=== PATIENT | male | born 1950 | race Caucasian/White ===

== ENCOUNTER 2020-03-25 06:07 | Emergency (ER) | payer MEDICARE, SELFPAY ==
[2020-03-25 06:12] VITALS: BP 144/79; PULSE 85; RESP 18; TEMP 36.7; O2SAT 98
--- NOTE | 2020-03-25 06:16 | ECG_ITS ---
Measurements Intervals [place] Rate: 85 P: 22 [place]: 154 QRS: -7 QRSD: 97 T: 0 QT: 407 QTc: 484 Interpretive Statements SINUS RHYTHM NONSPECIFIC ST & T-WAVE ABNORMALITY- DIFFUSE LEADS BASELINE ARTIFACT- II, III, AVR, AVL, AVF, V1-V4 BORDERLINE ECG Electronically Signed On 03-25-2020 7:00:24 CDT by Elian Beth D.O.
--- NOTE | 2020-03-25 06:22 | PC.NURSE ---
pt ambulated to restroom w/ no difficulty.
[2020-03-25 06:28] LABS: Basophils Percent Auto 0.4 % (0.2-1.2); Eosinophils Absolute Auto 0.1 K/mm3 (0-0.3); Eosinophils Percent Auto 1.2 % (0-4.4); Hematocrit 42.1 % (42.0-52.0); Hemoglobin 14.9 g/dL (14.0-18.0); Immature Granulocyte Absolute 0.02 K/mm3 (0.00-0.031); Immature Granulocyte Percent A 0.2 % (0-0.5); Lymphocytes Absolute Auto 2.41 K/mm3 (0.9-3.2); Lymphocytes Percent Auto 27.1 % (18.3-44.2); Mean Corpuscular HGB Conc 35.4 g/dl (32-36); Mean Corpuscular Hemoglobin 31.2 pg (26-34); Mean Corpuscular Volume 88.3 fl (80-100); Mean Platelet Volume 8.8 fl (7.4-10.4); Monocytes Absolute Auto 0.9 K/mm3 (0.1-0.6); Neutrophils Absolute Auto 5.4 K/mm3 (1.3-6.7); Neutrophils Percent Auto 61.1 % (45.5-73.1); Platelet Count Result 354 k/mm3 (150-375); Red Blood Count 4.77 M/mm3 (4.6-6.20); Red Cell Distribution Width 13.2 % (11.5-14.5); White Blood Count 8.9 K/mm3 (4.5-10.0)
[2020-03-25 06:40] LABS: Alanine Aminotransferase 81 U/L (4-50); Albumin Level 4.2 g/dL (3.5-5.1); Alkaline Phosphatase 86 U/L (38-126); Anion Gap 12.1 mmol/L (7-16); Aspartate Amino Transferase 58 U/L (17-59); Bilirubin,Total 0.5 mg/dL (0.2-1.3); Blood Urea Nitrogen 11 mg/dL (9-20); Calcium 8.5 mg/dL (8.4-10.2); Carbon Dioxide 24 mmol/L (22-30); Chloride 106 mmol/L (98-107); Estimated CRCL calculation 115 ml/min; Estimated Glomerular Filt Rate > 60; Glucose 105 mg/dL (75-110); Potassium 3.1 mmol/L (3.4-5.0); Sodium 139 mmol/L (137-145)
[2020-03-25 06:40] LABS: Add Urine Microscopic? YES; Appearance Urine Clear (Clear); Bilirubin Urine Negative (Negative); Blood Urine Negative (Negative); Color Urine Yellow (Yellow); Glucose Urine UA Negative (Negative); Ketones Urine Trace mg/dL (Negative); Leukocyte Esterase Ur Negative LEU/UL (Negative); Mucus Urine Rare /lpf; Nitrate Urine Negative (Negative); Protein Urine Negative (Negative); RBC Urine 0-2 /hpf (0-2); Specific Grav Ur 1.025 (1.001-1.035); Squamous Epithelial Cell Urine Rare /hpf (Few); WBC Urine 0-3 /hpf
--- NOTE | 2020-03-25 07:39 | ED.GENADULT ---
HPI - General Adult General Chief complaint: Weakness Stated complaint: weakness Time Seen by Provider: 03/25/20 07:07 History of Present Illness HPI narrative: Patient is a 69-year-old male who presents the ER with fatigue. Reports she is unable to sleep last night and came to the hospital hoping he could obtain a prescription for a sleeping pill. She has tried no sleeping aids tonight. Unsure why cannot fall asleep. He has no other complaints other than the fact that he is developed some aching in his lower extremities in the last 30 to 60 minutes since being in the ER. Patient is not feeling much sleepier. He has no complaints of chest pain, dyspnea, fever, chills, nausea, vomiting. Related Data Home Medications Medication Instructions Recorded Confirmed Bupenorphine 08/21/19 Zalepon 08/21/19 amlodipine 5 mg PO DAILY 08/21/19 08/21/19 finasteride 5 mg PO DAILY 08/21/19 08/21/19 gabapentin 400 mg PO BID 08/21/19 08/21/19 hydrochlorothiazide 25 mg PO DAILY 08/21/19 08/21/19 meloxicam 15 mg PO DAILY 08/21/19 08/21/19 nortriptyline 75 mg PO HS 08/21/19 08/21/19 pramipexole 0.25 mg PO BID 08/21/19 08/21/19 tamsulosin 0.8 mg PO HS 08/21/19 08/21/19 Allergies Allergy/AdvReac Type Severity Reaction Status Date / Time No Known Allergies Allergy Mild Verified 08/21/19 13:31 Review of Systems Review of Systems: All systems reviewed & are unremarkable except as noted in HPI and below Constitutional: Constitutional: Denies chills and Denies fever(s) Cardiovascular: Cardiovascular: Denies chest pain Respiratory: Respiratory: Denies cough and Denies dyspnea Gastrointestinal: Gastrointestinal: Denies abdominal pain, Denies nausea and Denies vomiting Musculoskeletal: Comments: Aches in lower extremities bilaterally. [facility] Past Medical History Medical History (Updated 03/25/20 @ 07:51 by Ra Winn MD) Anxiety BPH (benign prostatic hyperplasia) Depression HTN (hypertension), benign Sleep apnea Surgical History Surgical History (Updated 03/25/20 @ 07:48 by Ra Winn MD) No pertinent past surgical history Social History Social History (Updated 03/25/20 @ 07:48 by Ra Winn MD) Social History: Denies smoking Exam Narrative: Exam Narrative: GENERAL: Well-appearing, well-nourished, and in no acute distress. HEAD: Normocephalic, atraumatic. ENT: Mucous membranes moist. CHEST: Clear to auscultation. No respiratory distress. HEART: Regular rate and rhythm. Normal peripheral pulses. ABDOMEN: Soft, nontender, nondistended. EXTREMITIES: Normal range of motion. No edema. Negative Homans sign. SKIN: Warm, dry, no rash. NEURO: Alert and oriented x3. Course Course Emergency Course: Unremarkable evaluation. Discussed with patient that sleeping pills or not prescribed to the ER. Recommend follow-up with PCP. Unremarkable lab work and EKG. Vital Signs Vital signs: Vital Signs Temperature 98.0 F 03/25/20 06:12 Pulse Rate 85 03/25/20 06:12 Respiratory Rate 18 03/25/20 06:12 Blood Pressure 144/79 H 03/25/20 06:12 Pulse Oximetry 98 03/25/20 06:12 Temperature 98.0 F 03/25/20 06:12 Pulse Rate 85 03/25/20 06:12 Respiratory Rate 18 03/25/20 06:12 Blood Pressure 144/79 H 03/25/20 06:12 Pulse Oximetry 98 03/25/20 06:12 Medical Decision Making Vital Signs Vital Signs: Vital Signs Temperature 98.0 F 03/25/20 06:12 Pulse Rate 85 03/25/20 06:12 Respiratory Rate 18 03/25/20 06:12 Blood Pressure 144/79 H 03/25/20 06:12 Pulse Oximetry 98 03/25/20 06:12 Temperature 98.0 F 03/25/20 06:12 Pulse Rate 85 03/25/20 06:12 Respiratory Rate 18 03/25/20 06:12 Blood Pressure 144/79 H 03/25/20 06:12 Pulse Oximetry 98 03/25/20 06:12 Lab Data Result diagrams: 03/25/20 06:20 03/25/20 06:20 Labs: Lab Results 03/25/20 03/25/20 03/25/20 Range/Units 06:20 06:20 06:29 WBC 8.9 (4.5-
[2020-03-25 08:01] VITALS: BP 151/76; PULSE 83; RESP 20; O2SAT 98
== END 2020-03-25 08:02 | disposition home or self-care (01) ==
PROVIDERS: Emergency Medicine; Emergency Provider Emergency Medicine
DX: R53.83 Other fatigue (principal); G47.9 Sleep disorder, unspecified; F41.9 Anxiety disorder, unspecified; N40.0 Benign prostatic hyperplasia without lower urinary tract symptoms; F32.9 Major depressive disorder, single episode, unspecified; I10 Essential (primary) hypertension; G47.30 Sleep apnea, unspecified; R94.31 Abnormal electrocardiogram [ECG] [EKG]
CPT/HCPCS: 36415; 80053; 81001; 85025; 93005; 99283

== ENCOUNTER 2020-03-28 14:36 | Emergency (ER) | payer MEDICARE, SELFPAY ==
[2020-03-28 14:54] VITALS: BP 154/81; PULSE 92; RESP 20; TEMP 36.4; O2SAT 98
--- NOTE | 2020-03-28 15:25 | ED.MALEGU ---
HPI - Male Genitourinary General Chief complaint: Urogenital-Male Stated complaint: pos bladder infection Source: patient and RN notes reviewed Mode of arrival: ambulatory Limitations: no limitations History of Present Illness HPI Narrative: The patient, who has a prior history of BPH and quinolone resistant E. coli UTI, presents with urinary frequency. Patient states he has had recent normal lab testing including creatinine; and now has about 1/2-week or 3-day history of urinary frequency & urgency. No fever, low back pain, hematuria, abdominal pain, discharge, rash, noncompliance with meds [Proscar, Flomax etc]. Symptoms are like prior UTI couple years ago, are mild, keep him awake at night/insomnia, and are worse with micturition. Related Data Home Medications Medication Instructions Recorded Confirmed Bupenorphine 08/21/19 Zalepon 08/21/19 amlodipine 5 mg PO DAILY 08/21/19 03/28/20 finasteride 5 mg PO DAILY 08/21/19 03/28/20 gabapentin 400 mg PO BID 08/21/19 03/28/20 hydrochlorothiazide 25 mg PO DAILY 08/21/19 03/28/20 meloxicam 15 mg PO DAILY 08/21/19 03/28/20 nortriptyline 75 mg PO HS 08/21/19 03/28/20 pramipexole 0.25 mg PO BID 08/21/19 03/28/20 tamsulosin 0.8 mg PO HS 08/21/19 03/28/20 Allergies Allergy/AdvReac Type Severity Reaction Status Date / Time No Known Allergies Allergy Mild Verified 03/28/20 15:06 Review of Systems Review of Systems: Narrative: General/Constitutional: No weight loss,fever Eyes: N0: Redness,discharge Ears/Nose/Throat: No: Epistaxis,ear discharge Respiratory: Denies: Hemoptysis Gastrointestinal: No Vomiting, Bleeding-rectal Skin: No Lumps, eruption Neurologic: No Focal Weakness,Sz Hematologic: Denies: Petechiae/Purpura Psychiatric: No: Suicida ideationl All Other Systems: Reviewed and Negative [facility] Past Medical History Medical History (Updated 03/28/20 @ 15:53 by Alton Miller MD) Anxiety BPH (benign prostatic hyperplasia) Depression HTN (hypertension), benign Sleep apnea Surgical History Surgical History (Updated 03/25/20 @ 07:48 by aR Winn MD) No pertinent past surgical history Social History Social History (Updated 03/25/20 @ 07:48 by Ra Winn MD) Social History: Denies smoking Comments At time of signature, agree with nursing past medical, surgical, social and family history. There is no relevant family history pertinent to the presenting complaint Exam Narrative: Exam Narrative: General Appearance: Well appearing, Conjunctiva clear Ears: External ear normal Nose: Normal nose Mouth/Throat: Normal appearing, Normal lips Supple Respiratory: Airway patent, No respiratory distress Cardiovascular: no JVD Abdomen: Soft, Non-tender, No massess, overweight, No organomegaly (no rebound/ surgical signs), no CVAT Musculoskeletal: Full strength Skin: Warm, Dry Neurological: A&O x3, Normal affect Course Vital Signs Vital signs: Vital Signs Temperature 97.6 F 03/28/20 14:54 Pulse Rate 92 03/28/20 14:54 Respiratory Rate 20 03/28/20 14:54 Blood Pressure 154/81 H 03/28/20 14:54 Pulse Oximetry 98 03/28/20 14:54 Temperature 97.6 F 03/28/20 14:54 Pulse Rate 92 03/28/20 14:54 Respiratory Rate 20 03/28/20 14:54 Blood Pressure 154/81 H 03/28/20 14:54 Pulse Oximetry 98 03/28/20 14:54 MDM - Male Genitourinary Lab Data Labs: Urine Glucose Negative Reference Range: Negative Urine Bilirubin Negative Reference Range: Negative Urine Ketone Negative Reference Range: Negative Urine Specific [place] 1.025 Reference Range:1.001-1.035 Urine Blood Trace Reference Range: Negative * * Urine pH 6.5 Reference Range: 5.0-9.0 Urine Protein Negative Reference Range: Negativ
== END 2020-03-28 15:46 | disposition home or self-care (01) ==
PROVIDERS: Emergency Provider Emergency Medicine
DX: R35.0 Frequency of micturition (principal); G47.00 Insomnia, unspecified; I10 Essential (primary) hypertension; N40.0 Benign prostatic hyperplasia without lower urinary tract symptoms
CPT/HCPCS: 81003; 87086; 99213; G0463

== ENCOUNTER 2023-08-09 14:30 | Emergency (ER) | payer MEDICARE, SELFPAY ==
--- NOTE | ~2023-08-09 | XR_ITS ---
XR hip LT min 2V 08/09/2023 15:05 INDICATION: Left hip pain for 4 days. Prior surgery. PROCEDURE: 2 views left hip COMPARISON: No prior studies for comparison. FINDINGS: Fracture, dislocation or subluxation is not identified. There is mild osteoarthritis of the hip. The soft tissues appear within normal limits. No foreign bodies are identified. There is an in tramedullary annabelle and interlocking screw involving the proximal aspect of the femur. IMPRESSION: 1: NO ACUTE BONE OR JOINT ABNORMALITY IDENTIFIED. Reviewed, dictated and finalized at location A. [employer]
[2023-08-09 14:40] VITALS: BP 146/73; PULSE 70; RESP 18; TEMP 36.3; O2SAT 100
[2023-08-09] MEDS: KETOROLAC 30 MG/ML VIAL (*BKC) IM (16:44)
[2023-08-09] MEDS: diazePAM (*CRX) 2 MG TABLET PO (16:44)
--- NOTE | 2023-08-09 17:19 | ED.GENADULT ---
HPI - General Adult General Chief complaint: Extremity Problem,Nontraumatic Stated complaint: left hip pain Time Seen by Provider: 08/09/23 16:02 History of Present Illness HPI narrative: Patient is a 72-year-old male who presents ER with pain behind his left leg moving towards the hip. Ongoing for several days. Yesterday was having trouble getting up out of a rolling chair and required multiple people to help pull him up. Today he has been unable to stand up out of a chair and has been having bowel movements on himself. He when he is assisted to standing he shot some pain has pain behind the thigh. It is not located in his back. No known fall or trauma. Outpatient x-ray at [facility] was negative for injury several days ago. Patient has no swelling to the leg. No chest pain or shortness of breath. Has tried alternating Tylenol and ibuprofen which helped initially but is no longer controlling the discomfort. Patient does have some dementia and history is obtained from his . Related Data Home Medications Medication Instructions Recorded Confirmed Bupenorphine 08/21/19 Zalepon 08/21/19 amlodipine 5 mg tablet 5 mg PO DAILY 08/21/19 03/28/20 finasteride 5 mg tablet 5 mg PO DAILY 08/21/19 03/28/20 gabapentin 400 mg capsule 400 mg PO BID 08/21/19 03/28/20 hydrochlorothiazide 25 mg tablet 25 mg PO DAILY 08/21/19 03/28/20 meloxicam 15 mg tablet 15 mg PO DAILY 08/21/19 03/28/20 nortriptyline 25 mg capsule 75 mg PO HS 08/21/19 03/28/20 pramipexole 0.25 mg tablet 0.25 mg PO BID 08/21/19 03/28/20 tamsulosin 0.4 mg capsule 0.8 mg PO HS 08/21/19 03/28/20 Allergies Allergy/AdvReac Type Severity Reaction Status Date / Time No Known Allergies Allergy Mild Verified 08/09/23 16:01 Review of Systems Musculoskeletal: Musculoskeletal: Denies back pain, Reports arthralgias and Denies joint swelling Integumentary/Breasts: Skin/Breast: Denies erythema and Denies rash Neurologic: Denies focal weakness and Denies numbness [facility] Past Medical History Medical History (Updated 08/09/23 @ 17:59 by Ra Winn MD) Anxiety BPH (benign prostatic hyperplasia) Depression HTN (hypertension), benign Sleep apnea Surgical History Surgical History (Updated 03/25/20 @ 07:48 by Ra Winn MD) No pertinent past surgical history Social History Social History (Updated 03/25/20 @ 07:48 by Ra Winn MD) Social History: Denies smoking Exam Narrative: GENERAL: Well-appearing, well-nourished, and in no acute distress. HEAD: Normocephalic, atraumatic. CHEST: Clear to auscultation. No respiratory distress. HEART: Regular rate and rhythm. Normal peripheral pulses. EXTREMITIES: Normal range of motion. No edema. Pain with straight leg raise on the left side and pain is located at the posterior aspect of the mid and proximal thigh. There is no palpable spasm. No visual evidence of trauma to the extremity. SKIN: Warm, dry, no rash. NEURO: Awake alert and neurologic baseline. PSYCH: Normal mood and affect. Course Course Emergency Course: Patient with persistent pain despite Toradol and 9:00 a.m.. He has pain when trying to ambulate. would like to have him go back to his facility and feels like he receives excellent care despite mobility limitation. Will continue take Tylenol and ibuprofen for the pain in medial and on muscle relaxers for home. It is felt this is a muscular injury. Imaging negative. Vital Signs Vital signs: Vital Signs Temperature 97.3 F L 08/09/23 14:40 Pulse Rate 70 08/09/23 14:40 Respiratory Rate 18 08/09/23 14:40 Blood Pressure 146/73 H 08/09/23 14:40 Pulse Oximetry 100 08/09/23 14:40 Oxygen Delivery Room Air 08/09/23 14:40 Temperature 97.3 F L 08/09/23 14:40 Pulse Rate 82 08/09/23 18:29 Respiratory Rate 21 H 08/09/23 18:29 Blood Pressure 152/84 H 08/09/23 18:29 Pulse Oximetry 96 08/09/23 18:29 Oxygen Delivery Room Air 08/09
[2023-08-09 18:29] VITALS: BP 152/84; PULSE 82; RESP 21; O2SAT 96
== END 2023-08-09 18:31 | disposition home or self-care (01) ==
PROVIDERS: Emergency Provider Emergency Medicine
DX: S76.812A Strain of other specified muscles, fascia and tendons at thigh level, left thigh, initial encounter (principal); T14.90XA Injury, unspecified, initial encounter; F03.90 Unspecified dementia, unspecified severity, without behavioral disturbance, psychotic disturbance, mood disturbance, and anxiety; I10 Essential (primary) hypertension
CPT/HCPCS: 73502; 96372; 99283; A9270; J1885

== ENCOUNTER → 2023-09-15 08:07 | Outpatient (CLI) | payer MEDICARE, SELFPAY ==
--- NOTE | ~2023-09-15 | CT_ITS ---
EXAMINATION: CT pelvis w con, CT hip RT w con DATE: 09/15/2023 09:06 INDICATION: Bilateral hip pain TECHNIQUE: 1. High resolution computed tomography (CT) of the pelvis was performed with 100 mL Omnipaque-350 int ravenous contrast. Additional sagittal and coronal reconstructions were performed. Automated exposure control and iterative reconstruction technique were employed. 2. CT of the right hip was obtained with 100 mL Omnipaque 350 intravenous contrast including small fi eld-of-view axial images and coronal reconstructed images right hip. Automated exposure control and i terative reconstruction technique were employed. The dose-length product of the combined studies was 718.14 mGy-cm. COMPARISON: Left hip radiographs dated 08/10/2023 FINDINGS: Bone alignment is normal. Partially visualized retrograde intramedullary annabelle fixation at the left fem oral diaphysis with subtrochanteric interlocking screw. No acute fracture or suspected avascular necr osis. Mild bilateral hip and sacroiliac osteoarthritis. No hip joint effusions, pelvis other abnormal free fluid in the pelvis or other abnormal fluid collections. Mild lower lumbar spondylosis with sev ere bilateral facet osteoarthritis at L5-S1 and moderate left and mild right facet osteoarthritis at L4-5. Visualized portions of bowels including the appendix are normal. Bladder is normal. No patholog ically enlarged pelvic or inguinal lymphadenopathy. IMPRESSION: 1. Mild bilateral hip and sacroiliac osteoarthritis. No acute osseous abnormality. 2. Mild lumbar spondylosis with moderate to severe lower lumbar facet osteoarthritis. Reviewed, dictated and finalized at location A. [employer] IMPRESSION: 1. Mild bilateral hip and sacroiliac osteoarthritis. No acute osseous abnormali ty. 2. Mild lumbar spondylosis with moderate to severe lower lumbar facet osteoarth ritis.
[2023-09-15 08:33] LABS: Estimated Glomerular Filt Rate > 60
== END ==
PROVIDERS: PCP Nurse Practitioner Family; Visit Provider Nurse Practitioner Family
DX: M25.551 Pain in right hip (principal); M16.0 Bilateral primary osteoarthritis of hip; M43.06 Spondylolysis, lumbar region; M85.88 Other specified disorders of bone density and structure, other site
CPT/HCPCS: 72193; 73701; Q9967

== ENCOUNTER 2024-05-02 10:36 | Emergency (ER) | payer MEDICARE, SELFPAY ==
[2024-05-02] VITALS (8 sets, daily range): BP systolic 87–159; BP diastolic 41–103; PULSE 77–91; RESP 14–24; TEMP 36.4; O2SAT 85–100
--- NOTE | ~2024-05-02 | XR_ITS ---
XR chest 1V portable Ordering provider: Abdelrahman Stanford MD History: 73 years Male with . hypoxia . Comparison: December 02, 2009 FINDINGS: MEDIASTINUM: The cardiac silhouette is not enlarged. LUNGS: No infiltrates, effusions or pneumothorax. OTHER: No free air under the diaphragm. Degenerative spine. IMPRESSION: No acute cardiopulmonary pathology Reviewed, dictated and finalized at location A.
[2024-05-02 13:11] LABS: Add Urine Microscopic? YES; Appearance Urine Clear (Clear); Bacteria Urine None Seen /hpf; Bilirubin Urine 1+ (Negative); Blood Urine Negative (Negative); Color Urine Dark Yellow (Yellow); Glucose Urine UA Negative (Negative); Ketones Urine 1+ mg/dL (Negative); Leukocyte Esterase Ur Negative LEU/UL (Negative); Nitrate Urine Negative (Negative); Non Pathogenic Casts 0-2; Protein Urine Trace mg/dL (Negative); Specific Grav Ur 1.025 (1.001-1.035); Squamous Epithelial Cell Urine None Seen /hpf (Few); WBC Urine 0-5 /hpf (0-3)
--- NOTE | 2024-05-02 13:11 | PC.NURSE ---
nurse at [facility] to fax copy of urine culture at this time
--- NOTE | 2024-05-02 13:37 | ECG_ITS ---
Test Date: 2024-05-02 13:52:53 Measurements Intervals [place] Rate: 85 P: 16 [place]: 163 QRS: 5 QRSD: 88 T: 233 QT: 401 QTc: 477 Interpretive Statements SINUS RHYTHM ATRIAL COUPLET AND ATRIAL PREMATURE COMPLEXES LOW QRS VOLTAGE IN PRECORDIAL LEADS LEFT VENTRICULAR HYPERTROPHY WITH ST-T CHANGE ST-T WAVE ABNORMALITY IN ANTEROLAT/INF LEADS- CONSIDER ISCHEMIA BASELINE ARTIFACT- I, II, III, AVR, AVL, AVF, V1-V6 ABNORMAL ECG No previous ECG available for comparison Electronically Signed On 05-02-2024 14:13:08 CDT by Elian Beth D.O.
--- NOTE | 2024-05-02 14:01 | ECG_ITS ---
Test Date: 2024-05-02 14:33:23 Measurements Intervals [place] Rate: 98 P: 0 AL: 0 QRS: 9 QRSD: 83 T: 242 QT: 359 QTc: 458 Interpretive Statements SINUS RHYTHM ATRIAL TRIPLET, ATRIAL COUPLET AND ATRIAL PREMATURE COMPLEX LOW QRS VOLTAGE IN PRECORDIAL LEADS LEFT VENTRICULAR HYPERTROPHY WITH ST-T CHANGE BORDERLINE ST-T WAVE ABNORMALITY- ANTERAOLAT/INF LEADS BASELINE ARTIFACT- I, II, III, AVR, AVL, AVF, V1-V3 ABNORMAL ECG Compared to ECG 05/02/2024 13:52:53 NO SIGNIFICANT CHANGE Electronically Signed On 05-02-2024 14:51:55 CDT by Elian Beth D.O.
[2024-05-02 14:04] LABS: Basophils Percent Auto 0.5 % (0.2-1.2); Eosinophils Percent Auto 0.4 % (0-4.4); Hematocrit 49.8 % (42.0-52.0); Hemoglobin 17.8 g/dL (14.0-18.0); Immature Granulocyte Absolute 0.02 K/mm3 (0.00-0.031); Immature Granulocyte Percent A 0.2 % (0-0.5); Lymphocytes Absolute Auto 2.66 K/mm3 (0.9-3.2); Lymphocytes Percent Auto 32.3 % (18.3-44.2); Mean Corpuscular HGB Conc 35.7 g/dl (32-36); Mean Corpuscular Hemoglobin 33.5 pg (26-34); Mean Corpuscular Volume 93.8 fl (80-100); Mean Platelet Volume 9.2 fl (7.4-10.4); Monocytes Absolute Auto 0.9 K/mm3 (0.1-0.6); Monocytes Percent Auto 11.3 % (2.6-8.5); Neutrophils Absolute Auto 4.6 K/mm3 (1.3-6.7); Neutrophils Percent Auto 55.3 % (45.5-73.1); Platelet Count Result 255 k/mm3 (150-375); Red Blood Count 5.31 M/mm3 (4.6-6.20); Red Cell Distribution Width 13.5 % (11.5-14.5); White Blood Count 8.2 K/mm3 (4.5-10.0)
[2024-05-02 14:12] LABS: Lactic Acid Reflex 1.6 mmol/L (0.7-2.0)
[2024-05-02 14:14] LABS: Alanine Aminotransferase 32 U/L (6-50); Albumin Level 4.3 g/dL (3.5-5.1); Alkaline Phosphatase 68 U/L (38-126); Anion Gap 13 mmol/L (4-12); Aspartate Amino Transferase 46 U/L (17-59); Bilirubin,Total 1.2 mg/dL (0.2-1.3); Blood Urea Nitrogen 13 mg/dL (9-20); Calcium 9.1 mg/dL (8.4-10.2); Carbon Dioxide 26 mmol/L (22-30); Chloride 97 mmol/L (98-107); Estimated Glomerular Filt Rate > 60; Glucose 95 mg/dL (65-110); Potassium 2.9 mmol/L (3.4-5.0); Sodium 136 mmol/L (137-145)
[2024-05-02 14:25] LABS: NT Pro B Type Natriuretic Pept 126 pg/mL (19.9-100); Troponin I < 0.012 ng/mL (0.000-0.034)
--- NOTE | 2024-05-02 15:36 | PC.NURSE ---
Alesha at [facility] called requesting update on pt
--- NOTE | 2024-05-02 17:16 | ED.GENADULT ---
HPI - General Adult General Chief complaint: Urogenital-Male Stated complaint: uti Time Seen by Provider: 05/02/24 12:50 History of Present Illness HPI narrative: Patient 73-year-old gentleman presents emergency department with chief complaint of UTI. Patient was reported to have a positive urine culture from the facility but is currently having no complaints EMS also reports that the facility was having a difficult time measuring his oxygen level and could not get a class on their pulse ox upon arrival to the emergency department the patient has had no issues with hypoxia. Related Data Home Medications Medication Instructions Recorded Confirmed Bupenorphine 08/21/19 Zalepon 08/21/19 amlodipine 5 mg tablet 5 mg PO DAILY 08/21/19 03/28/20 finasteride 5 mg tablet 5 mg PO DAILY 08/21/19 03/28/20 gabapentin 400 mg capsule 400 mg PO BID 08/21/19 03/28/20 hydrochlorothiazide 25 mg tablet 25 mg PO DAILY 08/21/19 03/28/20 meloxicam 15 mg tablet 15 mg PO DAILY 08/21/19 03/28/20 nortriptyline 25 mg capsule 75 mg PO HS 08/21/19 03/28/20 pramipexole 0.25 mg tablet 0.25 mg PO BID 08/21/19 03/28/20 tamsulosin 0.4 mg capsule 0.8 mg PO HS 08/21/19 03/28/20 Allergies Allergy/AdvReac Type Severity Reaction Status Date / Time No Known Allergies Allergy Mild Verified 08/09/23 16:01 Review of Systems Review of Systems: A 10 system review of systems was completed on the patient and is negative except for what is stated in the HPI. Nursing and ancillary documentation was reviewed. PMFSH Past Medical History Medical History Anxiety BPH (benign prostatic hyperplasia) Depression HTN (hypertension), benign Sleep apnea Surgical History Surgical History No pertinent past surgical history Social History Social History Social History: Denies smoking Exam Narrative: GENERAL: Well-appearing, well-nourished, and in no acute distress. HEAD: Normocephalic, atraumatic. EYES: PERRLA and EOMI. ENT: Nares clear, no rhinorrhea or epistaxis. Mucous membranes moist. NECK: Supple. CHEST: Clear to auscultation. No respiratory distress. HEART: Regular rate and rhythm. No murmur heard. Normal peripheral pulses. ABDOMEN: Soft, nontender, nondistended, normal active bowel sounds. EXTREMITIES: Normal range of motion. No edema. SKIN: Warm, dry, no rash. NEURO: No focal deficits. Alert and oriented to baseline. PSYCH: Normal mood and affect. Course Vital Signs Vital signs: Vital Signs Temperature 36.4 C L 05/02/24 10:39 Pulse Rate 87 05/02/24 10:39 Respiratory Rate 20 05/02/24 10:39 Blood Pressure 87/41 L 05/02/24 10:39 Pulse Oximetry 100 05/02/24 10:39 Oxygen Delivery Room Air 05/02/24 10:39 Temperature 36.4 C L 05/02/24 10:39 Pulse Rate 78 05/02/24 17:15 Respiratory Rate 19 05/02/24 17:15 Blood Pressure 147/88 H 05/02/24 17:15 Pulse Oximetry 99 05/02/24 17:15 Oxygen Delivery Room Air 05/02/24 15:04 Oxygen Flow Rate 3 05/02/24 10:49 Medical Decision Making MDM Narrative Medical decision making narrative: Laboratory studies were obtained on the patient showed a normal CBC CMP showed no acute abnormalities urinalysis showed no leukocyte esterase no white blood cells negative bacteria and no cast. Given the patient has a negative urinalysis that this time the case was discussed with the patient's nurse practitioner from the facility who recommended sending the patient back to the nursing facility and she will follow up with a repeat culture Vital Signs Vital Signs: Vital Signs Temperature 36.4 C L 05/02/24 10:39 Pulse Rate 87 05/02/24 10:39 Respiratory Rate 20 05/02/24 10:39 Blood Pressure 87/41 L 05/02/24 10:39 Pulse Oximetry 100 05/02/24 10:39 Oxygen Delivery Room Air
== END 2024-05-02 19:16 ==
PROVIDERS: Student in an Organized Health Care Education/Training Program; Emergency Provider Emergency Medicine; PCP Nurse Practitioner Family
DX: Z03.89 Encounter for observation for other suspected diseases and conditions ruled out (principal); I10 Essential (primary) hypertension; N40.0 Benign prostatic hyperplasia without lower urinary tract symptoms; G47.30 Sleep apnea, unspecified; F41.9 Anxiety disorder, unspecified; F32.A Depression, unspecified; Z79.899 Other long term (current) drug therapy; R00.8 Other abnormalities of heart beat; I49.1 Atrial premature depolarization; I51.7 Cardiomegaly; R94.31 Abnormal electrocardiogram [ECG] [EKG]
CPT/HCPCS: 36415; 71045; 80053; 81001; 83605; 83880; 84145; 84484; 85025; 93005; 99284

== ENCOUNTER 2024-06-09 18:40 | Emergency (ER) | payer MEDICARE, SELFPAY ==
[2024-06-09] VITALS (8 sets, daily range): BP systolic 100–139; BP diastolic 62–99; PULSE 72–83; RESP 14–18; TEMP 36.5–36.6; O2SAT 95–100
--- NOTE | ~2024-06-09 | CT_ITS ---
CT brain wo con Ordering provider: Samir Azevedo MD History: 73 years Male with . trauma . Comparison: None. Technique: CT of the head without contrast. Radiation reduction technique utilized. The dose-length product was 681 mGy-cm. FINDINGS: BRAIN PARENCHYMA AND CSF SPACES: Mild leukoaraiosis and diffuse cortical atrophy. Mild atheromatous d isease. No midline shift, mass effect or hemorrhage. The brain parenchyma and CSF spaces are otherwi se normal. VISUALIZED PARANASAL SINUSES: Left maxillary sinus disease. MASTOIDS: Well aerated. BONES: The bones appear intact. SOFT TISSUES: Visualized nasopharynx is normal. Superficial soft tissues are normal. IMPRESSION: No acute intracranial findings. Reviewed, dictated and finalized at location A.
--- NOTE | ~2024-06-09 | XR_ITS ---
XR chest 1V portable Ordering provider: Zoila Brock History: 73 years Male with . fall; rib pain . Comparison: May 02 2024 FINDINGS: MEDIASTINUM: The cardiac silhouette is not enlarged. LUNGS: No infiltrates, effusions or pneumothorax. Fibrotic changes of the lungs. OTHER: No free air under the diaphragm. IMPRESSION: No acute cardiopulmonary pathology. Reviewed, dictated and finalized at location A.
--- NOTE | ~2024-06-09 | XR_ITS ---
SINGLE AP VIEW PELVIS Ordering provider: Samir Azevedo MD History: . fall . Comparison: August 09, 2023 FINDINGS: BONES: No acute fracture or dislocation. Postoperative changes in the proximal left femur. HIP JOINT SPACES: Normal. SACROILIAC JOINT SPACES/LUMBAR SPINE: The sacroiliac joint spaces are normal. Mild degenerative knapp es of the visualized lower lumbar spine. PUBIC SYMPHYSIS: Normal. SOFT TISSUES: Normal. IMPRESSION: No acute osseous abnormality pelvis. Reviewed, dictated and finalized at location A.
--- NOTE | 2024-06-09 19:29 | ED.FALL ---
HPI - Fall General Chief Complaint: Fall Stated Complaint: fall Time Seen by Provider: 06/09/24 19:02 Source: patient Mode of arrival: EMS Limitations: no limitations History of Present Illness HPI Narrative: 73-year-old from senior care presenting for trip and fall bed. He said initially had some pain in his buttock but that is gone away. Denies any headache, lightheadedness, musculoskeletal pain at this point. Does have a history of dementia,Parkinson's As well. Related Data Home Medications Medication Instructions Recorded Confirmed Bupenorphine 08/21/19 Zalepon 08/21/19 amlodipine 5 mg tablet 5 mg PO DAILY 08/21/19 03/28/20 finasteride 5 mg tablet 5 mg PO DAILY 08/21/19 03/28/20 gabapentin 400 mg capsule 400 mg PO BID 08/21/19 03/28/20 hydrochlorothiazide 25 mg tablet 25 mg PO DAILY 08/21/19 03/28/20 meloxicam 15 mg tablet 15 mg PO DAILY 08/21/19 03/28/20 nortriptyline 25 mg capsule 75 mg PO HS 08/21/19 03/28/20 pramipexole 0.25 mg tablet 0.25 mg PO BID 08/21/19 03/28/20 tamsulosin 0.4 mg capsule 0.8 mg PO HS 08/21/19 03/28/20 Allergies Allergy/AdvReac Type Severity Reaction Status Date / Time No Known Allergies Allergy Mild Verified 08/09/23 16:01 Review of Systems Review of Systems: All systems reviewed & are unremarkable except as noted in HPI and below PMFSH Past Medical History Medical History Anxiety BPH (benign prostatic hyperplasia) Depression HTN (hypertension), benign Sleep apnea Surgical History Surgical History No pertinent past surgical history Social History Social History Social History: Denies smoking Exam Narrative: Constitutional: Generally well appearing, no acute distress Head: Atraumatic, no deformities. Eyes: Pupils equal, round, and reactive to light. Neck: Supple, no tracheal deviation, no JVD. ENMT: Mucous membranes moist Cardiovascular: S1, S2 auscultated. No murmurs, rubs, or gallops. No S3/S4. Normal Distal pulses. No peripheral edema. Respiratory: Lung sounds equal. No wheezes, rales, or rhonchi. Gastrointestinal: Abdomen was soft and non-tender. Non-distended. No rebound or guarding. Genitourinary: Deferred Musculoskeletal: Normal muscle tone and bulk. No obvious deformities or tenderness over extremities. Skin: No rashes. Neurological: Strength 5/5 in extremities. Cranial nerves I-XII grossly intact. Distal sensation intact. Mental Status: Awake, alert and oriented to baseline. Follows commands Course Vital Signs Vital signs: Vital Signs Temperature 36.6 C 06/09/24 18:42 Pulse Rate 81 06/09/24 18:42 Respiratory Rate 15 06/09/24 18:42 Blood Pressure 139/99 H 06/09/24 18:42 Pulse Oximetry 100 06/09/24 18:42 Oxygen Delivery Room Air 06/09/24 18:42 Temperature 36.6 C 06/09/24 18:42 Pulse Rate 81 06/09/24 18:42 Respiratory Rate 15 06/09/24 18:42 Blood Pressure 139/99 H 06/09/24 18:42 Pulse Oximetry 100 06/09/24 18:42 Oxygen Delivery Room Air 06/09/24 18:42 MDM - Fall MDM Narrative Medical decision making narrative: 73-year-old here after a fall but it is senior care. Has dementia, seems to be his baseline mentation. Not complaining of any pain. Exam generally unremarkable. No bony tenderness is no obvious trauma. Obtaining CT head, chest x-ray, pelvis x-ray due to age And patient is generally a poor historian due to dementia. Imaging is all negative. Pt feeling improved and would like to go home at this point. Return precautions were given to the patient include any new or worsening symptoms or development of and not limited to any chest pain, shortness of breath, lightheadedness, abdominal pain, fevers, chills. Patient understands and agrees. They are to follow-up with her PCP. All questions were answered. I reviewed t
== END 2024-06-09 23:14 | disposition home or self-care (01) ==
PROVIDERS: Emergency Provider Emergency Medicine; PCP Nurse Practitioner Family
DX: S00.11XA Contusion of right eyelid and periocular area, initial encounter (principal); F03.90 Unspecified dementia, unspecified severity, without behavioral disturbance, psychotic disturbance, mood disturbance, and anxiety; G20.A1 Parkinson's disease without dyskinesia, without mention of fluctuations; I10 Essential (primary) hypertension; N40.0 Benign prostatic hyperplasia without lower urinary tract symptoms; G47.30 Sleep apnea, unspecified; F41.9 Anxiety disorder, unspecified; F32.A Depression, unspecified; Z79.899 Other long term (current) drug therapy; W06.XXXA Fall from bed, initial encounter
CPT/HCPCS: 70450; 71045; 72170; 99284

== ENCOUNTER 2024-06-19 14:25 | Emergency (ER) | payer MEDICARE, SELFPAY ==
[2024-06-19] VITALS (33 sets, daily range): BP systolic 97–202; BP diastolic 73–163; PULSE 66–89; RESP 13–24; TEMP 36.4–36.6; O2SAT 83–100
--- NOTE | ~2024-06-19 | XR_ITS ---
[id number] Ordering provider: Ra Winn MD History: . pain . Comparison: None. FINDINGS: BONES: Possible fracture of the right fifth rib.. Degenerative changes of the spine. LUNGS: No effusions or infiltrates. No pneumothorax. SOFT TISSUES: Normal. Calcifications in the right paraspinal area and the upper abdomen. IMPRESSION: Possible fracture in the right fifth rib. Clinical correlation and follow-up advised Reviewed, dictated and finalized at location A. IMPRESSION: Possible fracture in the right fifth rib. Clinical correlation and follow-up ad vised
--- NOTE | 2024-06-19 18:33 | ED.GENADULT ---
HPI - General Adult General Chief complaint: Recheck/Abnormal Lab/Rx Stated complaint: rib fx Time Seen by Provider: 06/19/24 16:08 History of Present Illness HPI narrative: Patient is a 73-year-old male who presents ER for evaluation for rib fracture. Patient fell last couple of weeks. He was seen in the ER in 100 chest x-ray and pelvis x-ray as well as a CT scan head. Patient reports pain to the right chest wall with palpation but he has dementia and cannot give any other history. Related Data Home Medications Medication Instructions Recorded Confirmed Bupenorphine 08/21/19 Zalepon 08/21/19 amlodipine 5 mg tablet 5 mg PO DAILY 08/21/19 03/28/20 finasteride 5 mg tablet 5 mg PO DAILY 08/21/19 03/28/20 gabapentin 400 mg capsule 400 mg PO BID 08/21/19 03/28/20 hydrochlorothiazide 25 mg tablet 25 mg PO DAILY 08/21/19 03/28/20 meloxicam 15 mg tablet 15 mg PO DAILY 08/21/19 03/28/20 nortriptyline 25 mg capsule 75 mg PO HS 08/21/19 03/28/20 pramipexole 0.25 mg tablet 0.25 mg PO BID 08/21/19 03/28/20 tamsulosin 0.4 mg capsule 0.8 mg PO HS 08/21/19 03/28/20 Allergies Allergy/AdvReac Type Severity Reaction Status Date / Time No Known Allergies Allergy Mild Verified 06/19/24 14:41 Review of Systems Review of Systems: ROS unobtainable: Yes unobtainable due to medical condition PMFSH Past Medical History Medical History Anxiety BPH (benign prostatic hyperplasia) Depression HTN (hypertension), benign Sleep apnea Surgical History Surgical History No pertinent past surgical history Social History Social History Social History: Denies smoking Exam Narrative: GENERAL: Well-appearing, well-nourished, and in no acute distress. HEAD: Normocephalic, atraumatic. ENT: Mucous membranes moist. CHEST: Clear to auscultation. No respiratory distress. tender palpation over lateral right chest wall. HEART: Regular rate and rhythm. Normal peripheral pulses. EXTREMITIES: Normal range of motion. No edema. SKIN: Warm, dry, no rash. NEURO: Alert and oriented x1. PSYCH: Normal mood and affect. Course Course Emergency Course: Likely right-sided 5th rib fracture. No pneumonia or pneumothorax. Patient is satting 100% on room air. Vital Signs Vital signs: Vital Signs Temperature 97.8 F 06/19/24 14:33 Pulse Rate 77 06/19/24 14:33 Respiratory Rate 18 06/19/24 14:33 Blood Pressure 135/102 H 06/19/24 14:33 Pulse Oximetry 98 06/19/24 14:33 Oxygen Delivery Room Air 06/19/24 14:33 Temperature 97.8 F 06/19/24 14:33 Pulse Rate 70 06/19/24 17:46 Respiratory Rate 15 06/19/24 17:46 Blood Pressure 202/163 H 06/19/24 17:46 Pulse Oximetry 83 L 06/19/24 17:16 Oxygen Delivery Room Air 06/19/24 14:33 Medical Decision Making Vital Signs Vital Signs: Vital Signs Temperature 97.8 F 06/19/24 14:33 Pulse Rate 77 06/19/24 14:33 Respiratory Rate 18 06/19/24 14:33 Blood Pressure 135/102 H 06/19/24 14:33 Pulse Oximetry 98 06/19/24 14:33 Oxygen Delivery Room Air 06/19/24 14:33 Temperature 97.8 F 06/19/24 14:33 Pulse Rate 70 06/19/24 17:46 Respiratory Rate 15 06/19/24 17:46 Blood Pressure 202/163 H 06/19/24 17:46 Pulse Oximetry 83 L 06/19/24 17:16 Oxygen Delivery Room Air 06/19/24 14:33 Imaging Data Radiologist's impression: ITS Impressions Ribs w/Chest X-Ray 06/19/24 16:47 IMPRESSION: Possible fracture in the right fifth rib. Clinical correlation and follow-up advised Discharge Plan Discharge Clinical Impression: Fracture of rib Patient Disposition: Home, Self-Care Condition: Stable Instructions: Rib Fracture (ED) Additional Instructions: Please return to the emergency department if you develop severe and persistent chest pain, difficulty breathing, dizziness, leg swelling or if you are coughing up blood as these can be signs of a medical emergency. Please call your doctor for a follow up appointment to determine the need for further testing. Take tylenol or ibuprofen for the pain. Prescriptions: No Action amlodipine 5 mg Tablet 5 mg PO DAILY pramipexole 0.25 mg Tablet 0.25 mg PO BID hydrochlorothiazide 25 mg Tablet 25 mg PO DAILY meloxicam 15 mg Tablet 15 mg PO DAILY nortriptyline 25 mg Capsule 75 mg PO HS finasteride 5 mg Tablet 5 mg PO DAILY tamsulosin 0.4 mg Capsule 0.8 mg PO HS Rx Instructions: with evening meals gabapentin 400 mg Capsule 400 mg PO BID Bupenorphine Zalepon melatonin 10 mg capsule 10 mg PO HS PRN (Reason: sleep) Qty: 5 0RF nitrofurantoin monohyd/m-cryst [Macrobid] 100 mg capsule 100 mg PO Q12H 5 Days Qty: 10 0RF Rx Instructions: must administer with a meal/food sulfamethoxazole-trimethoprim [Bactrim DS] 800-160 mg tablet 1 tablet PO Q12H Qty: 14 0RF phenazopyridine [Pyridium] 100 mg tablet 100 mg PO DAILY PRN (Reason: pain) Qty: 7 0RF temazepam [Restoril] 7.5 mg capsule 7.5 mg PO HS Qty: 7 0RF tizanidine 2 mg tablet 2 mg PO TID PRN (Reason: muscle spasticity) Qty: 15 0RF Follow-up/Referrals: Osorio,Judy Queen APRN [Primary Care Provider] - 1 Week
--- NOTE | 2024-06-19 18:34 | PC.NURSE ---
updated on phone.
== END 2024-06-19 21:35 ==
PROVIDERS: Emergency Provider Emergency Medicine; PCP Nurse Practitioner Family
DX: S22.31XA Fracture of one rib, right side, initial encounter for closed fracture (principal); F41.9 Anxiety disorder, unspecified; N40.0 Benign prostatic hyperplasia without lower urinary tract symptoms; F32.A Depression, unspecified; I10 Essential (primary) hypertension; G47.30 Sleep apnea, unspecified; W19.XXXA Unspecified fall, initial encounter
CPT/HCPCS: 71101; 99283

== ENCOUNTER 2024-11-07 12:00 | Emergency (ER) | payer MEDICARE, SELFPAY ==
[2024-11-07 12:05] VITALS: BP 109/84; PULSE 72; RESP 16; TEMP 36.6; O2SAT 98
--- NOTE | 2024-11-07 12:55 | PC.NURSE ---
Another RN spoke with pts and she stated pt does go in and out of being altered and that she was unable to come pick patient up at this time. [facility] was contacted for a ride and they state they would call us back. This RN spoke with RN from [facility] for transport for pt to go back to nursing facility. The pt is A&Ox4 and has stated multiple times he does not want to be seen and wants to be taken back home. [facility] stated since pt has hx of dementia and a POA that he had no choice but to be seen. This RN stated that the pt is currently A&Ox4 and that he does not want to be seen and we cannot force him to be seen as that is assault to the patient. [facility] staff state they understand and would send transport for pt and they would arrive before 1400 today.
--- NOTE | 2024-11-07 13:17 | ED_ITS ---
HPI - General Adult General Chief complaint: Unspecified Stated complaint: Slid from wheelchair--no injuries per patient Time Seen by Provider: 11/07/24 13:17 Source: patient and EMS Mode of arrival: EMS Limitations: no limitations History of Present Illness HPI narrative: This is a 73-year-old male with PMH of mild dementia who presents to the ED via EMS from [facility]. He does have history of dementia, however he is alert oriented x 4 on arrival. Patient is explaining to myself and nursing staff that he feels fine and does not wish to be evaluated. Apparently it is [facility] protocol for him to be evaluated after fall. He denies head injury or any extremity injury. Related Data Home Medications ?Medication ?Instructions ?Recorded ?Confirmed ?Last Taken ?Type Bupenorphine 08/21/19 Unknown History Zalepon 08/21/19 Unknown History amlodipine 5 mg tablet 5 mg PO DAILY 08/21/19 03/28/20 Unknown History finasteride 5 mg tablet 5 mg PO DAILY 08/21/19 03/28/20 Unknown History gabapentin 400 mg capsule 400 mg PO BID 08/21/19 03/28/20 Unknown History hydrochlorothiazide 25 mg tablet 25 mg PO DAILY 08/21/19 03/28/20 Unknown History meloxicam 15 mg tablet 15 mg PO DAILY 08/21/19 03/28/20 Unknown History nortriptyline 25 mg capsule 75 mg PO HS 08/21/19 03/28/20 Unknown History pramipexole 0.25 mg tablet 0.25 mg PO BID 08/21/19 03/28/20 Unknown History tamsulosin 0.4 mg capsule 0.8 mg PO HS 08/21/19 03/28/20 Unknown History Allergies Allergy/AdvReac Type Severity Reaction Status Date / Time No Known Allergies Allergy Mild Verified 11/07/24 12:02 Review of Systems Review of Systems: All systems as dictated in HPI [facility] Past Medical History Medical History Anxiety BPH (benign prostatic hyperplasia) Depression HTN (hypertension), benign Sleep apnea Surgical History Surgical History No pertinent past surgical history Social History Social History Social History: Denies smoking Exam Narrative: GENERAL: Well-appearing, well-nourished, and in no acute distress. HEAD: Normocephalic, atraumatic. EYES: PERRLA and EOMI. ENT: Nares clear, no rhinorrhea or epistaxis. Mucous membranes moist. Oropharynx without tonsillar hypertrophy exudate or other lesions. NECK: Supple. No adenopathy or masses. CHEST: No respiratory distress. Clear to auscultation. No wheezes rales or rhonchi HEART: Regular rate and rhythm. No murmur heard. Normal peripheral pulses. ABDOMEN: Soft, nontender, nondistended, normal active bowel sounds. MSK: Normal range of motion. No edema. Able to move all 4 extremities through their full range of motion and without pain. No midline tenderness to the CT LS spine. SKIN: Warm, dry, no rash. NEURO: Alert and oriented x4. No focal deficits. Moves all 4 extremities spontaneously. Answers questions appropriately. PSYCH: Normal mood and affect. Course Vital Signs Vital signs: Vital Signs Temperature 97.8 F 11/07/24 12:05 Pulse Rate 72 11/07/24 12:05 Respiratory Rate 16 11/07/24 12:05 Blood Pressure 109/84 11/07/24 12:05 Pulse Oximetry 98 11/07/24 12:05 Temperature 97.5 F L 11/07/24 13:39 Pulse Rate 73 11/07/24 13:39 Respiratory Rate 15 11/07/24 13:39 Blood Pressure 127/64 11/07/24 13:39 Pulse Oximetry 98 11/07/24 13:39 Medical Decision Making [facility] Narrative Medical decision making narrative: This is a 73-year-old male who presents to the ED via EMS for complaint of a fall from the [facility] today. He does have history of dementia, however he is alert oriented x 4 on arrival. Patient is explaining to myself and nursing staff that he feels fine and does not wish to be evaluated. Apparently it is [facility] protocol for him to be evaluated after fall. He denies head injury or any extremity injury. He is not exhibiting signs of a stroke or trauma today. Moving all extremities without difficulty. Patient is declining any further metabolic or imaging workup at this time and he does appear to have capacity to make his own decisions. He is answering questions appropriately and exhibits understanding of the risks of leaving without any further workup. I do feel that his exam is benign overall and feel comfortable with discharging him back to [facility] today. Patient will be discharged in stable condition. Supportive measures discussed and return precautions given. Vital Signs Vital Signs: Vital Signs Temperature 97.8 F 11/07/24 12:05 Pulse Rate 72 11/07/24 12:05 Respiratory Rate 16 11/07/24 12:05 Blood Pressure 109/84 11/07/24 12:05 Pulse Oximetry 98 11/07/24 12:05 Temperature 97.5 F L 11/07/24 13:39 Pulse Rate 73 11/07/24 13:39 Respiratory Rate 15 11/07/24 13:39 Blood Pressure 127/64 11/07/24 13:39 Pulse Oximetry 98 11/07/24 13:39 Discharge Plan Discharge Clinical Impression: Fall Patient Disposition: [place] Long Term/Asst Living Condition: Stable Instructions: Antibiotic Form Additional Instructions: Examination is reassuring today. No overt signs of trauma. Please follow-up with PCP regarding falls. If you have any new or worsening symptoms please return to the ER for further evaluation. Patient Language: Portuguese Prescriptions: No Action amlodipine 5 mg Tablet 5 mg PO DAILY pramipexole 0.25 mg Tablet 0.25 mg PO BID hydrochlorothiazide 25 mg Tablet 25 mg PO DAILY meloxicam 15 mg Tablet 15 mg PO DAILY nortriptyline 25 mg Capsule 75 mg PO HS finasteride 5 mg Tablet 5 mg PO DAILY tamsulosin 0.4 mg Capsule 0.8 mg PO HS Rx Instructions: with evening meals gabapentin 400 mg Capsule 400 mg PO BID Bupenorphine Zalepon melatonin 10 mg capsule 10 mg PO HS PRN (Reason: sleep) Qty: 5 0RF nitrofurantoin monohyd/m-cryst [Macrobid] 100 mg capsule 100 mg PO Q12H 5 Days Qty: 10 0RF Rx Instructions: must administer with a meal/food sulfamethoxazole-trimethoprim [Bactrim DS] 800-160 mg tablet 1 tablet PO Q12H Qty: 14 0RF phenazopyridine [Pyridium] 100 mg tablet 100 mg PO DAILY PRN (Reason: pain) Qty: 7 0RF temazepam [Restoril] 7.5 mg capsule 7.5 mg PO HS Qty: 7 0RF tizanidine 2 mg tablet 2 mg PO TID PRN (Reason: muscle spasticity) Qty: 15 0RF Follow-up/Referrals: Osorio,Judy Queen APRN [Primary Care Provider] - Stand Alone Forms: Half-Way Discharge Time of Disposition: 13:18
--- OUTSIDE RECORDS SUMMARY | 2024-11-07 13:29 | XMS_ITS | Clinical Summary ---
Author Organization [facility] Address [address] [address] Care Team Providers Care Crepe Sole Scourer Name Role Phone Unavailable Primary Care Provider Unavailabl e Source Comments [facility],non-owned Affiliates and Associated Physician Practices is amultiple site organization consisting of ambulatory clinics and hospital sitesin [place], [place], [place] and [place]. This disclosure is being madepursuant to the Care Everywhere program and may not contain all information available regarding this patient. Last updated 18.[facility] Allergies No known active allergies Medications * Be aware that medications may not be up to date on this document. Alwaysverify current medications with the patient. Medication Sig Dispensed Refills Start Date End Date Status aliskiren-valsartan (VALTURNA) 300-320 MG tablet Take 1 Tab by mouth daily. Active hydrochlorothiazide (HYDRODIURIL) 25 MG tablet Take 25 mg by mouth daily. Active lisinopril (PRINIVIL; ZESTRIL) 20 MG tablet Take 20 mg by mouth daily. Active pramipexole (MIRAPEX) 0.25 MG tablet Take 0.25 mg by mouth 3 times daily. Active DULoxetine (CYMBALTA) 20 MG capsule Take 20 mg by mouth daily. Active diltiazem coated beads 24hr (CARTIA XT) 120 MG capsule Take 120 mg by mouth daily. Active tamsulosin CR 24hr (FLOMAX) 0.4 MG capsule Take 0.4 mg by mouth daily after breakfast. Take 30 minutes after a meal at the same time each day. Active Immunizations Name Administration Dates Next Due INFLUENZA VACCINE, HIGH-DOSE , QUADR. (FLUZONE HIGH-DOSE QUADRIVALENT; 65Y+), 0.7 ML (HD-IIV4) 05/17/2018 Family History Relation Name Status Comments Father Mother Social History Tobacco Use Types Packs/Day Years Used Date Smoking Tobacco: Never Assessed Alcohol Use Standard Drinks/Week Comments No 0 (1 standard drink = 0.6 oz pur e alcohol) Sex and Gender Information Value Date Recorded Sex Assigned at Not on file Gender Identity Not on file Sexual Orientation Not on file Last Filed Vital Signs Vital Sign Reading Time Taken Comments Blood Pressure 112/62 11/21/2010 11:47 AM CDT Pulse 76 11/21/2010 11:47 AM CDT Temperature - - Respiratory Rate 18 11/21/2010 11:47 AM CDT Oxygen Saturation 98% 11/21/2010 11:47 AM CDT Inhaled Oxygen Concentration - - Weight 115.7 kg (255 lb) 11/21/2010 11:47 AM CDT Height 188 cm (6' 2 ) 11/21/2010 11:47 AM CDT Body Mass Index 32.74 11/21/2010 11:47 AM CDT Plan of Treatment Health Maintenance Due Date Last Done Comments COLOGUARD (AGES 45-75) - COL ON CA SCREENING 1948 COLON MONITORING 1948 COLONOSCOPY - COLON CA SCREENING 1948 CT COLONOGRAPHY - COLON CA SCREENING 1948 Colorectal Cancer Screening 1948 FIT - COLON CA SCREENING 1948 FLEX SIG - COLON CA SCREENING 1948 LIPID TESTING 1948 MEDICARE AWV 12 MONTHS 1948 HEPATITIS C SCREENING 11/08/1966 DTAP/TDAP/TD VACCINES (1 - Tdap) 11/13/1967 PNEUMOCOCCAL VACCINE 50+ (1 of 1 - PCV) 1998 ZOSTER VACCINE (1 of 2) 1998 Respiratory Syncytial Virus (RSV) Vaccine Pt: or over 60 yrs (1 - 1-dose 75+ series) 11/13/2023 COVID-19 VACCINE ( - 2023-2 5 season) 2024 INFLUENZA VACCINE (#1) 2024 05/17/2018 DEPRESSION SCREENING 08/23/2024 HEPATITIS B VACCINE Aged Out No longe r eligible based on patient's age to complete this topic HIB VACCINE Aged Out No longer eligi ble based on patient's age to complete this topic HPV VACCINE Aged Out No longer eligi ble based on patient's age to complete this topic MENINGOCOCCAL (Group B) VACC INE SHARED DECISION-MAKING Aged Out No longer eligibl e based on patient's age to complete this topic MENINGOCOCCAL GROUPS A/C/Y/W VACCINE Aged Out No longer eligible b ased on patient's age to complete this topic
--- OUTSIDE RECORDS SUMMARY | 2024-11-07 13:29 | XMS_ITS | Clinical Summary ---
Author Organization [facility] D Address [address] [place] [address] Care Team Providers Care Credit Manager Name Role Phone Panda Rutledge MD Unavailable [phone] Livier Zafar NP Primary Care Provider [phone] Allergies Active Allergy Reactions Criticality Noted Date Comments No Known Allergies Other (See comments) Low 010 Reaction: Medications hydroCHLOROthia zide (HYDRODIURIL) 25 mg tabletIndicatio ns:hypertension Take 1 tablet (25 mg total) by mouth every morning Active gabapentin (NEURONTIN) 300 mg capsuleIndicati ons:Neuropathic Pain Take 400 mg by mouth nightly 12/02/2018 Active pramipexole (MIRAPEX) 0.25 mg tabletIndicatio ns:Restless Legs Syndrome 3 (three) times a day Active tamsulosin (FLOMAX) 0.4 mg extended release capsule Take 1 capsule (0.4 mg total) by mouth nightly Take two after evening meal 5 03/29/2019 Active amLODIPine (NORVASC) 5 mg tabletIndicatio ns:hypertension Take 1 tablet (5 mg total) by mouth every morning 2 02/25/2019 Active divalproex ER (DEPAKOTE ER) 500 mg 24 hr tabletIndicatio ns:Bipolar Disorder Take 1 tablet (500 mg total) by mouth 2 (two) times a day Active FLUoxetine (PROzac) 40 mg capsule Take 1 capsule (40 mg total) by mouth every morning 10/10/2020 Active QUEtiapine (SEROquel) 100 mg tablet Take 1 tablet (100 mg total) by mouth nightly sleeping 07/12/2020 Active cholecalciferol , vitD3,/vit K2 (VITAMIN D3-VITAMIN K2 ORAL) Take 1 tablet by mouth nightly Active ibuprofen (ADVIL ORAL) Take by mouth Act chelsea donepeziL (ARICEPT) 10 mg tabletIndicatio ns:Mild to Moderate Alzheimer's Type Dementia Take 1 tablet (10 mg total) by mouth nightly 90 tablet 3 05/14/2022 Active traZODone (DESYREL) 100 mg tablet 12/01/2022 Active traZODone (DESYREL) 50 mg tablet 12/01/2022 Active medroxyPROGESTE Mundo (PROVERA) 5 mg tablet 01/26/2023 Active ergocalciferol (VITAMIN D) 50,000 unit capsule 01/22/2023 Active diazePAM (VALIUM) 2 mg tablet 12/22/2022 Active Active Problems Problem Noted Date Diagnosed Date Primary osteoarthritis of right knee 12/30/2020 Overview (12/30/2020): Added automatically from request for surgery [id number] Agitation 04/30/2020 Aggression 04/30/2020 Alcohol abuse 04/30/2020 Drug abuse 04/30/2020 Acute bronchospasm 03/11/2020 SAIRA (acute kidney injury) 03/11/2020 Obsessive-compulsive disorder 07/27/2019 Polypharmacy 07/27/2019 Progressive dementia with uncertain etiology 12/2018 Assessment & Plan (02/10/2024 11:41 AM CDT): - AD or bvFTD (impaired executive function, socially inappropriate behavior-masturbating in public and in front of children, urinating in electrical sockets in an a cat litter box), Alzheimer dementia, NPH (urinary incontinence, cognitive problems, gait changes). History of alcohol and drug abuse. -MRI 3D from 2018- hippocampal volume not that diminished, severe global atrophy in all other areas of the brain (frontal/posterior). -FDG-PET- Diffuse hypometabolism of precuneus and posterior cingulate region can be seen in Alzheimer's disease, however there is also diffuse frontal, parietal and anterior temporal lobes hypometabolism in not typical distribution for Alzheimer's. May represent alternate/second underlying disease process. -Reviewed bMRI result with Dr. Kalin Ho, not likely NPH. -Currently in memory care facility Intermittent asthma without complication 019 Community acquired pneumonia 04/07/2018 Dyspnea on exertion 04/07/2018 Chronic nonalcoholic liver disease 05/25/2017 Basal cell carcinoma (BCC) of abdomen 05/04/2017 Myoclonus 03/15/2017 Asthma 03/15/2017 Carotid artery disease 04/22/2016 Overview (11/27/2016): Bilateral carotid artery disease Actinic keratosis 05/01/2015 History of nonmelanoma skin cancer 05/01/2015 Squamous cell carcinoma of skin of neck 01/04/20 14 Disorder of lung 03/06/2013 Seborrheic keratosis 01/25/2013 Infectious warts 01/25/2013 Hypertension 01/11/2013 Obesity 01/11/2013 Obstructive sleep apnea syndrome 01/11/2013 Folliculitis 08/11/2011 Skin neoplasm 08/11/2011 Tinea pedis 08/11/2011 Mild intermittent asthma 07/13/2011 Palpitations 01/05/2011 Osteoporosis 12/20/2010 Cough 10/19/2010 Encounter for preventive health examination 01/21 Other specified disorder of rectum and anus 03/2005 Sleep apnea 03/30/2005 Assessment & Plan (02/10/2024 11:38 AM CDT): Refuses PAP therapy Esophageal reflux 11/05/2004 Other and unspecified hyperlipidemia 11/05/2004 Resolved Problems Problem Noted Date Diagnosed Date Resolved Date Anxiety and depression 07/27/201902/09 Memory impairment 07/27/2019 02/10/2024 Sleep difficulties 07/27/2019 Fatigue 04/07/2018 02/10/2024 Weight gain 05/25/2017 02/10/2024 Anxiety 03/15/2017 02/10/2024 Recurrent major depression 03/15/2017 0 02/10/2024 Insomnia, unspecified 03/30/20052023 Depressive disorder, not elsewhere classified 11/06/19 05 02/10/2024 Immunizations Immunization Administration Dates Next Due Influenza, Trivalent, Adjuvanted, Intramuscular 05/18/2019 Influenza, Trivalent, High D ose, Split, Preservative Free, Intramuscular 05/17/2018 Influenza, Trivalent, Preservative Free, Intramu scular 06/16/2010 Influenza, Unspecified 05/17/2018 Pneumococcal Polysaccharide PPV23 06/16/2010 Surgical History Surgery Date Site/Laterality Comments KNEE ARTHROSCOPY FEMUR SURGERY COLONOSCOPY Medical History Medical History Date Comments Personal history of malignan t neoplasm of other organs and systems History of squamous cell car cinoma - (Added by TW Conv) Personal history of other ma lignant neoplasm of skin History of nonmelanoma skin cancer - (Added by TW Conv) Personal history of diseases of skin or subcutaneous tissue History of actinic keratosis - (Added by TW Conv) Addiction to drug (HCC) Anxiety Arthritis Asthma Depression Hypertension Obesity Osteoporosis Sleep apnea Family History Medical History Relation Name Comments Alcohol abuse Father Hypertension Father Mental illness Father Stroke Father Diabetes Mother Heart disease Mother Hypertension Mother Mental illness Mother Anesthesia problems Neg Hx Relation Name Status Comments Father Mother Social History Tobacco Use Types Packs/Day Years Used Date Smoking Tobacco: Former Cigarettes Q uit: 1988 Smokeless Tobacco: Never Tobacco Cessation:Counseling Given: Not Answered Alcohol Use Standard Drinks/Week Comments Not Currently 0 (1 standard drink = 0.6 oz pur e alcohol) RECOVERING ALCOHOLIC AUDIT-C Answer Date Recorded Q1: How often do you have a drink containing alc ohol? Never 01/21/2021 Average Number of Drinks Not on file 021 Q3: How often do you have si x or more drinks on one occasion? 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 DRIVER Sexual Orientation Straight 12/21/2020 8: 07 AM CDT Obstetrics History Last Filed Vital Signs Vital Sign Reading Time Taken Comments Blood Pressure 152/86 01/20/2023 12:28 PM CDT Pulse 81 01/20/2023 12:28 PM CDT Temperature 37.1 C (98.7 F) 01/20/2023 12:28 PM CDT Respiratory Rate 18 02/05/2021 7:25 AM CDT Oxygen Saturation 98% 01/20/2023 12:28 PM CDT Inhaled Oxygen Concentration - - Weight 134 kg (295 lb 8 oz) 01/20/2023 12:28 PM CDT Height 185.4 cm (6' 0.99 ) 01/20/2023 12:28 PM C DT Body Mass Index 39 01/20/2023 12:28 PM CDT Plan of Treatment Health Maintenance Due Date Last Done Comments Colon Cancer Screening-Colonoscopy 1950 Depression Screening 1950 Hepatitis C Screening 1950 DTaP/Tdap/Td Vaccine (1 - Tdap) 11/13/1959 Hepatitis B Screening 1966 Zoster Vaccine (1 of 2) 1998 Pneumococcal vaccine 65+ (2 of 2 - PCV) 06/16/2011 06/16/2010 Well Visit 65+ 2013 Fall Risk Assessment 02/05/2022 02/05/2021 Influenza Vaccine (#1) 2024 9, 05/17/2018, 05/17/2018, Additional history exists Abdominal Aortic Aneurysm (A AA) Screen Completed 09/10/2019, 04/19/2017 Medical Devices Implanted Type Area Child Development Specialist Device Identifier Shelf Expiration Date Model / Serial / Lot [employer] [id number] Attune 5mm Cruciate Retaining Rotate Platform Knee 7 Insert - [id number] Implanted:Qty: 1 on 02/04/2021 by Guillermo Garrison MD at [facility] Right: Knee [employer] [id number] 09/22/2025 [id number] / / [id number] [employer] [id number] Attune Cementless Rotate Platform Knee 8 Baseplate Tibial - [id number] Implanted:Qty: 1 on 02/04/2021 by Guillermo Garrison MD at [facility] Right: Knee [employer] [id number] 12/20/2030 [id number] / / [id number] [employer] [id number] Attune Cruciate Retain Cementless Knee Right 7 Component Femoral - [id number] Implanted:Qty: 1 on 02/04/2021 by Guillermo Garrison MD at [facility] Right: Knee [employer] [id number] 09/22/2030 [id number] / / [id number] Procedures Procedure Name Priority Date/Time Associated Diagnosis Comments AORTIC SONOGRAPHY Routine 04/19/2017 1:4 9 PM CDT from Last 3 Months or Most Recently Relevant to Health Maintenance Results * AORTIC SONOGRAPHY (04/19/2017 1:49 PM CDT) Anatomical Region Laterality Modality N/A Ultrasound 04/19/2017 1:49 PM CDT Narrative 04/19/2017 1:49 PM CDT AORTA SONOGRAM CLINICAL HISTORY: Coronary artery disease. Carotid artery stenosis. Evaluate for possible abdominal aortic aneurysm. COMPARISON: None available. FINDINGS: There is abdominal aortic atherosclerosis. The proximal abdominal aorta measures 2.9 x 2.9 cm. The mid abdominal aorta measures 2.2 x 2.2 cm. The distal abdominal aorta measures 1.9 x 1.8 cm. There is mild ectasia of the bilateral common iliac arteries. The right common iliac artery measures 1.7 x 1.7 cm. The left common iliac artery measures 1.7 x 1.7 cm. No periaortic mass or fluid collection is identified. IMPRESSION: Abdominal aortic atherosclerosis without evidence of aneurysm. Electronically signed by: Matilde Reeder M.D. Radiologist: MATILDE REEDER M.D. Attending: ANAND BOX Requesting: ANAND BOX Requesting Requesting ID: [id number] Attending Attending ID: [id number] Completed Time: 04/19/2017 08:49 AM Dictated Time: N/A Transcribed Time: 04/19/2017 11:13 AM Signed by: MATILDE REEDER M.D. on 04/19/2017 11:13 AM Report To 1 ID: Report To 1 Name: , Report To 1 FAX: Report To 2 ID: Report To 2 Name: , Report To 2 FAX: Report To 3 ID: Report To 3 Name: , Report To 3 FAX: NextGen Order #: Procedure Note Miscellaneous, Not In File / Provider, MD Jessica - 04/19/2017 AORTA SONOGRAM CLINICAL HISTORY: Coronary artery disease. Carotid artery stenosis. Evaluate for possible abdominal aortic aneurysm. COMPARISON: None available. FINDINGS: There is abdominal aortic atherosclerosis. The proximal abdominal aorta measures 2.9 x 2.9 cm. The mid abdominal aorta measures 2.2 x 2.2 cm. The distal abdominal aorta measures 1.9 x 1.8 cm. There is mild ectasia of the bilateral common iliac arteries. The right common iliac artery measures 1.7 x 1.7 cm. The left common iliac artery measures 1.7 x 1.7 cm. No periaortic mass or fluid collection is identified. IMPRESSION: Abdominal aortic atherosclerosis without evidence of aneurysm. Electronically signed by: Matilde Reeder M.D. Radiologist: MATILDE REEDER M.D. Attending: ANAND BOX Requesting: ANAND BOX Requesting Requesting ID: [id number] Attending Attending ID: [id number] Completed Time: 04/19/2017 08:49 AM Dictated Time: N/A Transcribed Time: 04/19/2017 11:13 AM Signed by: MATILDE REEDER M.D. on 04/19/2017 11:13 AM Report To 1 ID: Report To 1 Name: , Report To 1 FAX: Report To 2 ID: Report To 2 Name: , Report To 2 FAX: Report To 3 ID: Report To 3 Name: , Report To 3 FAX: NextGen Order #: Anand Box MD [facility] PROCEDURES Final Res ult from Last 3 Months or Most Recently Relevant to Health Maintenance Insurance [facility] A[employer] Advance Directives For more information, please contact: [phone] Documents on File Type Date Recorded Patient Civil Laboratory Technician Expl anation ADVANCE DIRECTIVE 02/04/2021 7:06 AM * Full Code (Latest Code Status on File) Date Activated Date Inactivated Comments 02/04/2021 12:20 PM 02/05/2021 3:14 PM Care Teams Credit Manager Relationship Specialty Start Date End Date Livier Zafar NP [address] [place] [address] PCP - General Nurse Practitioner 12/24/22 Panda Rutledge MD [address] [address] Referring Physician Psychiatry 04/30/20
--- OUTSIDE RECORDS SUMMARY | 2024-11-07 13:29 | XMS_ITS | Encounter Summary ---
Author Organization [facility] Address 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
--- OUTSIDE RECORDS SUMMARY | 2024-11-07 13:29 | XMS_ITS | Encounter Summary ---
Author Organization [facility] Address [address] [place] [address] Care Team Providers Care Assistant Professor Of Biochemistry Name Role Phone BobKalin pace Aneesh Primary Care Provider Encounter Details Date Type Department Care Team (Latest Contact Info) Description 11/05/2004 Outpatient Historical [facility], [address] Solomon Hines MD [address] [place] [address] BENIGN HYPERTENSION (Primary Dx) Social History Tobacco Use Types Packs/Day Years Used Date Smoking Tobacco: Never Assessed Sex and Gender Information Value Date Recorded Sex Assigned at Not on file Legal Sex Male 2:59 AM APPLIANCE FIXER Gender Identity Not on file Sexual Orientation Not on file documented as of this encounter Plan of Treatment Not on file documented as of this encounter Procedures Procedure Name Priority Date/Time Associated Diagnosis Comments BASIC METABOLIC PANEL Routine 11/05/2004 10:15 AM APPLIANCE FIXER documented in this encounter Results * BASIC METABOLIC PANEL (11/05/2004 10:15 AM APPLIANCE FIXER) GLUCOSE 100 65 - 109 mg/dL INTERFACE SYSTEM CREATININE 0.9 0.5 - 1.3 mg/dL INTERFACE SYSTEM CALCIUM 8.9 8.6 - 10.2 mg/dL INTERFACE SYSTEM BUN 11 6 - 20 mg/dL INTERFACE SYSTEM SODIUM 139 135 - 145 mmol/L INTERFACE SYSTEM POTASSIUM 4.6 3.5 - 4.9 mmol/L INTERFACE SYSTEM CHLORIDE 102 96 - 108 mmol/L INTERFACE SYSTEM CO2 27 22 - 30 mmol/L INTERFACE SYSTEM 11/05/2004 10:1 5 AM APPLIANCE FIXER us Solomon Hines MD CHEMISTRY ORDERABLES Final Res ult INTERFACE SYSTEM Refer to clinic/hospital department documented in this encounter Visit Diagnoses Diagnosis Essential hypertension, benign- Primary documented in this encounter Care Teams Assistant Professor Of Biochemistry Relationship Specialty Start Date End Date Kalin Rojas DO PCP - General 08/08/15 documented as of this encounter
--- OUTSIDE RECORDS SUMMARY | 2024-11-07 13:29 | XMS_ITS | Encounter Summary ---
Author Organization [facility] Address 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
--- OUTSIDE RECORDS SUMMARY | 2024-11-07 13:29 | XMS_ITS | Encounter Summary ---
Author Organization [facility] Address [address] [place] [address] Care Team Providers Care Field Crop Grower Name Role Phone Bob Kalin Aneesh Primary Care Provider Encounter Details Date Type Department Care Team (Late st Contact Info) Description 09/14/2005 Orders Only [facility] [address] [place] [address] Solomon Hines MD [address] [place] [address] Social History Tobacco Use Types Packs/Day Years Used Date Smoking Tobacco: Never Assessed Sex and Gender Information Value Date Recorded Sex Assigned at Not on file Legal Sex Male 2:59 AM PSYCHIATRIC ORDERLY Gender Identity Not on file Sexual Orientation Not on file documented as of this encounter Progress Notes * Solomon Hines MD - 05/31/2008 12:38 PM CDT TIME:09:06 am PATIENT`S HOME PHONE: PATIENT`S WORK PHONE: PATIENT`S [facility]URANCE[facility] [employer] WHO TOOK THE CALL: Patrick Garrett S GENERAL INFORMATION LAST VISIT: 03/30/05 PCP: pedro luis. WHO CALLED: Pharmacy called. PHARMACY NUMBER: [phone] SECTION 1: REQUESTED ACTION hoang 09/14/05 at 09:07 am: MEDICATION REQUEST: Patient requests a refill. MEDICATIONS: LIPITOR ORAL TABLET 10 MG, 1 Every Day, 30 Dispensed, 2 Fills, status: CONTINUED, 06/29/2005. l.f. 09/07/05 DOCTOR`S RESPONSE: anne marie 09/14/05 at 11:17 am Refill now with 2 additional refills. FINAL ACTION: hoang 09/14/05 at 02:38 pm Called pharmacy at 09/14/05 at 02:38 pm. called in rx refill listed above with 2 additional refills/ tc Electronically Signed by: Patrick Garrett on Wednesday, September 14, 2005 documented in this encounter Plan of Treatment Not on file documented as of this encounter Visit Diagnoses Not on filedocumented in this encounter Care Teams Field Crop Grower Relationship Specialty Start Date End Date Kalin Rojas DO PCP - General 08/08/15 documented as of this encounter
--- OUTSIDE RECORDS SUMMARY | 2024-11-07 13:29 | XMS_ITS | Encounter Summary ---
Author Organization [facility] Address 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
--- OUTSIDE RECORDS SUMMARY | 2024-11-07 13:29 | XMS_ITS | Data Portability ---
Author Organization [facility] Address [address] [place] [id number] Care Team Providers Care Produce Department Manager Name Role Phone SOLE PULLIAM OTHER HENRI EMERSON OTHER MEEK PEÑALOZA Document Review Attorney LESLI ARCE Internal Medicine Unavailable Assessment Encounter Date Assessment Date Assessment LastModified by Organization Details LastModified Time 03/23/2016 03/23/2016 1. Htn- on 2 drugs- benicar and amlodipine 2. Depression- on 3 drugs. Does meditate and sees Dr. Haleigh Rutledge. 3. 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 He therefore needs to keep his vitamin D levels between 60 and 70. He is able to achieve this using 20,000 international units of vitamin D3 daily. His calcium levels have been normal. His bone density now shows osteopenia. Dr. Delphine Pulliam, his osteoporosis Dr., has warned him that strontium is associated with a high cancer risk. I let him know, that the strontium used in the [place] is not the same as strontium ranelate. It is the ranelic acid in strontium that is associated with cancer and acid base problems. I have told him to stay off the strontium for now and will await a bone density next year before we consider resuming it or continuing without it. I will see him back in 1 year. Not available 03/23/2016 22:25:40 03/15/2017 03/15/2017 Biggest concern today is : 1. Weight gain 2. Depression- drug resistant and had 2 rounds of TCM. He does meditate 5 times per week. He is Trintellix, Mirtazipine, 45 and lorazepam 1 mg. he is very sad and distressed with the currrent political vera that be. 3. Osteoporosis on d3 and calcium 4. Hypertension on amlodipine, and benicar 5. sleep apnea- on cpap 6. Myoclonus on pramipexole. 7. Asthma- Not available 03/15/2017 10:49:13 05/25/2017 05/25/2017 1. Weight gain- lost 50 pounds last year and gained 40 pounds back and in the last year Fatty Liver was diagnosed. has a hard time loosing weight. today 2. Depression- drug resistant and had 2 rounds of TCM. He does meditate 5 times per week. He is Trintellix, Mirtazipine, 45 and lorazepam 1 mg. he is very sad and distressed with the currrent political vera that be. 3. Osteoporosis on d3 - 10,000 IU and calcium. he is getting prolia - and has recd one shot by dr. pulliam i will check his vitamin d level that was done last week at [facility] 4. Hypertension on amlodipine, and benicar 5. sleep apnea- on cpap 6. Myoclonus on pramipexole. 7. Asthma-stable 8. ROsacea- face and nose 8. basal cell ca removed from R breast region last week Not available 05/25/2017 11:21:35 08/18/2017 08/18/2017 1. Weight gain- lost 50 pounds last year and gained 40 pounds back and in the last year Fatty Liver was diagnosed. has a hard time loosing weight. today 2. Depression- drug resistant and had 2 rounds of TCM. He does meditate 5 times per week. He is Trintellix, Mirtazipine, 45 and lorazepam 1 mg. he is very sad and distressed with the currrent political vera that be. 3. Osteoporosis on d3 - 10,000 IU and calcium. he is getting prolia - and has recd one shot by dr. pulliam i will check his vitamin d level that was done last week at [facility] 4. Hypertension on amlodipine, and benicar 5. sleep apnea- on cpap 6. Myoclonus on pramipexole. 7. Asthma-stable 8. ROsacea- face and nose 8. basal cell ca removed from R breast region last week Not available 08/18/2017 18:08:05 05/12/2018 05/12/2018 Edi is a 67 yowm who is here for a follow up. 1. Depression is his biggest issue- he is on sertraline 200 mg, trazadone 200 and buprenorphine 8 mg 1.5 tabs . he is also on lorazepam He has 2 daughters 40 and 42 in [facility]. they have a beautiful relationship. His and he did great job raising their children. he does TM today, i taught him RAJA yoga and also changes his supplements 2. Osteoporosis on 50K vitamin D , prolia and 500 mg calcium 3 wt gain 4.myoclonus 5. FACUNDO on cpap Not available 05/12/2018 16:10:14 Plan of Treatment Reminders Order Date Submit Date Provider Last Modified By Organization Details Last Modified Time Details Appointments None recorded. Lab None recorded. Referral None recorded. Procedures None recorded. Surgeries None recorded. Imaging None recorded. Medication Orders pramipexol e 0.25 mg tablet 2016 017 INTERFACE [facility] #[id number], [address], [place], [id number], 7 18:38:52 trazodone 100 mg tablet 2016 017 INTERFACE [facility] #[id number], [address], [place], [id number], 7 18:38:43 Benicar HCT 40 mg-25 mg tablet 2016 017 INTERFACE [facility] #[id number], [address], [place], [id number], 7 18:38:52 amlodipine 5 mg tablet 2016 017 [id number], [address], [place], [id number], 7 18:38:43 Patient TargetsNo targets recorded. Patient Instructions Encounter Date Encounter Id Patient Instructions Last Modified By Organization Details Last Modified Time 03/23/2016 [id number] 1. Continue Maria C min D- 20,000, Jeffery Mag 2 per day. Ok to leave Off strontium. i do not think that strontium citrate causes cancer. 2. For anemia stay on B complex one daily. DO not take IRon . Okay to take B12. Not available 03/23/2016 22:25:40 03/15/2017 [id number] 1. Please have- dR. Box order a MR- Angiogram to be sure that you do have good collateral circulation in your brain. this is because you have memory loss. 2. Do continue with Vitamin D 10,000 per day and also calcium 2 per day. 3. talk to Membership to change to Medical Member if you wish me to be your PCP. Not available 03/15/2017 11:00:30 TOTAL TIME: I spent greater than 100% of 30 minutes of time with the patient, face to face, counselling on diet, lifestyle modification and a plan of action to help eliminate the underlying conditions leading to her illness as outlined under ' patient instructions' and assessment. Not available 03/15/2017 10:49:02 05/25/2017 [id number] 1. Please get me vitamin D and other labs from [facility]. 2. You need to keep your vitamin D level between 65 to 80. THis is because you are a homozygote for the vitamin D receptor, working less efficiently. 3. Please get back to daily meditation - try and do this at 6 am for half hour and then go back to sleep if you want. Repeat meditation at 5-7 pm in the evening 4. We have reviewed the cardiometabolic plan. Not available 05/25/2017 11:16:38 TOTAL TIME: I spent greater than 100% of 30 minutes of time with the patient, face to face, counselling on diet, lifestyle modification and a plan of action to help eliminate the underlying conditions leading to her illness as outlined under ' patient instructions' and assessment. Not available 05/25/2017 11:16:46 08/18/2017 [id number] 1. I will be you r primary. Learn to use the PORTAL to communicate with me while you are in [place], [place] 2. Read and practice the meditation in YOU ARE THE PLACEBO- by SRINIVASAN LAGUNA 3. All rx called in 4. YOur fatty liver is due to insulin resistance. Not available 08/18/2017 18:41:27 TOTAL TIME: I spent greater than 100% of 30 minutes of time with the patient, face to face, counselling on diet, lifestyle modification and a plan of action to help eliminate the underlying conditions leading to her illness as outlined under ' patient instructions' and assessment. Not available 08/18/2017 18:41:34 05/12/2018 [id number] 1. DANICA yoga is also known as the tomasz of meditation. sit in a comfortable chair first thing in the am. start belly breathing- ie breathe in thro your nose and let your belly rise, then open your mouth and gently blow the air out. do this a few times and start relaxing the whole body Then, imagine that there is divine light in the region of your heart. SET YOUR GOAL to connect your heart to the divinity that you emanated from simply observe your thoughts try and sit in this way for 30 minutes 2. TRY the following supplements: B- active- this is a methylated B vitamin 5 mthf 5 mg one daily- methylated folic acid that helps your brain min isak two daily- minerals - taake at night vitamin D/K=50,000 iu per week jeffery mag 2 daily at bedtime fish oil as mono pure one daily continue turkey rhubarb for constipation Not available 05/12/2018 16:03:53 TOTAL TIME: I spent greater than 100% of 30 minutes of time with the patient, face to face during my HPI, ROS, and my exam of her. I also counselled on diet, lifestyle modification and a plan of action to help eliminate the underlying conditions leading to her illness as outlined under ' patient instructions' and assessment. Not available 05/12/2018 15:58:39 Reason for Referral None Reported. Results Created Date Observation Date Name Description Value Unit Range Abnormal Flag Note LastModifiedBy Organization Detail LastModifiedTime Result Notes None recorded. Problems Name Problem SNOMED Code Status Onset Date Resolution Date Notes Provider Name and Address Organization Details Recorded Time Asthma 687929227 Active 2016 Lesli adair [facility] 7 10:21:15 Sleep apnea 94312168 Active 2016 on cpap last 20 years - 11 cms water pressure. Lesli Sumanth [place], [place] - [facility] 7 10:23:18 Essential hypertensi on 61079828 Active 2016 on amlodipine , benicar/hc t Lesli [place] [facility] 7 10:24:16 Myoclonus 65240410 Active 2016 on pramipexol e Lesli Sum[place] [facility] 7 10:28:54 Recurrent major depression 64927683 Active 2016 Lesli [place] [facility] 7 10:49:35 Anxiety 24963203 Active 2016 Lseli [place] [facility] 7 10:49:45 Chronic nonalcohol ic liver disease 06515273 Active 2016 Lesli [place] [facility] 7 11:19:04 Weight gain 1354857 Active 2016 Lesli [place] [facility] 7 11:21:47 Insomnia 592120011 Active 2016 Lesli [place] [facility] 7 18:34:02 Osteoporos is 28117164 Active Lesli [place] [facility] 6 22:25:40 Problem Notes None recorded. Procedures Surgical History Date Name Laterality Status Provider Name and Address Organization Details Recorded Time 08/23/19 12 Cardiac Catheterization completed Mirthaeliezer Saunders [place] [facility] 04/24/2016 15:33:31 Dental Surgery completed Mirtha Saunders [place] [facility] 04/24/2016 15:31:48 Meniscal trnspl knee w/scpe completed Mirthaeliezer Saunders [place] [facility] 04/24/2016 15:32:13 Colonoscopy completed Mirthaeliezer Saunders [place] [facility] 04/24/2016 15:32:58 Echocardiogram completed Mirtha WOOTEN [facility] 04/24/2016 15:33:06 EKG completed Mirthacarlos Hernandez [facility] 04/24/2016 15:33:19 Imaging Results None recorded. Procedure Notes None recorded. Medical Equipment None Reported. Allergies No known drug allergies Medications Name Sig Start Date Stop Date Status Note LastModified by Organization Details LastModified Time amoxicillin 500 mg capsule 05/12 completed Not Available Not Available Not Available donepezil 5 mg tablet active Not Available Not Available No t Available azithromycin 250 mg tablet 05/12 completed Not Available Not Available Not Available IBU 800 mg tablet 05/12 completed Not Available Not Available Not Available doxepin 25 mg capsule active Not Available Not Available N ot Available prednisone 20 mg tablet 05/12 completed Not Available Not Available Not Available gabapentin 400 mg capsule active Not Available Not Available Not Available sertraline 100 mg tablet 2 at night active Not Available Not Available No t Available penicillin V potassium 500 mg tablet 05/25 completed Not Available Not Available Not Available amlodipine 5 mg tablet 1 tablet daily at night active Not Available Not Available No t Available Tamiflu 75 mg capsule 03/23 completed Not Available Not Available Not Available amoxicillin 500 mg tablet 05/25 completed Not Available Not Available Not Available lorazepam 0.5 mg tablet active Not Available Not Available Not Available trazodone 100 mg tablet TAKE 2 TABLETS BY MOUTH EVERY EVENING active Not Available Not Available No t Available cephalexin 500 mg capsule active Not Available Not Available Not Available buspirone 10 mg tablet 05/25 completed Not Available Not Available Not Available pramipexole 0.25 mg tablet TAKE 1 TABLET BY MOUTH DAILY AT BEDTIME active Not Available Not Available No t Available gabapentin 300 mg capsule active Not Available Not Available Not Available mirtazapine 45 mg tablet 1 tablet at bedtime active Not Available Not Available No t Available hydrochlorot hiazide 25 mg tablet active Not Available Not Available No t Available mupirocin 2 % topical ointment active Not Available Not Available Not Available lorazepam 1 mg tablet 1 tablet as needed active Not Available Not Available No t Available cefuroxime axetil 500 mg tablet 05/12 completed Not Available Not Available Not Available buprenorphin e HCl 2 mg sublingual tablet active Not Available Not Available Not Available buprenorphin e HCl 8 mg sublingual tablet 1 1/2 tablet daily under tongue active Not Available Not Available No t Available olmesartan 40 mg-hydrochlo rothiazide 25 mg tablet 1 tablet in the am active Not Available Not Available No t Available ProAir HFA 90 mcg/actuatio n aerosol inhaler as needed 05/12 completed Not Available Not Available Not Available Brintellix 20 mg tablet 03/23 completed Not Available Not Available Not Available Trintellix 10 mg tablet 3 tablets daily 05/12 completed Not Available Not Available Not Available Vitals Date Recorded Body height Body mass index (BMI) Body weight Body temperature Heart rate Oxygen saturation Oxygen saturation in Arterial blood by Pulse oximetry Systolic blood pressure Diastolic blood pressure Provider Name and Address Organization Details Last Updated DateTime 7 185.42 cm 37.3 kg/m2 421128. 2 g 97.7 [degF] 96 /min 94 % 94 % 163 mm[Hg] 78 mm[Hg] Breanne Melendez [facility] 7 10:13:46 Date Recorded Body height Body mass index (BMI) Body weight Body temperature Heart rate Oxygen saturation Oxygen saturation in Arterial blood by Pulse oximetry Systolic blood pressure Diastolic blood pressure Provider Name and Address Organization Details Last Updated DateTime 7 185.42 cm 36 kg/m2 188285. 44 g 98 [degF] 82 /min 95 % 95 % 156 mm[Hg] 79 mm[Hg] Breanne Melendez [facility] 7 17:40:07 Date Recorded Body height Body mass index (BMI) Body weight Body temperature Heart rate Oxygen saturation Oxygen saturation in Arterial blood by Pulse oximetry Systolic blood pressure Diastolic blood pressure Provider Name and Address Organization Details Last Updated DateTime 8 185.42 cm 35.8 kg/m2 356141. 05 g 98.2 [degF] 85 /min 94 % 94 % 99 mm[Hg] 68 mm[Hg] Breanne [facility] 8 09:22:21 Date Recorded Body temperature Body weight Body height Body mass index (BMI) Heart rate Oxygen saturation Oxygen saturation in Arterial blood by Pulse oximetry Systolic blood pressure Diastolic blood pressure Provider Name and Address Organization Details Last Updated DateTime 6 98.3 [degF] 920494. 552577 g 185.42 cm 32.9 kg/m2 98 /min 94 % 94 % 131 mm[Hg] 75 mm[Hg] Breanne Melendez [facility] 6 14:40:58 Date Recorded Body height Body mass index (BMI) Body weight Body temperature Heart rate Oxygen saturation Oxygen saturation in Arterial blood by Pulse oximetry Systolic blood pressure Diastolic blood pressure Provider Name and Address Organization Details Last Updated DateTime 7 185.42 cm 36.6 kg/m2 041488. 8 g 97.9 [degF] 95 /min 96 % 96 % 154 mm[Hg] 78 mm[Hg] Breanne Melendez [facility] 7 09:44:10 Social History Question Answer Notes LastModified by Organization Details LastModified Time Tobacco Smoking Status Former [facility] quit 1988 Not Available [facility] 06/25/2020 03:40:51 What Is Your Level Of Alcohol Consumption? None [id number] Information not available 06/25/2020 Animal Exposure? No [email or web address] Informat ion not available 04/24/2016 Education Post Graduate [email or web address] Information not available 04/24/2016 Have There Been Any Changes To Your Family Or Social Situation? No [id number] Information not available 06/25/2020 Hobbies/Activiti es Crossword Puzzles [email or web address] Information not available 04/24/2016 International Travel [place], [place], [place], [place], [place], [place], [place] [email or web address] Information not available 04/24/2016 Where Do You Live? 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 not available 04/24/2016 Living Adjustments Due To Health Lost Weight, Supps To Improve Health, Cut Grass Bie For Exercise [email or web address] Information not available 04/24/2016 Major Loses No [email or web address] Information not available 04/24/2016 Taoism Not At All Information not available 04/24/2016 Spirituality Extremely [email or web address] Information not available 04/24/2016 Feel Safe Growing Up No [email or web address] Information not available 04/24/2016 Abusive Relationship In Past No [email or web address] Information not available 04/24/2016 Alcoholism Or Substance Abuse In Childhood Home Yes [email or web address] Information not available 04/24/2016 Alcoholism Or Substance Abuse In Current Home Or Relationship No Information not available 04/24/2016 Feel Safe In Current Home Yes Information not available 04/24/2016 Feel Safe, Respected, And Valued In Current Relationship Yes [email or web address] Information not available 04/24/2016 Violent Or Trauma Experiences No [email or web address] Information not available 04/24/2016 Safety Discussion In Private No [email or web address] Information not available 04/24/2016 Alcohol Intake Quantity No Longer Drink Alcohol [email or web address] Information not available 04/24/2016 Do You Think You Have A Problem With Alcohol Yes Rehab 2010 Previously Information not available 04/24/2016 Does Anyone In Your Life Think You Have A Problem With Alcohol Yes Information not available 04/24/2016 Current Employment Status Retired [email or web address] Information not available 04/24/2016 Stress Level (10 Most, 1 Least) 7 Information not available 04/24/2016 Unhealthy Stress Is Present Yes [email or web address] Information not available 04/24/2016 Ways To Release Stress Tries Meditation Information not available 04/24/2016 Sources Of Stress Are Election [email or web address] Information not available 04/24/2016 Exposures Cigarette Smoke, Heights And Depths [email or web address] Information not available 04/24/2016 What Was The Date Of Your Most Recent Tobacco Screening? 05/12/2018 [id number] Information not available 06/25/2020 Do You Have Any Siblings? 1 Sister [id number] Information not available 06/25/2020 Are There Any Smokers In Your House? No [email or web address] Information not available 04/24/2016 Sex: Unknown Functional Status None recorded. Mental Status None recorded. Family History Relationship Description Onset Age of this Age Resolved Age Notes LastModified by Organization Details LastModified Time Mother Anxiety deceas ed [email or web address] Not available 04/24/2016 15:19:42 Mother Depressive disorder Not available 2015 15:20:22 Mother Diabetes mellitus Not available 2015 15:20:39 Mother Cirrhosis of liver Not available 2015 15:21:15 Mother Obesity Not available 04/24/2016 15:21:29 Father Anxiety deceas ed Not available 04/24/2016 15:19:42 Father Depressive disorder Not available 2015 15:20:22 Father Hypertensive disorder Not available 2015 15:20:54 Father Cirrhosis of liver Not available 2015 15:21:15 Father Cerebrovascu lar accident Not available 09/2015 15:21:53 Father Substance abuse Not available 2015 15:22:10 Maternal Grandmother Depressive disorder Not available 2015 15:20:22 Medical History Condition Response Coronary Artery Disease N Other Y Gout N High Blood Pressure Y Kidney Stones N Hyperthyroidism N MRSA N INJURIES N Chronic Sinusitis N Gerd/Reflux Y Braces N Congenital Heart Disease N Depression Y Pneumonia N BLOOD/INFLAMMATORY/IMMUNE N Complex Regional Pain Syndrome N Headache/Migraine N Sinusitis N RESPIRATORY N Gall stones N Bulimia N Obesity Y Arthritis N Polycystic Ovarian Syndrome N Infertility N Congenital Disorder N Stroke N Crohn's Disease N Neck Injury N HIV/AIDS N CARDIOVASCULAR N Skin Cancer Y Mood disorder N Fibromyalgia N Irritable Bowel Syndrome N Kidney Disease N Concussion/Traumatic Brain Injury Y Inflammatory bowel disease N Chronic Fatigue Syndrome N Anxiety Y Hospitalizations N Irregular HR/Arrhythmia N Heart Attack/MD N Herpes Y GASTROINTESTINAL N Acne N PTSD N Celiac Disease N Constipation N Bleeding Disorder N Hepatitis/Liver Disease N Broken bone Y Cerebral Palsy N Tuberculosis N METABOLIC/ENDOCRINE N Asthma Y Dental Visits 2x/year N Silver/Mercury Amalgum fillings Y Chronic Ear Infections N Bipolar disorder N Oral Steroids as Adult N MENTAL HEALTH N URINARY/REPRODUCTIVE N Anorexia N Hypothyroidism N Developmental delay N Pacemaker N Panic attacks Y DERMATOLOGIC N Gastic or peptic ulcers N Food intolerance N Yeast infections N Prostate problem N Mononucleosis N Chronic pain N Hypoglycemia N Severe infections N ORAL HEALTH N Metabolic syndrome N Back Injury N High Cholesterol N Antibiotic Use as Teen N CANCER N Type 1 Diabetes N Autism/Autism Spectrum Disorder (ASD) N Autoimmune Disease N Allergies/Hayfever N Recurrent Fractures N Head Injury Y Osteoarthritis N NEUROLOGIC N Rheumatic fever N Parkinson's Disease N Oral Steroids as Teen N ADD/ADHD N Anemia Y Multiple Sclerosis N Back Pain N Type 2 Diabetes N Bronchitis/Emphysema N Dentures Y Retainer N Cardiomyopathy N Seizures/Epilepsy N Congestive Heart Failure (CHF) N Valvular Heart Disease N Cancer and treatments N Eczema N MUSCULOSKELETAL/PAIN N Dementia N Urinary tract infections N Ulcerative colitis N Lupus N Learning Disorder/Difficulty N Connective Tissue Disorder N Blood Clotting Disorder N Antibiotic Use as Adult N Psoriasis N Sleep Apnea Y Oral Steroids as Infant/Child N Antibiotic Use in Infancy/Childhood Y Osteoporosis Y Past Encounters Encounter ID Performer Location Encounter Start Date Encounter Closed Date Diagnosis/Indication Diagnosis SNOMED-CT Code Diagnosis ICD10 Code Diagnosis Note [id number] [address] 4 03/23/2016 13:47:41 03/23/2016 16:09:08 Osteoporosis 98023978 M81.[id number] [address] 03/15/2017 09:26:18 03/15/2017 12:27:21 Osteoporosis 85162595 M81.0 Essential hypertension 78485195 I10 Recurrent major depression 39721232 F33.9 Anxiety 28548410 F41.[id number] [address] 05/25/2017 10:02:34 05/25/2017 11:28:07 Essential hypertension 44433901 I10 Sleep apnea 29866310 G47 .30 Recurrent major depression 11405301 F33.9 Anxiety 19560645 F41.9 Osteoporosis 24921186 M8 1.0 Chronic no nalcoholic liver disease 98154101 K76.9 Weight gain 1568017 R63. 5 BMI [id number] [address] 08/18/2017 17:02:46 08/19/2017 09:30:34 Chronic nonalcoholic liver disease 32904524 K76.9 on alamax Recurrent major depression 64185490 F33.9 Myoclonus 33583134 G25.3 Essential hypertension 76051148 I10 Insomnia 777577741 G47.0 0 Osteoporosis 56908413 M8 1.0 used forteo and it increased by 11% and he uses vitaminD/k [id number] [facility] [address] [place] [address] 05/12/2018 14:45:15 05/12/2018 16:20:19 Recurrent major depression 30690863 F33.9 Essential hypertension 71602247 I10 Weight gain 3357250 R63. 5 BMI 37 Obstructiv e sleep apnea syndrome 03750123 G47.33 on cpap x 25 years Myoclonus 93758873 G25.3 pramiprexo le helps. Health Concerns Section Related Observation LastModified by Organization Detai ls LastModified Time None Recorded Concern Status LastModified by Organization Details LastModified Time None Recorded Advance Directives Directive None Recorded Payers Encounter Date Sequence Insurance Name Policy Number Policy Yo Covered Member ID Yo Member ID Guarantor Name 03/15/2017 2 [employer] - OPTIONS Edi Grant [id number] Edi Grant 05/25/2017 1 MEDICARE [place]: [facility] Edi Grant [id number] Edi Grant 05/25/2017 2 [employer] Edi Grant [id number] Edi Grant 08/18/2017 1 MEDICARE B-MO: [facility] Edi Grant [id number] Edi Grant 08/18/2017 2 [employer] [facility] Edi Josef Rudy [id number] Edi Bahena Rudy 05/12/2018 1 MEDICARE B-[place]: [facility] Edi Grant [id number] Edi Grant 05/12/2018 2 [employer] dEi Grant [id number] Edi Grant Notes Date Note Type Note Provider Name and Address Organization Details Recorded Time 03/23/2016 text/html 1. Sees Dr. Brody Rutledge- psychiatrist in [place] for years. He has helped him in so many ways. he actually does psychotherapy. He is on 3 drugs for depression. He is very obsessed with this election, and is having a hard time not being fearful. He cannot bear the thought of a trump [place] Trintellix 10 mg - 3 per day Buprenorphine 8 mg Sl- 1.5 tabs once daily makes him feel wonderful. Trazadone 100 mg. and mirtazipine 2. HTN- gets white coat htn. he takes lorazepam prior to BP being measured. Dad of stroke. 3. Osteoporosis- Bone density this year shows osteopenia. Uses jeffery-mag, got off strontium due to Dr Vital linking it to cancer. Vitamin D 20,000 Iu daily. 4. Recent anemia- B complex helps. He does not know the cause of this. [facility] 03/23/2016 22:26:02 03/15/2017 text/html 1. Lost 50 pound s an gained 25 pounds. 2. Depression- he went thro 2 rounds of Transcranial Magnetic stimulation at [place]. The second round did not help as much as first time.Bupenorphine is a SL prep for his depression. It is a opiod as percocet made him feel good. it is a terrific mood elevator for him.He is also on Trintellix 30 mg for depression- costs 450$ copay per month.He is mirtazipine 45 for anxiety an also on lorazepam.His Psychiatrist is Haleigh Rutledge in [place].He also sees Snehal Robb , a psychologist who helps with anxiety. 3. PCP is dr. Irish Box at [facility]. 2 years ago his ECG was good.7-8 years ago he had angina and had cardicac cath had to be done due to a false positive stress test. It was normal.He does have 70% Left carotid blockage and 50 % blockage on R carotid. 4. Dr Emerson in his lung doctor whom he will be seeing this afternoon. he has a hx of asthma.He thinks sublingual silver- colloidal that he takes every day has helped him to prevent 3 colds per year. this used to exacerbate asthma.he takes no meds and has an albuterol inhaler for rescue.He may use it pre cutting grass. 5. [place] rhubarb 3 caps helps him with constipation. this helps wth Buprenorphine 8 mg. 6. Osteoporosis- with homozygous vit D receptor.he needs a high vitamin D and 2 calcium tablets. 7. Memory issuse- used to always have trouble remembering peoples names. now he cannot remember words. Goes to [employer] and could not say latte .Since he has carotid blockages, and no family hx of alzehimers, he should get an MRI angiogram to look at circulation and collateral. Leslicarlos Arce mana Sitrion 03/15/2017 11:59:42 05/25/2017 text/html dr Carlos box- pCP 1. He is worried about his Fatty liver. he thinks it is going to kill him from cirrhosisMom never drank, but she had cirrhosis. she may have had hep c. she had ascites and from it. she had esophageal varices and bleeding and severe deafness. 2. Carotid arteries- with some blockages. and minimal plaque.Father had HTN. He was a smoker and an alcoholic. he had a stroke at 61. He also had sleep apnea . He did on the golf course from a cerebral hemorrhage; 3 . Worrier about his children- 2 girls and his grandchildren. Now he is worried about his health.he is going to [place] on the and then comes back for the holidays and then will go back till november.[facility] is where he will stay. they play golf and drink.He sits there watching them drinking ( he quit 2002)he does not feel supported by his . she enjoys martinis- 2 per day.he attended his 50th class reunion in [facility].He notes that he is aging. Lesli Sumanth mana Sitrion 05/25/2017 11:22:22 08/18/2017 text/html PCP- dr carlos box - he is not satisfied with him and so he wants to switch 1. He has not been sick in 5 years by using silverHe found out about it while buying a mattress- that was lined with silverHe used to get chest colds in the winter that lasted for 2 months. 2. we talked about Srinivasan Laguna and his book YOU ARE THE PLACEBO 3. He is about to leave for [place] for the winter. recent carotid doppler was normal - done due to bruitsECHO of the heart was normal Leslieliezer adair Sitrion 08/18/2017 18:48:59 05/12/2018 text/html Edi is a 67 yowm who is here for a follow up:CARLOS BOX Is his PCP 1. Low BP due to running around planning his wifes birthday dinner at [facility].they leave may 31 to july 07 . they celebrate thanksgiving and xmas here in [facility] and then they leave back for [place] after aug 2. last week, for 2-3 nights in a row, he has been feeling butterflies in his chest.he was taken off his mirtazipine and yesterday he got put on a sleep medicine and it really worked 3. went on an [employer] cruise in the tail end of march. He landed in [place] and he started profusely sweating. he flew back to [place] at the end of the cruise. his daughter sent him to the hospital and told him that he had pneumonia. they kept him one night.no diarrhea. 4. Depression is being treated by Dr haleigh Rutledge in [place]. Siria Flores is his therapist.He loves both of themhe is on Buprenorphine 8 mg- 1.5 tabs, sertraline 200 mg and trazodone 200 mgThis rules his life. he is happy when he is not depressed. [employer] was a ball ! 5. osteoporosis on prolia twice a year. Breanne adair [facility] 05/18/2018 13:06:39
--- OUTSIDE RECORDS SUMMARY | 2024-11-07 13:29 | XMS_ITS ---
Author Organization [facility] D Address [address] [place] [address] Care Team Providers Care Director Of Compliance Name Role Phone Panda Rutledge MD Unavailable [phone] Livier Zafar NP Primary Care Provider [phone] Active Problems Problem Noted Date Diagnosed Date Primary osteoarthritis of right knee 12/30/2020 Overview (12/30/2020): Added automatically from request for surgery [id number] Agitation 04/30/2020 Aggression 04/30/2020 Alcohol abuse 04/30/2020 [...] reflux 11/05/2004 Other and unspecified hyperlipidemia 11/05/2004 Current Treatment and Therapy Plans No current plan information found. Past Treatment and Therapy Plans Resolved Problems Problem Noted Date Diagnosed Date Resolved Date Anxiety and depression 07/27/201902/09 Memory impairment 07/27/2019 02/10/2024 Sleep difficulties 07/27/2019 Fatigue 04/07/2018 02/10/2024 Weight gain 05/25/2017 02/10/2024 Anxiety 03/15/2017 02/10/2024 Recurrent major depression 03/15/2017 0 02/10/2024 Insomnia, unspecified 03/30/20052023 Depressive disorder, not elsewhere classified 11/06/19 05 02/10/2024
--- OUTSIDE RECORDS SUMMARY | 2024-11-07 13:29 | XMS_ITS | Encounter Summary ---
Author Organization [facility] Address 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
--- OUTSIDE RECORDS SUMMARY | 2024-11-07 13:29 | XMS_ITS | Encounter Summary ---
Author Organization [facility] Address [address] [place] [address] Care Team Providers Care Associate Director Of Sales Name Role Phone Kalin Rojas DO Primary Care Provider Encounter Details Date Type Department Care Team (Late st Contact Info) Description 01/01/2004 Outpatient Historical [facility] Internal Medicine Medical Calcium A [facility] [address] [address] Solomon Hines MD [address] [place] [address] Social History Tobacco Use Types Packs/Day Years Used Date Smoking Tobacco: Never Assessed Sex and Gender Information Value Date Recorded Sex Assigned at Not on file Legal Sex Male 2:59 AM 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
--- OUTSIDE RECORDS SUMMARY | 2024-11-07 13:29 | XMS_ITS | Encounter Summary ---
Author Organization [facility] Address 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
--- OUTSIDE RECORDS SUMMARY | 2024-11-07 13:29 | XMS_ITS | Encounter Summary ---
Author Organization [facility] Address [address] [place] [address] Care Team Providers Care Washroom Attendant Name Role Phone Kalin Rojas DO Primary Care Provider Encounter Details Date Type Department Care Team (Late st Contact Info) Description 11/05/2004 Outpatient Historical [facility] Internal Medicine [facility] [address] [place] [address] Solomon Hines MD [address] [place] [address] Social History Tobacco Use Types Packs/Day Years Used Date Smoking Tobacco: Never Assessed Sex and Gender Information Value Date Recorded Sex Assigned at Not on file Legal Sex Male 2:59 AM BIRTH ATTENDANT Gender Identity Not on file Sexual Orientation Not on file documented as of this encounter Last Filed Vital Signs Vital Sign Reading Time Taken Comments Blood Pressure 120/90 11/05/2004 9:30 AM BIRTH ATTENDANT Pulse 78 11/05/2004 9:30 AM BIRTH ATTENDANT Temperature 36.4 C (97.6 F) 11/05/2004 9:30 AM BIRTH ATTENDANT Respiratory Rate 20 11/05/2004 9:30 AM BIRTH ATTENDANT Oxygen Saturation - - Inhaled Oxygen Concentration - - Weight 122.5 kg (270 lb) 11/05/2004 9:30 AM BIRTH ATTENDANT Height 188 cm (6' 2 ) 11/05/2004 9:30 AM BIRTH ATTENDANT Body Mass Index 34.67 11/05/2004 9:30 AM BIRTH ATTENDANT documented in this encounter Plan of Treatment Not on file documented as of this encounter Visit Diagnoses Not on filedocumented in this encounter Care Teams Washroom Attendant Relationship Specialty Start Date End Date Kalin Rojas DO PCP - General 08/08/15 documented as of this encounter
--- OUTSIDE RECORDS SUMMARY | 2024-11-07 13:29 | XMS_ITS | Referral Summary ---
Author Organization [facility] D Address [address] [place] [address] Care Team Providers Care Vice President Biostatistics Name Role Phone Panda Rutledge MD Unavailable [phone] Livier Zafar NP Primary Care Provider [phone] Allergies Active Allergy Reactions Criticality Noted Date [...] (12/30/2020): Added automatically from request for surgery [id number] Agitation 04/30/2020 Aggression 04/30/2020 Alcohol abuse 04/30/2020 [...] Influenza, Unspecified 05/17/2018 Pneumococcal Polysaccharide PPV23 06/16/2010 Social History Tobacco Use Types Packs/Day Years [...] on file Legal Sex Male 3:00 PM PYROTECHNICIAN Gender Identity Male 07/20/2018 11:18 AM PYROTECHNICIAN Sexual Orientation Straight 12/21/2020 8: 07 AM CDT Last Filed Vital Signs Vital Sign Reading [...] 01/20/2023 12:28 PM CDT Plan of Treatment Not on file Medical Devices Implanted Type Area Coyote Hunter Device Identifier Shelf Expiration Date Model / Serial / Lot [employer] [id number] Attune 5mm Cruciate Retaining Rotate Platform Knee 7 Insert - [id number] Implanted:Qty: 1 on 02/04/2021 by Guillermo Garrison MD at [facility] Right: Knee [employer] [id number] 09/22/2025 [id number] / / [id number] [employer] [id number] Attune Cementless Rotate Platform Knee 8 Baseplate Tibial - [id number] Implanted:Qty: 1 on 02/04/2021 by Guillermo Garrison MD at [facility] Right: Knee [employer] [id number] 12/20/2030 [id number] / / [id number] [employer] [id number] Attune Cruciate Retain Cementless Knee Right 7 Component Femoral - [id number] Implanted:Qty: 1 on 02/04/2021 by Guillermo Garrison MD at [facility] Right: Knee [employer] [id number] 09/22/2030 [id number] / / [id number] Procedures Procedure Name Priority Date/Time Associated Diagnosis [...] BOX Requesting: ANAND BOX Requesting Requesting ID: [id number] Attending Attending ID: [id number] Completed Time: 04/19/2017 08:49 AM Dictated Time: N/A Transcribed Time: 04/19/2017 11:13 AM Signed by: MATIDLE REEDER M.D. on 04/19/2017 11:13 AM Report [...] BOX Requesting: ANAND BOX Requesting Requesting ID: [id number] Attending Attending ID: [id number] Completed Time: 04/19/2017 08:49 AM Dictated Time: [...] FAX: NextGen Order #: Anand Box MD [facility] PROCEDURES Final Res ult from Last 3 Months or Most Recently Relevant to Health Maintenance Insurance [facility] MEDICARE [facility] MEDICARE [facility] Advance Directives For more information, please contact: [phone] Documents on File Type Date Recorded Patient Dairy Nutritionist Expl anation ADVANCE DIRECTIVE 02/04/2021 7:06 AM * Full Code (Latest Code Status on File) Date Activated Date Inactivated Comments 02/04/2021 12:20 PM 02/05/2021 3:14 PM Care Teams Vice President Biostatistics Relationship Specialty Start Date End Date Livier Zafar NP [address] [place] [address] PCP - General Nurse Practitioner 12/24/22 Panda Rutledge MD [address] [address] Referring Physician Psychiatry 04/30/20
--- OUTSIDE RECORDS SUMMARY | 2024-11-07 13:29 | XMS_ITS | Encounter Summary ---
Author Organization [facility] Address [address] [place] [address] Care Team Providers Care Transfer And Pumphouse Operator Name Role Phone Kalin Rojas DO Primary Care Provider Encounter Details Date Type Department Care Team (Late st Contact Info) Description 03/30/2005 Outpatient Historical [facility] Internal Medicine [facility] [address] [place] [address] Solomon Hines MD [address] [place] [address] Social History Tobacco Use Types Packs/Day Years Used Date Smoking Tobacco: Never Assessed Sex and Gender Information Value Date Recorded Sex Assigned at Not on file Legal 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 Male 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 Gender Identity Not on file Sexual Orientation Not on file documented as of this encounter Last Filed Vital Signs Vital Sign Reading Time Taken Comments Blood Pressure 140/86 03/30/2005 2:00 PM CDT Pulse 72 03/30/2005 2:00 PM CDT Temperature 37.2 C (98.9 F) 03/30/2005 2:00 PM CDT Respiratory Rate 12 03/30/2005 2:00 PM CDT Oxygen Saturation - - Inhaled Oxygen Concentration - - Weight 120.2 kg (265 lb) 03/30/2005 2:00 PM CDT Height 186.7 cm (6' 1.5 ) 03/30/2005 2:00 PM CDT Body Mass Index 34.49 03/30/2005 2:00 PM CDT documented in this encounter Plan of Treatment Not on file documented as of this encounter Visit Diagnoses Not on filedocumented in this encounter Care Teams Transfer And Pumphouse Operator Relationship Specialty Start Date End Date Kalin Rojas DO PCP - General 08/08/15 documented as of this encounter
--- OUTSIDE RECORDS SUMMARY | 2024-11-07 13:29 | XMS_ITS | Encounter Summary ---
Author Organization [facility] Address [address] [place] [address] Phone Care Team Providers Care Well Reactivator Operator Name Role Phone Anand Box MD Primary Care Provider Mango Iglesias MD Primary Care Provider Jyoti Gordillo MD Primary Care Provider [phone] Panda Rutledge MD Unavailable [phone] Livier Zafar NP Primary Care Provider [phone] Encounter Details Date Type Department Care Team (Latest Contact Info) Description 03/17/2017 Orders Only [facility] CONVERSION Scanning, Provider Social History Tobacco Use Types Packs/Day Years Used Date Smoking Tobacco: Former Sex and Gender Information Value Date Recorded Sex Assigned at Not on file Legal Sex Male 3:00 PM LEAD CUSTODIAN Gender Identity Male 07/20/2018 11:18 AM LEAD CUSTODIAN Sexual Orientation Straight 12/21/2020 8: 07 AM CDT documented as of this encounter Plan of Treatment Not on file documented as of this encounter Procedures Procedure Name Priority Date/Time Associated Diagnosis Comments PULMONARY FUNCTION TEST (PFT) 03/17/2017 9:54 AM CDT documented in this encounter Results * PULMONARY FUNCTION TEST (PFT) (03/17/2017 9:54 AM CDT) Anatomical Region Laterality Modality PFT us Provider Scanning PFT ORDERABLES Final Result documented in this encounter Visit Diagnoses Not on filedocumented in this encounter Additional Health Concerns Infection Onset Date Last Indicated Resolved Time Exposure, COVID-19 Comment:Added automatically based on COVID19 lab answers indicating exposure risk 06/10/2022 06/10/2022 06/10/2022 7:50 PM C DT COVID: Suspected 06/10/2022 06/10/2022 06/10/2022 7:50 PM CDT COVID19 06/10/2022 06/10/2022 06/20/2022 3:05 AM CDT documented as of this encounter Care Teams Well Reactivator Operator Relationship Specialty Start Date End Date Anand Box MD PCP - General 04/22/16 03/06/20 Mango Iglesias MD [address] [facility] [address] [place] [address] PCP - General Geriatric Medicine 03/07/20 04/29/20 Jyoti Gordillo MD [address] [facility] [address] [place] [address] PCP - General Rheumatology 04/30/20 12/23/22 Livier Zafar NP [address] [place] [address] PCP - General Nurse Practitioner 12/24/22 Panda Rutledge MD [address] [facility] [address] [place] [address] Referring Physician Psychiatry 04/30/20 documented as of this encounter
--- OUTSIDE RECORDS SUMMARY | 2024-11-07 13:29 | XMS_ITS | Clinical Summary ---
Author Organization [facility] Address [address] [place] [address] Phone Care Team Providers Care Fisheries Inspector Name Role Phone Kalin Rojas DO Primary Care Provider Allergies No known active allergies Medications LIPITOR 10 MG TAB 1 Every Day 30.00 2 09/14/2005 Active hydrochlorothiaz kristina (MICROZIDE) 12.5 mg Oral capsule Take by mouth. Active OLMESARTAN MEDOXOMIL (BENICAR ORAL) Take by mouth. Active SOD CHLORIDE/POT CHLORIDE/MAG (CARDIA ORAL) Take by mouth. Active ALBUTEROL INHALATION Take by inhalation. Active FLUOXETINE HCL (PROZAC ORAL) Take by mouth. Active ARIPIPRAZOLE (ABILIFY ORAL) Take by mouth. Active LORAZEPAM ORAL Take by mouth. Active TRAZODONE HCL (TRAZODONE ORAL) Take by mouth. Active MOMETASONE FUROATE (ASMANEX TWISTHALER INHALATION) Take by inhalation. Active solifenacin (VESICARE) 10 mg Oral Tab Take 1 Tab by mouth daily. 21 Tab 1 02/18/2012 Active Active Problems Problem Noted Date Diagnosed Date Unspecified sleep apnea 03/30/2005 Insomnia, unspecified 03/30/2005 Other specified disorder of rectum and anus 03/2005 Essential hypertension, benign 11/05/2004 Other and unspecified hyperlipidemia 11/05/2004 Depressive disorder, not elsewhere classified Esophageal reflux 11/05/2004 Social History Tobacco Use Types Packs/Day Years Used Date Smoking Tobacco: Former Cigarettes Q uit: 02/14/1989 Alcohol Use Standard Drinks/Week Comments No 0 (1 standard drink = 0.6 oz pur e alcohol) alcoholic, sober Sex and Gender Information Value Date Recorded Sex Assigned at Not on file Legal Sex Male 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 Gender Identity Not on file Sexual Orientation Not on file Occupation Industry Job Start Date Job End Date Not on file Not on file Not on file Not on file Last Filed Vital Signs Vital Sign Reading Time Taken Comments Blood Pressure 138/74 02/18/2012 11:35 AM CDT Pulse 65 02/18/2012 11:35 AM CDT Temperature 37.2 C (98.9 F) 03/30/2005 2:00 PM CDT Respiratory Rate 18 02/18/2012 11:35 AM CDT Oxygen Saturation 96% 02/18/2012 11:35 AM CDT Inhaled Oxygen Concentration - - Weight 122.5 kg (270 lb) 02/15/2012 1:08 PM CDT Height 185.4 cm (6' 1 ) 02/15/2012 1:08 PM CDT Body Mass Index 35.62 02/15/2012 1:08 PM CDT Plan of Treatment Health Maintenance Due Date Last Done Comments DTAP/TDAP/TD VACCINES (1 - Tdap) 11/13/1967 COLORECTAL SCREENING 1993 Colorectal Cancer Screening 1993 FIT-DNA Q 3 years 1993 FIT/FOBT Q 1 year 1993 Flex Sig/CT Colonography Q 5 years 1993 PNEUMOCOCCAL VACCINE 50+ YEARS (1 of 1 - PCV) 11/12/18 99 ZOSTER VACCINE (1 of 2) 1998 RSV VACCINE (60+ or ) (1 - 1-dose 75+ series) 11/13/2023 INFLUENZA VACCINE (#1) 2024 Insurance [employer] O OPEN ACCESS Advance Directives For more information, please contact: [phone] * Full Code (Latest Code Status on File) Date Activated Date Inactivated Comments 02/18/2012 11:26 AM 02/18/2012 1:37 PM * Full Code Date Activated Date Inactivated Comments 02/18/2012 9:51 AM 02/18/2012 11:26 AM Care Teams Fisheries Inspector Relationship Specialty Start Date End Date Kalin Rojas DO PCP - General 08/08/15
[2024-11-07 13:39] VITALS: BP 127/64; PULSE 73; RESP 15; TEMP 36.4; O2SAT 98
--- OUTSIDE RECORDS SUMMARY | 2024-11-07 14:40 | XMS_ITS | Encounter Summary ---
Author Organization [facility] Address 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
--- OUTSIDE RECORDS SUMMARY | 2024-11-07 14:40 | XMS_ITS | Data Portability ---
Author Organization MD - [facility], [employer] Address [address] [place] [address] Care Team Providers Care Protective Signal Installer Name Role Phone [facility] OTHER [facility] OTHER Assessment Encounter Date Assessment Date Assessment LastModified by Organization Details LastModified Time 12/28/2022 12/28/2022 Medication Rojo es d/c Diazepam decrease Donepezil to stop as in many cases this medication can make FTD s/sx worse. Will see how he does once the medication is stopped. Trazodone 150 mg q HS Depakote 500 mg q 8h Donepezil 10 mg q HS Quetiapine 100 mg q PM OT to start to try. Will see how he responds and related before adding anything else. Wellness Visit for Adults A wellness visit is when you see your healthcare provider to get screened for health problems. Your healthcare provider will also give you advice on how to stay healthy. Write down your questions so you remember to ask them. Ask your healthcare provider how often you should have a wellness visit. What happens at a wellness visit: Your healthcare provider will ask about your health, and your family history of health problems. This includes high blood pressure, heart disease, and cancer. He or she will ask if you have symptoms that concern you, if you smoke, and about your mood. You may also be asked about your intake of medicines, supplements, food, and alcohol. Any of the following may be done: Your weight will be checked. Your height may also be checked so your body mass index (BMI) can be calculated. Your BMI shows if you are at a healthy weight. Your blood pressure and heart rate will be checked. Your temperature may also be checked. Blood and urine tests may be done. Blood tests may be done to check your cholesterol levels. Abnormal cholesterol levels increase your risk for heart disease and stroke. You may also need a blood or urine test to check for diabetes if you are at increased risk. Urine tests may be done to look for signs of an infection or kidney disease. A physical exam includes checking your heartbeat and lungs with a stethoscope. Your healthcare provider may also check your skin to look for sun damage. Screening tests may be recommended. A screening test is done to check for diseases that may not cause symptoms. The screening tests you may need depend on your age, gender, family history, and lifestyle habits. For example, colorectal screening may be recommended if you are 50 years old or older. Screening tests you need if you are a woman: A Pap smear is used to screen for cervical cancer. Pap smears are usually done every 3 to 5 years depending on your age. You may need them more often if you have had abnormal Pap smear test results in the past. Ask your healthcare provider how often you should have a Pap smear. A mammogram is an x-ray of your breasts to screen for breast cancer. Experts recommend mammograms every 2 years starting at age 50 years. You may need a mammogram at age 49 years or younger if you have an increased risk for breast cancer. Talk to your healthcare provider about when you should start having mammograms and how often you need them. Vaccines you may need: Get an influenza vaccine every year. The influenza vaccine protects you from the flu. Several types of viruses cause the flu. The viruses guide changer time, so new vaccines are made each year. Get a tetanus-diphtheria (Td) booster vaccine every 10 years. This vaccine protects you against tetanus and diphtheria. Tetanus is a severe infection that may cause painful muscle spasms and lockjaw. Diphtheria is a severe bacterial infection that causes a thick covering in the back of your mouth and throat. Get a human papillomavirus (HPV) vaccine if you are female and aged 19 to 26 or male 19 to 21 and never received it. This vaccine protects you from HPV infection. HPV is the most common infection spread by sexual contact. HPV may also cause vaginal, penile, and anal cancers. Get a pneumococcal vaccine if you are aged 65 years or older. The pneumococcal vaccine is an injection given to protect you from pneumococcal disease. Pneumococcal disease is an infection caused by pneumococcal bacteria. The infection may cause pneumonia, meningitis, or an ear infection. Get a shingles vaccine if you are aged 60 or older, even if you have had shingles before. The shingles vaccine is an injection to protect you from the varicella-zoster virus. This is the same virus that causes chickenpox. Shingles is a painful rash that develops in people who had chickenpox or have been exposed to the virus. How to eat healthy: My Plate is a model for planning healthy meals. It shows the types and amounts of foods that should go on your plate. Fruits and vegetables make up about half of your plate, and grains and protein make up the other half. A serving of dairy is included on the side of your plate. The amount of calories and serving sizes you need depends on your age, gender, weight, and height. Examples of healthy foods are listed below: Eat a variety of vegetables such as dark green, red, and orange vegetables. You can also include canned vegetables low in sodium (salt) and frozen vegetables without added butter or sauces. Eat a variety of fresh fruits , canned fruit in 100% juice, frozen fruit, and dried fruit. Include whole grains. At least half of the grains you eat should be whole grains. Examples include whole-wheat bread, wheat pasta, brown rice, and whole-grain cereals such as oatmeal. Eat a variety of protein foods such as seafood (fish and shellfish), lean meat, and poultry without skin (turkey and chicken). Examples of lean meats include pork leg, shoulder, or tenderloin, and beef round, sirloin, tenderloin, and extra lean ground beef. Other protein foods include eggs and egg substitutes, beans, peas, soy products, nuts, and seeds. Choose low-fat dairy products such as skim or 1% milk or low-fat yogurt, cheese, and cottage cheese. Limit unhealthy fats such as butter, hard margarine, and shortening. Exercise: Exercise at least 30 minutes per day on most days of the week. Some examples of exercise include walking, biking, dancing, and swimming. You can also fit in more physical activity by taking the stairs instead of the elevator or parking farther away from stores. Include muscle strengthening activities 2 days each week. Regular exercise provides many health benefits. It helps you manage your weight, and decreases your risk for type 2 diabetes, heart disease, stroke, and high blood pressure. Exercise can also help improve your mood. Ask your healthcare provider about the best exercise plan for you. General health and safety guidelines: Do not smoke. Nicotine and other chemicals in cigarettes and cigars can cause lung damage. Ask your healthcare provider for information if you currently smoke and need help to quit. E-cigarettes or smokeless tobacco still contain nicotine. Talk to your healthcare provider before you use these products. Limit alcohol. A drink of alcohol is 12 ounces of beer, 5 ounces of wine, or 1 ounces of liquor. Lose weight, if needed. Being overweight increases your risk of certain health conditions. These include heart disease, high blood pressure, type 2 diabetes, and certain types of cancer. Protect your skin. Do not sunbathe or use tanning beds. Use sunscreen with a SPF 15 or higher. Apply sunscreen at least 15 minutes before you go outside. Reapply sunscreen every 2 hours. Wear protective clothing, hats, and sunglasses when you are outside. Drive safely. Always wear your seatbelt. Make sure everyone in your car wears a seatbelt. A seatbelt can save your life if you are in an accident. Do not use your cell phone when you are driving. This could distract you and cause an accident. auto slip cover installer if you need to make a call or send a text message. Practice safe sex. Use latex condoms if are sexually active and have more than one partner. Your healthcare provider may recommend screening tests for sexually transmitted infections (STIs). Wear helmets, lifejackets, and protective gear. Always wear a helmet when you ride a bike or motorcycle, go skiing, or play sports that could cause a head injury. Wear protective equipment when you play sports. Wear a lifejacket when you are on a boat or doing water sports. Signs and symptoms of when to seek further care reviewed with patient/caregiver/[facility]/facility staff. Patient to follow up with primary care provider or return to clinic for any worsening signs and symptoms. Always present to ER or Urgent Care with any progression of/alarming symptoms, significant changes in symptoms or any concerning or urgent matters. [facility] staff verbalized agreement and understanding of treatment plan. F/U 4 weeks, sooner if needed [email or web address] Not available 12/28/2022 12:43:03 01/25/2023 01/25/2023 Medication Darrel batista Trazodone 150 mg q HS Depakote 500 mg q 8h Donepezil 5 bmg q HS Quetiapine 100 mg q PM has been doing a bit better with changes. He has his good and bad days. Therapy ordered to work with [facility]. Behaviors have been a difficult avenue to tackle. Has had some improvements. Continue medication regimen. Signs and symptoms of when to seek further care reviewed with patient/caregiver/[facility]fac[facility] staff. Patient to follow up with primary care provider or return to clinic for any worsening signs and symptoms. Always present to ER or Urgent Care with any progression of/alarming symptoms, significant changes in symptoms or any concerning or urgent matters. [facility]/caregiver/[facility] staff verbalized agreement and understanding of treatment plan. F/U 4 weeks, sooner if needed [email or web address] Not available 01/25/2023 12:00:55 02/22/2023 02/22/2023 Medication Darrel batista Increase Medroxyprogesterone to 10 mg TID given his continued often times escalating sexually inappropriate behaviors BP much better and within JNC 8 guidelines. No abnormal cough noted labs to eval levels Signs and symptoms of when to seek further care reviewed with patient/caregiver/[facility]facility staff. Patient to follow up with primary care provider or return to clinic for any worsening signs and symptoms. Always present to ER or Urgent Care with any progression of/alarming symptoms, significant changes in symptoms or any concerning or urgent matters. Patient/caregiver/[facility]fac[facility] staff verbalized agreement and understanding of treatment plan. F/U 4 weeks, sooner if needed [email or web address] Not available 02/22/2023 14:45:45 03/22/2023 03/22/2023 Medication Darrel batista his behaviors have been better. He still has impulsivity. Concerned about his continued weight gain with eating facility meals and then brings in more. He just keeps eating and eating. Calcium supplement for low calcium and doing well. Continued worsening cognition. NPH ruled out and noted to have Dementia. Inappropriate sexual behavior which has been better than it was previously. He still impulsive and will continue such but not at the severity as it once was. Signs and symptoms of when to seek further care reviewed with patient/caregiver/[facility]facility staff. Patient to follow up with primary care provider or return to clinic for any worsening signs and symptoms. Always present to ER or Urgent Care with any progression of/alarming symptoms, significant changes in symptoms or any concerning or urgent matters. Patient/caregiver/[facility] staff verbalized agreement and understanding of treatment plan. F/U 4 weeks, sooner if needed [email or web address] Not available 03/22/2023 17:25:52 04/13/2023 04/13/2023 Medication Rojo es Increase Amlodipine to 10 mg q HS for increasing HTN d/c Amlodipine 5 mg his behaviors have been better. He still has impulsivity. Concerned about his continued weight gain with eating facility meals and then brings in more. He just keeps eating and eating. Continued worsening cognition. NPH ruled out and noted to have Dementia. Inappropriate sexual behavior which has been better and often more redirectable. HTN - blood pressure elevated above goal of JNC8 guidelines. Goal is less than 140/80. His systolic was above such. Will increase Amlodipine to bring bp within goal. Signs and symptoms of when to seek further care reviewed with patient/caregiver/[facility]/facility staff. Patient to follow up with primary care provider or return to clinic for any worsening signs and symptoms. Always present to ER or Urgent Care with any progression of/alarming symptoms, significant changes in symptoms or any concerning or urgent matters. Patient/caregiver/[facility] staff verbalized agreement and understanding of treatment plan. F/U 4 weeks, sooner if needed [email or web address] Not available 04/13/2023 09:44:14 Plan of Treatment Reminders Order Date Submit Date Provider Last Modified By Organization Details Last Modified Time Details Appointments None recorded. Lab vitamin D, 25-hydroxy , total, serum 2022 023 [email or web address] [facility], [address] [place], [address], 3 13:05:52 valproic acid, total, serum 2022 023 [email or web address] [facility], [address] [place], [address], 3 13:05:53 CBC 2022 023 [email or web address], [address] [place], [address], 3 09:10:26 CMP, serum or plasma 2022 023 [email or web address] [facility], [address] [place], [address], 3 09:14:48 magnesium, serum or plasma 2022 023 [facility], [address] [place], [address], 3 09:14:48 valproic acid, total, serum [address], [place], [address], 3 16:21:24 unlisted lab - vitamin D total, 25-hydroxy * [address], [place], [address], 3 16:21:25 CMP, serum or plasma [address], [place], [address], 3 16:21:23 unlisted lab - complete blood count with auto diff* [address], [place], [address], 3 16:21:23 magnesium, serum or plasma [address], [place], [address], 3 16:21:24 Referral speech therapy referral 2022 023 [facility], [address] [place] [address] [place], [address], 4 18:20:09 occupation al therapist referral [address] Main Fax, [address] [place] [address], [address], 3 20:23:38 physical therapist referral [address], [address] [place] [address] [place], [address], 3 20:23:38 occupation al therapist referral 2022 023 [facility] Main Fax, [address] [place] [address], [id number], 3 02:18:08 Procedures None recorded. Surgeries None recorded. Imaging None recorded. Medication Orders amlodipine 10 mg tablet 2022 023 [facility], [address] [place] [address], [id number], 3 20:22:00 medroxypro gesterone 10 mg tablet 2022 023 [facility], [address] [place] [address], [id number], 3 20:22:31 trazodone 150 mg tablet [address], [address] [place] [address], [id number], 3 20:20:02 divalproex ER 500 mg tablet,ext ended release 24 hr [address], [address] [place] [address], [id number], 20:19:37 quetiapine 100 mg tablet 2022 023 [facility], [address] [place] [address], [id number], 20:19:57 donepezil 5 mg tablet 2022 023 [email or web address] [facility], [address] [place] [address], [id number], 20:19:39 Patient TargetsNo targets recorded. Patient Instructions Encounter Date Encounter Id Patient Instructions Last Modified By Organization Details Last Modified Time 12/28/2022 [id number] care plan* [email or web address] Not available 03/2023 12:43:20 fall risk screening* [email or web address] Not available 12/28/2022 12:43:20 03/22/2023 [id number] Started on calcium supplement as his calcium levels were low. [email or web address] Not available 03/22/2023 17:19:34 04/13/2023 [id number] Started on calcium supplement as his calcium levels were low. [email or web address] Not available 04/05/2023 09:46:05 Reason for Referral Occupational Therapist Refer ral for Frontotemporal dementia Referring Physician: [facility], Encounter Date: 12/28/2022 Referring Physician: [facility], Encounter Date: 01/25/2023 Occupational Therapist Refer ral for Frontotemporal dementia Referring Physician: [facility], Encounter Date: 01/25/2023 Physical Therapist Referral for Frontotemporal dementia Referring Physician: [facility], Encounter Date: 01/25/2023 Results Created Date Observation Date Name Description Value Unit Range Abnormal Flag Note LastModifiedBy Organization Detail LastModifiedTime 12/04/19 23 12/03/2022 COMPL ETE BLOOD COUNT WITH AUTO DIFF* WBC 5.19 10E3/ uL 4.50-1 1.50 Not Available [facility] [address], [place], [address], 12/04/2022 17:27:54 12/04/19 23 12/03/2022 COMPL ETE BLOOD COUNT WITH AUTO DIFF* RBC 4.73 10E6/ uL 4.60-6 .00 Not Available [facility] [address], [place], [address], 12/04/2022 17:27:54 12/04/19 23 12/03/2022 COMPL ETE BLOOD COUNT WITH AUTO DIFF* HGB 15.2 g/dL 14.0-1 8.0 Not Available [facility] [address], [place], [address], 12/04/2022 17:27:54 12/04/19 23 12/03/2022 COMPL ETE BLOOD COUNT WITH AUTO DIFF* HCT 43.6 % 40.0-5 4.0 Not Available [facility] [address], [place], [address], 12/04/2022 17:27:54 12/04/19 23 12/03/2022 COMPL ETE BLOOD COUNT WITH AUTO DIFF* MCV 92 fL 80-100 Not Available [facility] [address], [place], [address], 12/04/2022 17:27:54 12/04/19 23 12/03/2022 COMPL ETE BLOOD COUNT WITH AUTO DIFF* MCH 32 pg 26-32 Not Available [facility] [address], [place], [address], 12/04/2022 17:27:54 12/04/19 23 12/03/2022 COMPL ETE BLOOD COUNT WITH AUTO DIFF* MCHC 35 g/dL 32-36 Not Available [facility] [address], [place], [address], 12/04/2022 17:27:54 12/04/19 23 12/03/2022 COMPL ETE BLOOD COUNT WITH AUTO DIFF* RDW 13.9 % 11.5-1 4.5 Not Available [facility] [address], [place], [address], 12/04/2022 17:27:54 12/04/19 23 12/03/2022 COMPL ETE BLOOD COUNT WITH AUTO DIFF* plt 264 10E3/ uL 150-45 0 Not Available [facility] [address], [place], [address], 12/04/2022 17:27:54 12/04/19 23 12/03/2022 COMPL ETE BLOOD COUNT WITH AUTO DIFF* neut% 32.6 % 50.0-7 0.0 low Not Available [facility] [address], [place], [address], 12/04/2022 17:27:54 12/04/19 23 12/03/2022 COMPL ETE BLOOD COUNT WITH AUTO DIFF* lymph% 51.8 % 18.0-4 2.0 high Not Available [facility] [address], [place], [address], 12/04/2022 17:27:54 12/04/19 23 12/03/2022 COMPL ETE BLOOD COUNT WITH AUTO DIFF* mono% 12.5 % 2.0-11 .0 high Not Available [facility] [address], [place], [address], 12/04/2022 17:27:54 12/04/19 23 12/03/2022 COMPL ETE BLOOD COUNT WITH AUTO DIFF* eos% 1.9 % 1.0-3. 0 Not Available [facility] [address], [place], [address], 12/04/2022 17:27:54 12/04/19 23 12/03/2022 COMPL ETE BLOOD COUNT WITH AUTO DIFF* baso% 0.8 % 0.0-2. 0 Not Available [facility] [address], [place], [address], 12/04/2022 17:27:54 12/04/19 23 12/03/2022 COMPL ETE BLOOD COUNT WITH AUTO DIFF* Ig% 0.4 % 0.0-0. 6 Not Available [facility] [address], [place], [address], 12/04/2022 17:27:54 12/04/19 23 12/03/2022 COMPL ETE BLOOD COUNT WITH AUTO DIFF* neut# 1.69 10E3/ uL 2.30-8 .10 low Not Available [facility] [address], [place], [address], 12/04/2022 17:27:54 12/04/19 23 12/03/2022 COMPL ETE BLOOD COUNT WITH AUTO DIFF* lymph# 2.69 10E3/ uL 0.80-4 .80 Not Available [facility] [address], [place], [address], 12/04/2022 17:27:54 12/04/19 23 12/03/2022 COMPL ETE BLOOD COUNT WITH AUTO DIFF* mono# 0.65 10E3/ uL 0.45-1 .30 Not Available [facility] [address], [place], [address], 12/04/2022 17:27:54 12/04/19 23 12/03/2022 COMPL ETE BLOOD COUNT WITH AUTO DIFF* eos# 0.10 10E3/ uL 0.00-0 .40 Not Available [facility] [address], [place], [address], 12/04/2022 17:27:54 12/04/19 23 12/03/2022 COMPL ETE BLOOD COUNT WITH AUTO DIFF* baso# 0.04 10E3/ uL 0.00-0 .10 Not Available [facility] [address], [place], [address], 12/04/2022 17:27:54 12/04/19 23 12/03/2022 COMPL ETE BLOOD COUNT WITH AUTO DIFF* Ig# 0.02 10E3/ uL 0.00-0 .09 Not Available [facility] [address], [place], [address], 12/04/2022 17:27:54 12/04/19 23 12/03/2022 COMPL ETE BLOOD COUNT WITH AUTO DIFF* reflex SMEAR REVIEW Not Available [facility] [address], [place], [address], 12/04/2022 17:27:54 12/04/19 23 12/03/2022 COMPR EHENS BRENNA METAB OLIC PANEL * glucose 85 mg/dL 82-115 Not Available [facility] [address], [place], [address], 12/04/2022 17:27:54 12/04/19 23 12/03/2022 COMPR EHENS BRENNA METAB OLIC PANEL * BUN 13 mg/dL 8-23 Not Available [facility] [address], [place], [address], 12/04/2022 17:27:54 12/04/19 23 12/03/2022 COMPR EHENS BRENNA METAB OLIC PANEL * calcium 8.1 mg/dL 8.8-10 .2 low Not Available [facility] [address], [place], [address], 12/04/2022 17:27:54 12/04/19 23 12/03/2022 COMPR EHENS BRENNA METAB OLIC PANEL * creatinine 0.80 mg/dL 0.80-1 .30 Not Available [facility] [address], [place], [address], 12/04/2022 17:27:54 12/04/19 23 12/03/2022 COMPR EHENS BRENNA METAB OLIC PANEL * egfraa >60.00 mL/mi n/1.7 3m2 >60.00 Not Available [facility] [address], [place], [address], 12/04/2022 17:27:54 12/04/19 23 12/03/2022 COMPR EHENS BRENNA METAB OLIC PANEL * egfrnaa >60.00 mL/mi n/1.7 3m2 >60.00 Not Available [facility] [address], [place], [address], 12/04/2022 17:27:54 12/04/19 23 12/03/2022 COMPR EHENS BRENNA METAB OLIC PANEL * sodium 142 mmol/ L 136-14 5 Not Available [facility] [address], [place], [address], 12/04/2022 17:27:54 12/04/19 23 12/03/2022 COMPR EHENS BRENNA METAB OLIC PANEL * potassium 3.7 mmol/ L 3.5-5. 1 Not Available [facility] [address], [place], [address], 12/04/2022 17:27:54 12/04/19 23 12/03/2022 COMPR EHENS BRENNA METAB OLIC PANEL * chloride 104 mEq/L 98-107 Not Available [facility] [address], [place], [address], 12/04/2022 17:27:54 12/04/19 23 12/03/2022 COMPR EHENS BRENNA METAB OLIC PANEL * carbon dioxide 26 mmol/ L 23-30 Not Available [facility] [address], [place], [address], 12/04/2022 17:27:54 12/04/19 23 12/03/2022 COMPR EHENS BRENNA METAB OLIC PANEL * total protein 6.3 g/dL 6.2-8. 1 Not Available [facility] [address], [place], [address], 12/04/2022 17:27:54 12/04/19 23 12/03/2022 COMPR EHENS BRENNA METAB OLIC PANEL * albumin 3.3 g/dL 3.2-4. 6 Not Available [facility] [address], [place], [address], 12/04/2022 17:27:54 12/04/19 23 12/03/2022 COMPR EHENS BRENNA METAB OLIC PANEL * globulin 3.0 g/dL 2.3-3. 4 Not Available [facility] [address], [place], [address], 12/04/2022 17:27:54 12/04/19 23 12/03/2022 COMPR EHENS BRENNA METAB OLIC PANEL * A/G ratio 1.1 g/dL 0.8-2. 0 Not Available [facility] [address], [place], [address], 12/04/2022 17:27:54 12/04/19 23 12/03/2022 COMPR EHENS BRENNA METAB OLIC PANEL * alkaline phosphatase 54 U/L 30-120 Not Available [facility] [address], [place], [address], 12/04/2022 17:27:54 12/04/19 23 12/03/2022 COMPR EHENS BRENNA METAB OLIC PANEL * ALT (SGPT) 44 U/L 13-40 high Not Available [facility] [address], [place], [address], 12/04/2022 17:27:54 12/04/19 23 12/03/2022 COMPR EHENS BRENNA METAB OLIC PANEL * AST (SGOT) 34 U/L 19-48 Not Available [facility] [address], [place], [address], 12/04/2022 17:27:54 12/04/19 23 12/03/2022 COMPR EHENS BRENNA METAB OLIC PANEL * bilirubin, total 0.55 mg/dL 0.20-1 .10 Not Available [facility] [address], [place], [address], 12/04/2022 17:27:54 12/04/19 23 12/03/2022 VALPR OIC ACID* valproic acid 55.9 ?g/mL 50.0-1 00.0 Refer ence Range for Thera peuti c Judith ntrat ion = 50.0 - 100.0 ?g/mL Dosin g not provi ded. Time to peak oral dose for serum : Dival proex sodiu m: -Eliz yerolando relea se (DR): table t and sprin kle capsu les: ~4 hours -Exte nded relea se (ER), 24 hour: 4 to 17 hours -Imme diate relea se enter ic-co ated table t [Yuni mary produ ct]: 4 hours Valpr oic acid: -Eliz yed relea se capsu le: 2 hours Not Available [facility] [address], [place], [address], 12/04/2022 17:27:55 02/26/20 23 02/25/2023 COMPL ETE BLOOD COUNT WITH AUTO DIFF* WBC 5.38 10E3/ uL 4.50-1 1.50 Not Available [facility] [address], [place], [address], 02/26/2023 16:21:23 02/26/20 23 02/25/2023 COMPL ETE BLOOD COUNT WITH AUTO DIFF* RBC 4.78 10E6/ uL 4.60-6 .00 Not Available [facility] [address], [place], [address], 02/26/2023 16:21:23 02/26/20 23 02/25/2023 COMPL ETE BLOOD COUNT WITH AUTO DIFF* HGB 15.1 g/dL 14.0-1 8.0 Not Available [facility] [address], [place], [address], 02/26/2023 16:21:23 02/26/20 23 02/25/2023 COMPL ETE BLOOD COUNT WITH AUTO DIFF* HCT 49.9 % 40.0-5 4.0 Not Available [facility] [address], [place], [address], 02/26/2023 16:21:23 02/26/20 23 02/25/2023 COMPL ETE BLOOD COUNT WITH AUTO DIFF* MCV 104 fL 80-100 high Not Available [facility] [address], [place], [address], 02/26/2023 16:21:23 02/26/20 23 02/25/2023 COMPL ETE BLOOD COUNT WITH AUTO DIFF* MCH 32 pg 26-32 Not Available [facility] [address], [place], [address], 02/26/2023 16:21:23 02/26/20 23 02/25/2023 COMPL ETE BLOOD COUNT WITH AUTO DIFF* MCHC 30 g/dL 32-36 low Not Available [facility] [address], [place], [address], 02/26/2023 16:21:23 02/26/20 23 02/25/2023 COMPL ETE BLOOD COUNT WITH AUTO DIFF* RDW 15.4 % 11.5-1 4.5 high Not Available [facility] [address], [place], [address], 02/26/2023 16:21:23 02/26/20 23 02/25/2023 COMPL ETE BLOOD COUNT WITH AUTO DIFF* plt 267 10E3/ uL 150-45 0 Not Available [facility] [address], [place], [address], 02/26/2023 16:21:23 02/26/20 23 02/25/2023 COMPL ETE BLOOD COUNT WITH AUTO DIFF* neut% 39.8 % 50.0-7 0.0 low Not Available [facility] [address], [place], [address], 02/26/2023 16:21:23 02/26/20 23 02/25/2023 COMPL ETE BLOOD COUNT WITH AUTO DIFF* lymph% 45.4 % 18.0-4 2.0 high Not Available [facility] [address], [place], [address], 02/26/2023 16:21:23 02/26/20 23 02/25/2023 COMPL ETE BLOOD COUNT WITH AUTO DIFF* mono% 12.1 % 2.0-11 .0 high Not Available [facility] [address], [place], [address], 02/26/2023 16:21:23 02/26/20 23 02/25/2023 COMPL ETE BLOOD COUNT WITH AUTO DIFF* eos% 1.7 % 1.0-3. 0 Not Available [facility] [address], [place], [address], 02/26/2023 16:21:23 02/26/20 23 02/25/2023 COMPL ETE BLOOD COUNT WITH AUTO DIFF* baso% 0.6 % 0.0-2. 0 Not Available [facility] [address], [place], [address], 02/26/2023 16:21:23 02/26/20 23 02/25/2023 COMPL ETE BLOOD COUNT WITH AUTO DIFF* Ig% 0.4 % 0.0-0. 6 Not Available [facility] [address], [place], [address], 02/26/2023 16:21:23 02/26/20 23 02/25/2023 COMPL ETE BLOOD COUNT WITH AUTO DIFF* neut# 2.15 10E3/ uL 2.30-8 .10 low Not Available [facility] [address], [place], [address], 02/26/2023 16:21:23 02/26/20 23 02/25/2023 COMPL ETE BLOOD COUNT WITH AUTO DIFF* lymph# 2.44 10E3/ uL 0.80-4 .80 Not Available [facility] [address], [place], [address], 02/26/2023 16:21:23 02/26/20 23 02/25/2023 COMPL ETE BLOOD COUNT WITH AUTO DIFF* mono# 0.65 10E3/ uL 0.45-1 .30 Not Available [facility] [address], [place], [address], 02/26/2023 16:21:23 02/26/20 23 02/25/2023 COMPL ETE BLOOD COUNT WITH AUTO DIFF* eos# 0.09 10E3/ uL 0.00-0 .40 Not Available [facility] [address], [place], [address], 02/26/2023 16:21:23 02/26/20 23 02/25/2023 COMPL ETE BLOOD COUNT WITH AUTO DIFF* baso# 0.03 10E3/ uL 0.00-0 .10 Not Available [facility] [address], [place], [address], 02/26/2023 16:21:23 02/26/20 23 02/25/2023 COMPL ETE BLOOD COUNT WITH AUTO DIFF* Ig# 0.02 10E3/ uL 0.00-0 .09 Not Available [facility] [address], [place], [address], 02/26/2023 16:21:23 02/26/20 23 02/25/2023 COMPR EHENS BRENNA METAB OLIC PANEL * glucose 82 mg/dL 82-115 Not Available [facility] [address], [place], [address], 02/26/2023 16:21:23 02/26/20 23 02/25/2023 COMPR EHENS BRENNA METAB OLIC PANEL * BUN 12 mg/dL 8-23 Not Available [facility] [address], [place], [address], 02/26/2023 16:21:23 02/26/20 23 02/25/2023 COMPR EHENS BRENNA METAB OLIC PANEL * calcium 8.0 mg/dL 8.8-10 .2 low Not Available [facility] [address], [place], [address], 02/26/2023 16:21:23 02/26/20 23 02/25/2023 COMPR EHENS BRENNA METAB OLIC PANEL * creatinine 0.81 mg/dL 0.80-1 .30 Not Available [facility] [address], [place], [address], 02/26/2023 16:21:23 02/26/20 23 02/25/2023 COMPR EHENS BRENNA METAB OLIC PANEL * egfraa >60.00 mL/mi n/1.7 3m2 >60.00 Not Available [facility] [address], [place], [address], 02/26/2023 16:21:23 02/26/20 23 02/25/2023 COMPR EHENS BRENNA METAB OLIC PANEL * egfrnaa >60.00 mL/mi n/1.7 3m2 >60.00 Not Available [facility] [address], [place], [address], 02/26/2023 16:21:23 02/26/20 23 02/25/2023 COMPR EHENS BRENNA METAB OLIC PANEL * sodium 143 mmol/ L 136-14 5 Not Available [facility] [address], [place], [address], 02/26/2023 16:21:23 02/26/20 23 02/25/2023 COMPR EHENS BRENNA METAB OLIC PANEL * potassium 3.9 mmol/ L 3.5-5. 1 Not Available [facility] [address], [place], [address], 02/26/2023 16:21:23 02/26/20 23 02/25/2023 COMPR EHENS BRENNA METAB OLIC PANEL * chloride 107 mEq/L 98-107 Not Available [facility] [address], [place], [address], 02/26/2023 16:21:23 02/26/20 23 02/25/2023 COMPR EHENS BRENNA METAB OLIC PANEL * carbon dioxide 23 mmol/ L 23-30 Not Available [facility] [address], [place], [address], 02/26/2023 16:21:23 02/26/20 23 02/25/2023 COMPR EHENS BRENNA METAB OLIC PANEL * total protein 6.3 g/dL 6.2-8. 1 Not Available [facility] [address], [place], [address], 02/26/2023 16:21:23 02/26/20 23 02/25/2023 COMPR EHENS BRENNA METAB OLIC PANEL * albumin 3.2 g/dL 3.2-4. 6 Not Available [facility] [address], [place], [address], 02/26/2023 16:21:23 02/26/20 23 02/25/2023 COMPR EHENS BRENNA METAB OLIC PANEL * globulin 3.1 g/dL 2.3-3. 4 Not Available [facility] [address], [place], [address], 02/26/2023 16:21:23 02/26/20 23 02/25/2023 COMPR EHENS BRENNA METAB OLIC PANEL * A/G ratio 1.0 g/dL 0.8-2. 0 Not Available [facility] [address], [place], [address], 02/26/2023 16:21:23 02/26/20 23 02/25/2023 COMPR EHENS BRENNA METAB OLIC PANEL * alkaline phosphatase 56 U/L 30-120 Not Available [facility] [address], [place], [address], 02/26/2023 16:21:23 02/26/20 23 02/25/2023 COMPR EHENS BRENNA METAB OLIC PANEL * ALT (SGPT) 47 U/L 13-40 high Not Available [facility] [address], [place], [address], 02/26/2023 16:21:23 02/26/20 23 02/25/2023 COMPR EHENS BRENNA METAB OLIC PANEL * AST (SGOT) 26 U/L 19-48 Not Available [facility] [address], [place], [address], 02/26/2023 16:21:23 02/26/20 23 02/25/2023 COMPR EHENS BRENNA METAB OLIC PANEL * bilirubin, total 0.49 mg/dL 0.20-1 .10 Not Available [facility] [address], [place], [address], 02/26/2023 16:21:23 02/26/20 23 02/25/2023 MAGNE SIUM* magnesium 1.80 mg/dL 1.60-2 .40 Not Available [facility] [address] [facility], [place], [address], 02/26/2023 16:21:24 02/26/20 23 02/25/2023 VALPR OIC ACID* valproic acid 46.0 ?g/mL 50.0-1 00.0 low Refer ence Range for Thera peuti c Judith ntrat ion = 50.0 - 100.0 ?g/mL Dosin g not provi ded. Time to peak oral dose for serum : Dival proex shadiau m: -Eliz fry se (): table t and sprin kle capsu les: ~4 hours -Exte nded relea se (ER), 24 hour: 4 to 17 hours -Imme diate relea se enter ic-co ated table t [Yuni mary produ ct]: 4 hours Valpr oic acid: -Eliz yed relea capsu le: 2 hours Not Available [facility] [address], [place], [address], 02/26/2023 16:21:24 02/26/20 23 02/25/2023 VITAM IN D TOTAL , 25-HY DROXY * vitamin D total, 25-hydroxy 114.4 NG/mL Refer ence Range and Inter preta tion: 0 - 17 Years : ----- ----- --- Defic iency <20 ng/mL Optim um Level >80 ng/mL 18 Years and Older : ----- ----- ----- ---- Sever e Defic iency <10 ng/mL Mild- Moder ate Defic iency 10 - 24 ng/mL Optim al Level 25 - 80 ng/mL Toxic ity Possi ble >80 ng/mL Not Available [facility] [address], [place], [address], 02/26/2023 16:21:25 04/13/20 23 04/14/2023 CBC (H/H, RBC, INDIC ES, WBC, PLT) white blood cell count 4.9 thous and/u L 3.8-10 .8 normal Not Available [facility] [address] [place], [address], 04/14/2023 09:10:26 04/13/20 23 04/14/2023 CBC (H/H, RBC, INDIC ES, WBC, PLT) red blood cell count 4.44 harley on/uL 4.20-5 .80 normal Not Available [facility] [address] [place], [address], 04/14/2023 09:10:04/13/2004/14/2023 CBC (H/H, RBC, INDIC ES, WBC, PLT) hemoglobin 14.5 g/dL 13.2-1 7.1 normal Not Available [address], [address], 04/14/2023 09:10:04/13/2004/14/2023 CBC (H/H, RBC, INDIC ES, WBC, PLT) hematocrit 43.6 % 38.5-5 0.0 normal Not Available [address], [address], 04/14/2023 09:10:04/13/2004/14/2023 CBC (H/H, RBC, INDIC ES, WBC, PLT) MCV 98.2 fL 80.0-1 00.0 normal Not Available [address], [address], 04/14/2023 09:10:04/13/2004/14/2023 CBC (H/H, RBC, INDIC ES, WBC, PLT) MCH 32.7 pg 27.0-3 3.0 normal Not Available [address], [address], 04/14/2023 09:10:04/13/2004/14/2023 CBC (H/H, RBC, INDIC ES, WBC, PLT) MCHC 33.3 g/dL 32.0-3 6.0 normal Not Available [address], [address], 04/14/2023 09:10:04/13/2004/14/2023 CBC (H/H, RBC, INDIC ES, WBC, PLT) RDW 13.6 % 11.0-1 5.0 normal Not Available [address], [address], 04/14/2023 09:10:26 04/13/20 23 04/14/2023 CBC (H/H, RBC, INDIC ES, WBC, PLT) platelet count 225 thous and/u L 140-40 0 normal Not Available [address], [address], 04/14/2023 09:10:26 04/13/2004/14/2023 CBC (H/H, RBC, INDIC ES, WBC, PLT) MPV 9.8 fL 7.5-12 .5 normal Not Available [address], [address], 04/14/2023 09:10:26 04/13/2004/14/2023 MAGNE SIUM magnesium 2.1 mg/dL 1.5-2. 5 normal Not Available [address], [address], 04/14/2023 12:42:47 04/13/2004/14/2023 COMPR EHENS BRENNA METAB OLIC PANEL glucose 88 mg/dL 65-99 normal Fasti ng refer ence inter jay Not Available [address], [address], 04/14/2023 12:42:48 04/13/2004/14/2023 COMPR EHENS BRENNA METAB OLIC PANEL urea nitrogen (BUN) 12 mg/dL 7-25 normal Not Available [address], [address], 04/14/2023 12:42:48 04/13/2004/14/2023 COMPR EHENS BRENNA METAB OLIC PANEL creatinine 0.92 mg/dL 0.70-1 .28 normal Not Available [address], [address], 04/14/2023 12:42:48 04/13/2004/14/2023 COMPR EHENS BRENNA METAB OLIC PANEL eGFR 87 mL/mi n/1.7 3m2 > or = 60 normal Not Available [address], [address], 04/14/2023 12:42:48 04/13/2004/14/2023 COMPR EHENS BRENNA METAB OLIC PANEL BUN/creatini ne ratio SEE NOTE: (calc ) 6-22 Not Repor jerardo: BUN and Creat inine are withi n refer ence range . Not Available [address], [address], 04/14/2023 12:42:48 04/13/2004/14/2023 COMPR EHENS BRENNA METAB OLIC PANEL sodium 141 mmol/ L 135-14 6 normal Not Available [address], [address], 04/14/2023 12:42:48 04/13/2004/14/2023 COMPR EHENS BRENNA METAB OLIC PANEL potassium 4.6 mmol/ L 3.5-5. 3 normal Not Available [address], [address], 04/14/2023 12:42:48 04/13/2004/14/2023 COMPR EHENS BRENNA METAB OLIC PANEL chloride 105 mmol/ L 98-110 normal Not Available [address], [address], 04/14/2023 12:42:48 04/13/2004/14/2023 COMPR EHENS BRENNA METAB OLIC PANEL carbon dioxide 24 mmol/ L 20-32 normal Not Available [address], [address], 04/14/2023 12:42:48 04/13/2004/14/2023 COMPR EHENS BRENNA METAB OLIC PANEL calcium 8.6 mg/dL 8.6-10 .3 normal Not Available [address], [address], 04/14/2023 12:42:48 04/13/2004/14/2023 COMPR EHENS BRENNA METAB OLIC PANEL protein, total 6.0 g/dL 6.1-8. 1 low Not Available [address], [address], 04/14/2023 12:42:48 04/13/2004/14/2023 COMPR EHENS BRENNA METAB OLIC PANEL albumin 3.6 g/dL 3.6-5. 1 normal Not Available [address], [address], 04/14/2023 12:42:48 04/13/20 23 04/14/2023 COMPR EHENS BRENNA METAB OLIC PANEL globulin 2.4 g/dL_ (calc ) 1.9-3. 7 normal Not Available [address], [address], 04/14/2023 12:42:48 04/13/2004/14/2023 COMPR EHENS BRENNA METAB OLIC PANEL albumin/glob ulin ratio 1.5 (calc ) 1.0-2. 5 normal Not Available [address], [address], 04/14/2023 12:42:48 04/13/20 23 04/14/2023 COMPR EHENS BRENNA METAB OLIC PANEL bilirubin, total 0.9 mg/dL 0.2-1. 2 normal Not Available [address], [address], 04/14/2023 12:42:48 04/13/2004/14/2023 COMPR EHENS BRENNA METAB OLIC PANEL alkaline phosphatase 47 U/L 35-144 normal Not Available [address], [address], 04/14/2023 12:42:48 04/13/20 23 04/14/2023 COMPR EHENS BRENNA METAB OLIC PANEL AST 27 U/L 10-35 normal Not Available [facility] [address] [place], [address], 04/14/2023 12:42:48 04/13/20 23 04/14/2023 COMPR EHENS BRENNA METAB OLIC PANEL ALT 28 U/L 9-46 normal Not Available [address] [address] [place], [address], 04/14/2023 12:42:48 04/13/2004/14/2023 VITAM IN D,25- OH,TO STEPHON,I A vitamin D,25-oh,tota l,ia 67 NG/mL 30-100 normal Vitam in D Statu s 25-OH Vitam in D: Defic iency : <20 ng/mL Insuf ficie ncy: 20 - 29 ng/mL Optim al: > or = 30 ng/mL For 25-OH Vitam in D testi ng on patie nts on D2-monsalve pplem entat ion and patie nts for whom quant itati on of D2 and D3 fract ions is requi red, the [facility] e[facility](TM ) 25-OH VIT D, (D2,D 3), LC/MS /MS is recom arturo d: order code 52547 (saji ents >2yrs ). See Note 1 Note 1 For addit ional infor kylie bolanos refer to http: //suzie Marcano stDia gnost ics.c om/fa q/FAQ 199 (This link is being provi ded for infor guevara wells/ dileep glass purpo ses only. ) Not Available [address], [address], 04/14/2023 13:09:43 04/13/20 23 04/14/2023 VALPR OIC ACID valproic acid 59.3 mg/L 50.0-1 00.0 normal Not Available [id number], [place], [address], 04/14/2023 16:37:38 04/13/2004/14/2023 SPECI MEN INTEG RITY COMPR OMISE D specimen integrity compromised Whole blood , unspu n or parti ally spun gel barri er tube was recei jesse more than 6 hours since colle ction . A false eleva tion of K, Phos and LD as well as a false decre ase in gluco se may occur due to prolo nged conta ct with red cells . Not Available [facility] [id number], [place], [address], 04/14/2023 14:23:41 Result Notes None recorded. Problems Name Problem SNOMED Code Status Onset Date Resolution Date Notes Provider Name and Address Organization Details Recorded Time Essential hypertension 61580337 Active 2022 MEL Diehl-BC, PMHNP-BC [address] [place], [address], [facility] 3 19:29:16 Frontotemporal dementia 655126671 Active 2022 MEL Diehl-BC, PMHNP-BC [address] [place], [address], [facility] 3 19:29:18 Osteoarthritis of multiple joints 326034471 Active 2022 MEL Diehl-BC, PMHNP-BC [address] [place], [address], [facility] 3 17:48:09 Myoclonus 35925574 Active 2022 MEL Diehl-BC, PMHNP-BC [address] [place], [address], [facility] 3 17:48:06 Vitamin D deficiency 27413424 Active 2022 THEO DiehlP-BC, PMHNP-BC [address] [place], [address], [facility] 3 16:26:59 Moderate recurrent major depression 35639682 Active 2022 Livier Zafar, [facility] [address] [facility] [address], [facility] 3 16:28:40 Hypocalcemia 4600880 Active 2022 Livier Zafar, [facility] [address] [facility] [address], [facility] 3 19:36:08 Problem Notes None recorded. Procedures Surgical History Date Name Laterality Status Provider Name and Address Organization Details Recorded Time 1 total replacement of right knee joint completed Krystina Ron [facility] 09/01/2022 16:04:34 Imaging Results None recorded. Procedure Notes None recorded. Medical Equipment None Reported. Allergies No known drug allergies Medications Name Sig Start Date Stop Date Status Note LastModified by Organization Details LastModified Time vitamin k2 100mcg tab tablets active Not Available Not Available Not Available hm melatonin sub 10mg eaches active Not Available Not Available Not Available quetiapine 25 mg tablet Take 1 tablet twice a day by oral route for 30 days. 10/21 completed Not Available Not Available Not Available fluoxetine 40 mg capsule Take 1 capsule every day by oral route in the morning for 90 days. 11/02 completed Not Available Not Available Not Available medroxyprog esterone 10 mg tablet Take 1 tablet 3 times a day by oral route for 90 days. active Not Available Not Available No t Available donepezil 5 mg tablet TAKE 1 TABLET BY MOUTH AT BEDTIME active Not Available Not Available No t Available trazodone 50 mg tablet Take 1 tablet every day by oral route at dinner for 3 days. 12/22 completed Not Available Not Available Not Available donepezil 10 mg tablet Take 1 tablet every day by oral route at bedtime for 90 days. 12/28 completed Not Available Not Available Not Available ibuprofen 200 mg capsule Take 2 capsules every 12 hours by oral route for 90 days. 02/22 completed Not Available Not Available Not Available medroxyprog esterone 5 mg tablet TAKE 1 TABLET BY MOUTH 3 TIMES A DAY 02/23 completed Not Available Not Available Not Available amlodipine 5 mg tablet TAKE 1 TABLET BY MOUTH EVERY DAY 06/16 completed Not Available Not Available Not Available quetiapine 100 mg tablet Take 1 tablet every day by oral route in the evening for 90 days. active Not Available Not Available No t Available acetaminoph en ER 650 mg tablet,exte nded release active Not Available Not Available Not Available calcium 600 mg (as calcium carbonate 1,500 mg) tablet Take 1 tablet every day by oral route for 90 days. 06/16 completed Not Available Not Available Not Available tamsulosin 0.4 mg capsule TAKE 1 CAPSULE BY MOUTH EVERY DAY active Not Available Not Available No t Available trazodone 100 mg tablet Take 1 tablet every day by oral route in the evening for 3 days. 12/22 completed Not Available Not Available Not Available diazepam 2 mg tablet Take 1 tablet every day by oral route in the evening for 30 days. 12/28 completed Not Available Not Available Not Available amlodipine 10 mg tablet Take 1 tablet every day by oral route at bedtime for 90 days. active Not Available Not Available No t Available trazodone 150 mg tablet TAKE 1 TABLET BY MOUTH IN THE EVENING active Not Available Not Available No t Available oseltamivir 75 mg capsule 09/01 completed Not Available Not Available Not Available clotrimazol e-betametha sone 1 %-0.05 % topical cream APPLY TO THE AFFECTED AND SURROUNDI NG AREAS OF SKIN BY TOPICAL ROUTE 2 TIMES PER DAY IN THE MORNING AND EVENING FOR 2 WEEKS 12/22 completed Not Available Not Available Not Available Tums Ultra 400 mg (as calcium carbonate 1,000 mg) chewable tablet Take 1 tablet as needed by oral route for 30 days. 06/16 completed Not Available Not Available Not Available divalproex ER 500 mg tablet,exte nded release 24 hr TAKE 1 TABLET BY MOUTH EVERY 8 HOURS active Not Available Not Available No t Available fluoxetine 10 mg capsule Take 1 capsule every day by oral route for 90 days. active Not Available Not Available No t Available ibuprofen 200 mg tablet TAKE 2 TABLETS BY MOUTH EVERY 12 HOURS 06/16 completed Not Available Not Available Not Available pramipexole 0.25 mg tablet Take 1 tablet 3 times a day by oral route for 90 days. active Not Available Not Available No t Available gabapentin 300 mg capsule 09/01 completed Not Available Not Available Not Available hydrochloro thiazide 25 mg tablet Take 1 tablet every day by oral route as needed. active Not Available Not Available No t Available ergocalcife rol (vitamin D2) 1,250 mcg (50,000 unit) capsule Take 1 capsule every 2 weeks by oral route for 90 days. 06/16 completed Not Available Not Available Not Available lorazepam 1 mg tablet 02/22 completed Not Available Not Available Not Available fluticasone propionate 50 mcg/actuati on nasal spray,suspe nsion active Not Available Not Available Not Available clotrimazol e 1 % topical cream active Not Available Not Available Not Available divalproex ER 250 mg tablet,exte nded release 24 hr Take 1 tablet every day by oral route at noon for 30 days. 11/02 completed Not Available Not Available Not Available Melatonin (with B6) 5 mg-1 mg tablet active Not Available Not Available Not Available melatonin-p yridoxine HCl (vitamin B6) 5 mg-10 mg tablet TAKE 3 TABLETS BY MOUTH AT BEDTIME 01/22 completed Not Available Not Available Not Available melatonin 10 mg tablet Take 1 tablet every day by oral route in the evening for 90 days. 06/16 completed Not Available Not Available Not Available vitamin K2 100 mcg capsule Take 2 capsules every week by oral route for 90 days. 06/16 completed Not Available Not Available Not Available BinaxNOW COVID-19 Ag Self Test kit TEST DIRECTED TODAY 09/01 completed Not Available Not Available Not Available vitamin D3 1,250 mcg (50,000 unit)-vitam in K2 200 mcg capsule Take 1 capsule every week by oral route as directed. 01/22 completed Not Available Not Available Not Available Paxlovid 300 mg (150 mg x 2)-100 mg tablets in a dose pack TK 2 NIRMATREL VIR TS AND 1 RITONAVIR T TOGETHER PO BID FOR 5 DAYS BID FOR 5 DAYS 09/01 completed Not Available Not Available Not Available Vitals Date Recorded Body height Body mass index (BMI) Body weight Heart rate Respiratory rate Oxygen saturation Oxygen saturation in Arterial blood by Pulse oximetry Body temperature Pain severity - 0-10 verbal numeric rating [Score] - Reported Systolic blood pressure Diastolic blood pressure Provider Name and Address Organization Details Last Updated DateTime 3 185.42 cm 38.4 kg/m2 083170. 38 g 69 /min 18 /min 96 % 96 % 97.7 [degF] 0 136 mm[Hg] 78 mm[Hg] Priscila [facility] 3 12:00:13 Date Recorded Body height Body mass index (BMI) Body weight Heart rate Respiratory rate Oxygen saturation Oxygen saturation in Arterial blood by Pulse oximetry Body temperature Pain severity - 0-10 verbal numeric rating [Score] - Reported Systolic blood pressure Diastolic blood pressure Provider Name and Address Organization Details Last Updated DateTime 3 185.42 cm 38.9 kg/m2 686917. 47 g 68 /min 18 /min 96 % 96 % 97.1 [degF] 0 124 mm[Hg] 78 mm[Hg] Priscila Noonan [facility] 3 12:26:14 Date Recorded Body height Body mass index (BMI) Body weight Heart rate Respiratory rate Oxygen saturation Oxygen saturation in Arterial blood by Pulse oximetry Body temperature Pain severity - 0-10 verbal numeric rating [Score] - Reported Systolic blood pressure Diastolic blood pressure Provider Name and Address Organization Details Last Updated DateTime 3 185.42 cm 37.1 kg/m2 088173. 17 g 63 /min 18 /min 96 % 96 % 97.9 [degF] 0 126 mm[Hg] 78 mm[Hg] Priscila Saran [facility] 3 12:24:33 Date Recorded Body height Body mass index (BMI) Body weight Heart rate Respiratory rate Oxygen saturation Oxygen saturation in Arterial blood by Pulse oximetry Body temperature Pain severity - 0-10 verbal numeric rating [Score] - Reported Systolic blood pressure Diastolic blood pressure Provider Name and Address Organization Details Last Updated DateTime 3 185.42 cm 37.1 kg/m2 784047. 17 g 64 /min 20 /min 89 % 89 % 98 [degF] 0 124 mm[Hg] 78 mm[Hg] Catarino Berman [facility] 3 11:01:23 Date Recorded Body height Body mass index (BMI) Body weight Heart rate Respiratory rate Oxygen saturation Oxygen saturation in Arterial blood by Pulse oximetry Body temperature Pain severity - 0-10 verbal numeric rating [Score] - Reported Systolic blood pressure Diastolic blood pressure Provider Name and Address Organization Details Last Updated DateTime 3 185.42 cm 37 kg/m2 516044. 02 g 57 /min 18 /min 96 % 96 % 97.5 [degF] 0 152 mm[Hg] 80 mm[Hg] Catarino Berman [facility] 3 09:05:12 Social History Question Answer Notes LastModified by Organizat ion Details LastModified Time Tobacco Smoking Status [facility] 15:55:27 Do You Have An Advance Directive? Yes [email or web address] Information not available 09/01/2022 What Is Your Level Of Alcohol Consumption? Occasional Information not available 09/01/2022 How Many Times Per Week Do You Consume Alcohol? <1 Time Per Week [email or web address] Information not available 09/01/2022 How Many Years Have You Consumed Alcohol? 50 [email or web address] Information not available 09/01/2022 Are You Currently Sexually Active With Anyone Who Has Traveled (within The Last 12 Weeks) To A Zika-affected Area? No [email or web address] Information not available 09/01/2022 Are You Blind Or Do You Have Difficulty Seeing? Yes Glasses [email or web address] Information not available 09/01/2022 Is Blood Transfusion Acceptable In An Emergency? Yes [email or web address] Information not available 09/01/2022 What Is Your Level Of Caffeine Consumption? Moderate [email or web address] Information not available 09/01/2022 What Type Of Substation Operator Apprentice Do You Use? None [email or web address] Information not available 09/01/2022 In The 14 Days Before Symptom Onset, Have You Had Close Contact With A Laboratory-confir med COVID-19 While That Case Was Ill? No [email or web address] Information not available 09/01/2022 In The 14 Days Before Symptom Onset, Have You Had Close Contact With A Person Who Is Under Investigation For COVID-19 While That Person Was Ill? No [email or web address] Information not available 09/01/2022 Have You Been To An Area Known To Be High Risk For COVID-19? No [email or web address] Information not available 09/01/2022 Are You Currently Employed? No [email or web address] Information not available 09/01/2022 Are You Deaf Or Do You Have Serious Difficulty Hearing? 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 REGULAR [email or web address] Information not available 09/01/2022 Have You Processed Blood Or Body Fluids From An Ebola Virus Disease Patient Without Appropriate PPE? No Information not available 09/01/2022 Do You Reside In Or Have You Traveled To An Area Where Ebola Virus Transmission Is Active? No [email or web address] Information not available 09/01/2022 Do You Or Have You Ever Used E-cigarettes Or Vape? Never Used Electronic Cigarettes [email or web address] Information not available 09/01/2022 What Is The Highest Grade Or Level Of School You Have Completed Or The Highest Degree You Have Received? [id number] Information not available 09/01/2022 How Many Days Of Moderate To Strenuous Exercise, Like A Brisk Walk, Did You Do In The Last 7 Days? 0 [email or web address] Information not available 09/01/2022 Have There Been Any Changes To Your Family Or Social Situation? No Information no t available 09/01/2022 When Did You Quit Smoking? 16+yearssince lastcigarette [email or web address] Information not available 09/01/2022 Are There Any Guns Present In Your Home? No [email or web address] Information not available 09/01/2022 Which Of Your Hands Is Dominant? Right [email or web address] Information not available 09/01/2022 Have You Recently Or Are You Planning To Travel To An Area With Zika Virus? No [email or web address] Information not available 09/01/2022 Do You Have A Medical Power Of Gunner Mate? Yes Information not available 09/01/2022 What Was The Date Of Your Most Recent Tobacco Screening? 11/30/2022 [email or web address] Information not available 11/30/2022 How Many Children Do You Have? 2 [email or web address] Information not available 09/01/2022 What Is Your Current Pack Years? 10packyears Information not available 09/01/2022 Do You Have Any Pets? Yes Information not available 09/01/2022 What Is Your Relationship Status? Information not available 09/01/2022 Do You Use Your Seat Belt Or Car Seat Routinely? Yes [email or web address] Information not available 09/01/2022 Are You Sexually Active? No [email or web address] Information not available 09/01/2022 Do You Have Smoke And Carbon Monoxide Detectors In Your Home? Yes [email or web address] Information not available 09/01/2022 At What Age Did You Start Smoking Tobacco? 14 [email or web address] Information not available 09/01/2022 Are You Passively Exposed To Smoke? No [email or web address] Information no t available 09/01/2022 Do You Participate In Social Conversion Innovations? Yes Information not available 09/01/2022 What Types Of Sporting Activities Do You Participate In? None [email or web address] Information not available 09/01/2022 Do You Feel Stressed (tense, Restless, Nervous, Or Anxious, Or Unable To Sleep At Night)? [id number] [email or web address] Information not available 09/01/2022 Do You Use Any Illicit Or Recreational Drugs? No [email or web address] Information not available 09/01/2022 Do You Use Sunscreen Routinely? No [email or web address] Information not available 09/01/2022 How Many Years Have You Smoked Tobacco? 30 [email or web address] Information not available 09/01/2022 Have You Recently Traveled Abroad? No [email or web address] Information not available 09/01/2022 Are You Currently In School? No Information not available 09/01/2022 Do You Have Any Dietary Restrictions? No [email or web address] Information not available 09/01/2022 Do You Or Have You Ever Used Any Other Forms Of Tobacco Or Nicotine? No [email or web address] Information not available 09/01/2022 Sex: Male Functional Status Question Answer Note LastModified by Organizat ion Details LastModified Time Do you have difficulty walking or climbing stairs? Yes [email or web address] Information not available 09/01/2022 Do you have transportation difficulties? No [email or web address] Information not available 09/01/2022 Are you able to walk? YESWOREST Information not available 09/01/2022 Do you have difficulty doing errands alone? Yes [email or web address] Information not available 09/01/2022 Are you able to care for yourself? No [email or web address] Information not available 09/01/2022 Do you have difficulty dressing or bathing? Yes Information not available 09/01/2022 What is your exercise level? None Information not available 09/01/2022 Mental Status Question Answer Note LastModified by Organization D etails LastModified Time Do you have difficulty concentrating, remembering or making decisions? Yes [email or web address] Information no t available 09/01/2022 Family History Relationship Description Onset Age of this Age Resolved Age Notes LastModified by Organization Details LastModified Time Mother Hypertensive disorder [email or web address] Not available 2022 15:44:09 Mother Depressive disorder [email or web address] Not available 2022 15:44:26 Mother Heart disease [email or web address] Not available 2022 15:44:39 Mother Diabetes mellitus [email or web address] Not available 2022 15:45:06 Mother Liver problem [email or web address] Not available 2022 15:45:54 Father Hypertensive disorder [email or web address] Not available 2022 15:44:09 Father Alcohol abuse [email or web address] Not available 2022 15:44:17 Father Liver problem Not available 2022 15:45:25 Father Cerebrovascu lar accident [email or web address] Not available 06/2023 10:23:23 Medical History Condition Response Anxiety Disorder Y Obesity Y Alzheimers Disease Y Hospitalizations Y Genitourinary Diseases / Disorders () Y Infectious Disease/Disorders/Virus Y Cancer Y Urinary Incontinence Y Dementia Y Depression Y Pneumonia Y Vitamin deficiency Y Fractures Y Alcohol / Drug Abuse Y Obstructive Sleep Apnea Y Hypertension Y Immunizations Vaccine Type Date Status Note Provider Nam e and Address Organization Details Recorded Time COVID-19, mRNA, LNP-S, PF, 100 mcg/0.5mL dose or 50 mcg/0.25mL dose 01/01/2022 completed [facility] 09/23/2022 09:10:22 Past Encounters Encounter ID Performer Location Encounter Start Date Encounter Closed Date Diagnosis/Indication Diagnosis SNOMED-CT Code Diagnosis ICD10 Code Diagnosis Note [id number] Livier Zafar, ARCHITECTURAL ENGINEER-BC, PMHNP-BC [facility] [address] [place] [address] 09/02/2022 09:51:29 09/02/2022 18:56:13 Essential hypertension 35531061 I10 taking medication s. labs to eval.BP elevated at first. reports it is not usually as elevated as it has been. Had taken BP medication right before arrival. BP recheck pressure was going down. Anemia 727436070 D64.9 labs to eval levels Vitamin D deficiency 347 99002 E55.9 taking medication s. 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 Patient has moments of lucidity but often can be very confused. He is going to do what Sixto wants to do. Counseled on no medication to treat the disease but medication to treat the negative sxs that occur. Advance care planning 71 1542460 Z71.89 [id number] CRYSTAL Diehl, [facility] [address] [facility] [place] [address] 10/08/2022 16:50:23 10/09/2022 11:00:29 Essential hypertension 73025561 I10 BP significan tly elevated last visit. Much better. Will monitor and adjust medication s accordingl y. 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 Patient has moments of lucidity but often can be very confused. He is going to do what Sixto wants to do. However, he has eloped at least twice. He has been having increasing behaviors with staff and can be difficult to redirect.U rinating everywhere . At increas ed risk for falls 515508330 Z91.81 Candidal intertrigo 2661 26671 B37.2 [id number] MEL Diehl-BC, PMP- Telemedic ine [address] [facility] [place] [address] 10/21/2022 16:47:45 10/21/2022 20:22:59 Frontotemporal dementia 875664842 G31.01 Has been slightly better. Increased Seroquel to 100 mg TID. Will see if this helps. [id number] CRYSTAL Diehl, PMHNP-BC [facility] [address] [facility] [place] [address] 11/02/2022 06:43:11 11/02/2022 19:15:38 Frontotemporal dementia 401462902 G31.01 Previously changed Seroquel to 100 mg TID. Has been doing a bit better at times.Depa kote has been changed to 500 mg q8 hoursd/c Fluoxetine Osteoarthr itis of multiple joints 847900696 M15.9 Myoclonus 42404267 G25.3 [id number] Isi Peterson [facility] [address] [place] [address] 11/30/2022 05:39:51 11/30/2022 12:42:23 Frontotemporal dementia 770484041 G31.01 Despite the changes in Seroquel they have not provided any benefit. Despite the Fluoxetine being on and off of it has yielded no changes.Ti trate to get to Trazodone to 150 mg q PM and see if this helps with the agitation and related behaviors. Trazodone 50 mg q PM x 3 days then increase to 100 mg q PM x 3 days then increase to 150 mg q PM and we will see how he does with such.Rojo ing Seroquel 100 mg to q PM dosing only. Stop BID and TID dosing. Osteoarthr itis of multiple joints 639901173 M15.9 Myoclonus 99691863 G25.3 [id number] CRYSTAL Diehl, PMHNP[facility] [address] [place] [address] 12/28/2022 06:32:04 12/28/2022 20:58:21 Frontotemporal dementia 871995628 G31.01 Changes made to regimen because of behaviors and related. Adult [facility] th examination 141882826 Z00.01 Advance care planning 71 9668628 Z71.89 [id number] CRYSTAL iDehl, PMHNP-[facility] [address] [place] [address] 01/25/2023 06:40:28 01/25/2023 20:23:38 Frontotemporal dementia 383596230 G31.01 [id number] CRYSTAL Diehl, PMHNP-BC [facility] [address] [place] [address] 02/22/2023 08:40:33 02/22/2023 15:33:56 Frontotemporal dementia 449933167 G31.01 Continues with significan t impulsivit y along with eating constantly . Essential hypertension 92718107 I10 taking medication s. labs to eval levels Vitamin D deficiency 347 71612 E55.9 taking medication s. labs to eval levels Inappropri ate sexual behavior 691638719 F65.9 [id number] Livier Zafar, [facility] [address] [place] [address] 03/22/2023 07:14:31 03/22/2023 19:29:07 Frontotemporal dementia 406815663 G31.01 Inappropri ate sexual behavior 833146318 F65.9 Hypocalcemia 3817150 E83 .51 tolerating calcium and doing very well. No noted side effects. [id number] Livier Zafar [facility], [facility] [address] [place] [address] 04/13/2023 08:46:58 04/13/2023 18:28:12 Frontotemporal dementia 418615382 G31.01 Inappropri ate sexual behavior 228832230 F65.9 Essential hypertension 31782531 I10 Vitamin D deficiency 347 37361 E55.9 Health Concerns Section Related Observation LastModified by Organization Detai ls LastModified Time None Recorded Concern Status LastModified by Organization Details LastModified Time None Recorded Advance Directives Directive Y: Payers Encounter Date Sequence Insurance Name Policy Number Policy Yo Covered Member ID Yo Member ID Guarantor Name 12/28/2022 1 [place] Edi Grant [id number] Edi Grant 12/28/2022 2 [employer] HE[employer] OPTIONS (MEDICARE SUPPLEMENT) Edi Grant [id number] Edi Grant 01/25/2023 1 [place] Edi Grant [id number] Edi Grant 01/25/2023 2 [employer] HE[employer] OPTIONS (MEDICARE SUPPLEMENT) Edi Grant [id number] Edi Grant 02/22/2023 1 [place] Edi Grant [id number] Edi Grant 02/22/2023 2 [facility] OPTIONS (MEDICARE SUPPLEMENT) Edi Grant [id number] Edi Grant 03/22/2023 1 [place] Edi Grant [id number] Edi Grant 03/22/2023 2 [employer] OPTIONS (MEDICARE SUPPLEMENT) Edi Grant [id number] Edi Grant 04/13/2023 1 [place] Edi Grant [id number] Edi Grant 04/13/2023 2 [facility] HEALTHCARE OPTIONS (MEDICARE SUPPLEMENT) Edi Grant [id number] Edi Grant Notes Date Note Type Note Provider Name and Address Organization Details Recorded Time 12/28/2022 text/html DementiaReported robyn.Quality:short term memory loss; inability to learn or remember new information; forgetting names or everyday words; disoriented time, self, or place; inability to reason; difficulty with coordination Severity:moderate Context:difficulty planning or organizing; personality changes; compliance with medications Associated Symptoms:no depression; no paranoia; no anxiety; recent falls;irritability or agitation;incontinence ;[facility] Annual Wellness VisitReported robyn.Diet and Nutrition:discussed vitamin and supplement use; discussed portion control; discussed maintaining calcium balance; discussed diet improvement Fracture Risk:no sudden unexplained fractures Physical Activity:discussed weightbearing activities; discussed exercise habits Depression Risk:never feels sad, empty, or tearful; no loss of interest in activities; no significant changes in weight; no sleep disturbances or insomnia; no agitation; no loss of energy; no feelings of worthlessness or guilt; no thoughts of suicide;history of mood disorders;history of depression Orientation:disorienta tion to time;disorientation to date;disorientation to place Concentration and Memory:decreased concentrating ability;memory lapses or loss;forgetting words Speech/Motor difficulties:difficult y expressing formulated concepts;difficulty with fine manipulative tasks;difficulty writing/copying;slowed reaction time Hearing:loss of hearing: in both ears Vision:worsening Activities of Daily Living:able to feed self with limited or no assistance; able to get out of chair or bed with limited or no assistance;unable to bathe without assistance;unable to dress without assistance;unable to contol urination and bowels;unable to groom without assistance;unable to toilet without assistance Instrumental Activities of Daily Living:able to use the phone with limited or no assistance;unable to do house work without assistance;unable to grocery shop without assistance;unable to manage medications without assistance;unable to manage money without assistance;unable to to prepare meals without assistance Falls Risk Assessment:no fall since last visit; no dizziness/vertigo Home Safety:no unsafe génesis hazzards; no unsafe stairs; no unsafe gas appliances; working smoke/CO detectors; use of seatbelts; no fire arms; has hand bars in the bathroom/shower; good lighting in the home Livier Anderson [facility] [address] [place], [address], [facility] 12/28/2022 12:43:26 01/25/2023 text/html DementiaReported bystaff.Quality:short term memory loss; inability to learn or remember new information; forgetting names or everyday words; disoriented time, self, or place; inability to reason; difficulty with coordination Severity:moderate Context:difficulty planning or organizing; personality changes; compliance with medications Associated Symptoms:no depression; no paranoia; no anxiety; recent falls;irritability or agitation;incontinence ;wanderingNotes:Facili ty staff reports that he has his days. He is constantly calling and/or texting his that he wants to go home Livier Anderson NEAL Zafar, [address], [address], [facility] 01/25/2023 12:54:14 02/22/2023 text/html DementiaReported bystaff.Quality:short term memory loss; inability to learn or remember new information; forgetting names or everyday words; disoriented time, self, or place; inability to reason; difficulty with coordination Severity:moderate Context:difficulty planning or organizing; personality changes; compliance with medications Associated Symptoms:no depression; no paranoia; no anxiety; recent falls;irritability or agitation;incontinence ;wandering;inappropria te sexual behaviorNotes:Facility staff report that if he is not on porn he is masturbating.Staff announces before entering to allow him time to make himself decent but he will not do such. He will continue to have his private parts out and exposed. HTN - Compliant with medications. Does not report any MATIAS, blurry vision, dizziness, CP, SOB, or palpitations.Vitamin D - taking medications for bone health Livier Justin CRYSTAL Zafar, [facility]- [address] [place], [address], [facility] 02/22/2023 14:45:54 03/22/2023 text/html DementiaReported bystaff.Quality:short term memory loss; inability to learn or remember new information; forgetting names or everyday words; disoriented time, self, or place; inability to reason; difficulty with coordination Severity:moderate Context:difficulty planning or organizing; personality changes; compliance with medications Associated Symptoms:no depression; no paranoia; no anxiety; no irritability or agitation; recent falls;incontinence;wan deringNotes:has been doing a bit better. brings him food and he eats the meals the facility provides along with food brought by . hypocalcemia - noted to have low levels of calcium on routine labs. Started on calcium supplement. Livier RileyCRYSTAL Willson, [facility] [address] [place], [address], [facility] 03/22/2023 17:26:01 04/13/2023 text/html DementiaReported bystaff.Quality:short term memory loss; inability to learn or remember new information; forgetting names or everyday words; disoriented time, self, or place; inability to reason; difficulty with coordination Severity:moderate Context:difficulty planning or organizing; personality changes; compliance with medications Associated Symptoms:no depression; no paranoia; no anxiety; no irritability or agitation; recent falls;incontinence;wan deringNotes:has been doing a bit better. brings him food and he eats the meals the facility provides along with food brought by . HTN - Compliant with medications. Does not report any MATIAS, blurry vision, dizziness, CP, SOB, or palpitations. Has been having increasing blood pressure. Even at recheck elevated. CRYSTAL Diehl, [facility]- [address] [place], [address], [facility] 04/13/2023 09:44:28
--- OUTSIDE RECORDS SUMMARY | 2024-11-07 14:40 | XMS_ITS | Encounter Summary ---
Author Organization [facility] Address [address] [place] [address] Care Team Providers Care Concrete Stone Finisher Name Role Phone BobKalin pace Aneesh Primary Care Provider Encounter Details Date Type Department Care Team (Latest Contact Info) Description 11/05/2004 Outpatient Historical [facility], [address] Solomon Hines MD [address] [place] [address] BENIGN HYPERTENSION (Primary Dx) Social History Tobacco Use Types Packs/Day Years Used Date Smoking Tobacco: Never Assessed Sex and Gender Information Value Date Recorded Sex Assigned at Not on file Legal Sex Male 2:59 AM TUGBOAT DISPATCHER Gender Identity Not on file Sexual Orientation Not on file documented as of this encounter Plan of Treatment Not on file documented as of this encounter Procedures Procedure Name Priority Date/Time Associated Diagnosis Comments BASIC METABOLIC PANEL Routine 11/05/2004 10:15 AM TUGBOAT DISPATCHER documented in this encounter Results * BASIC METABOLIC PANEL (11/05/2004 10:15 AM TUGBOAT DISPATCHER) GLUCOSE 100 65 - 109 mg/dL INTERFACE [...] mmol/L INTERFACE SYSTEM 11/05/2004 10:1 5 AM TUGBOAT DISPATCHER us Solomon Hines MD CHEMISTRY ORDERABLES Final Res ult INTERFACE SYSTEM Refer to clinic/hospital department documented in this encounter Visit Diagnoses Diagnosis Essential hypertension, benign- Primary documented in this encounter Care Teams Concrete Stone Finisher Relationship Specialty Start Date End Date Kalin Rojas DO PCP - General 08/08/15 documented as of this encounter
--- OUTSIDE RECORDS SUMMARY | 2024-11-07 14:40 | XMS_ITS | Encounter Summary ---
Author Organization [facility] Address [address] [place] [address] Care Team Providers Care Boatwright Name Role Phone Kalin Rojas DO Primary Care Provider Encounter Details Date Type Department Care Team (Late st Contact Info) Description 11/05/2004 Outpatient Historical [facility] Internal [facility] [address] [facility] [address] [place] [address] Solomon Hines MD [address] [place] [address] Social History Tobacco Use Types Packs/Day Years Used Date Smoking Tobacco: Never Assessed Sex and Gender Information Value Date Recorded Sex Assigned at Not on file Legal Sex Male 2:59 AM BELT BUILDER Gender Identity Not on file Sexual Orientation Not on file documented as of this encounter Last Filed Vital Signs Vital Sign Reading Time Taken Comments Blood Pressure 120/90 11/05/2004 9:30 AM BELT BUILDER Pulse 78 11/05/2004 9:30 AM BELT BUILDER Temperature 36.4 C (97.6 F) 11/05/2004 9:30 AM BELT BUILDER Respiratory Rate 20 11/05/2004 9:30 AM BELT BUILDER Oxygen Saturation - - Inhaled Oxygen Concentration - - Weight 122.5 kg (270 lb) 11/05/2004 9:30 AM BELT BUILDER Height 188 cm (6' 2 ) 11/05/2004 9:30 AM BELT BUILDER Body Mass Index 34.67 11/05/2004 9:30 AM BELT BUILDER documented in this encounter Plan of Treatment Not on file documented as of this encounter Visit Diagnoses Not on filedocumented in this encounter Care Teams Boatwright Relationship Specialty Start Date End Date Kalin Rojas DO PCP - General 08/08/15 documented as of this encounter
--- OUTSIDE RECORDS SUMMARY | 2024-11-07 14:40 | XMS_ITS | Encounter Summary ---
Author Organization [facility] Address 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
--- OUTSIDE RECORDS SUMMARY | 2024-11-07 14:40 | XMS_ITS | Encounter Summary ---
Author Organization [facility] Address [address] [place] [address] Care Team Providers Care Insurance Consultant Name Role Phone Kalin Rojas DO Primary Care Provider Encounter Details Date Type Department Care Team (Late st Contact Info) Description 01/01/2004 Outpatient Historical [facility] Internal Medicine [facility] [place] [facility] [address] [address] Solomon Hines MD [address] [place] [address] Social History Tobacco Use Types Packs/Day Years Used Date Smoking Tobacco: Never Assessed Sex and Gender Information Value Date Recorded Sex Assigned at Not on file Legal Sex Male 2:59 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
--- OUTSIDE RECORDS SUMMARY | 2024-11-07 14:40 | XMS_ITS | Encounter Summary ---
Author Organization [facility] Address [address] [place] [address] Care Team Providers Care Printed Circuit Board Panels Developer Name Role Phone Bob Kalin Aneesh Primary Care Provider Encounter Details Date Type Department Care Team (Late st Contact Info) Description 09/14/2005 Orders Only [facility] 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 WHO CALLED: Pharmacy called. PHARMACY NUMBER: [phone] SECTION 1: REQUESTED ACTION hoang 09/14/05 at [...] on filedocumented in this encounter Care Teams Printed Circuit Board Panels Developer Relationship Specialty Start Date End Date Kalin Rojas DO PCP - General 08/08/15 documented as of this encounter
--- OUTSIDE RECORDS SUMMARY | 2024-11-07 14:40 | XMS_ITS | Clinical Summary ---
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
--- OUTSIDE RECORDS SUMMARY | 2024-11-07 14:40 | XMS_ITS | Clinical Summary ---
Author Organization [facility] Address [address] [place] [address] Care Team Providers Care Store Group Manager Name Role Phone Unavailable Primary Care Provider Unavailabl e Source Comments [facility],non-owned Affiliates and Associated Physician Practices is amultiple site organization consisting of ambulatory clinics and hospital sitesin [place], [place], [place] and [place]. This disclosure is being madepursuant to the Care Everywhere program and may not contain all information available regarding this patient. Last updated 18.[facility] Allergies No known active allergies Medications * [...]
--- OUTSIDE RECORDS SUMMARY | 2024-11-07 14:40 | XMS_ITS | Encounter Summary ---
Author Organization [facility] Address 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
--- OUTSIDE RECORDS SUMMARY | 2024-11-07 14:40 | XMS_ITS | Encounter Summary ---
Author Organization [facility] Address [address] [place] [address] Care Team Providers Care Recreation Worker Name Role Phone Kalin Rojas DO Primary Care Provider Encounter Details Date Type Department Care Team (Late st Contact Info) Description 03/30/2005 Outpatient Historical [facility] Internal Medicine [facility] [address] [place] [address] Solomon Hines MD [address] [place] [address] Social History Tobacco Use Types Packs/Day Years Used Date Smoking Tobacco: Never Assessed Sex and Gender Information Value Date Recorded Sex Assigned at Not on file 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
--- OUTSIDE RECORDS SUMMARY | 2024-11-07 14:40 | XMS_ITS | Encounter Summary ---
Author Organization [facility] Address 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
--- OUTSIDE RECORDS SUMMARY | 2024-11-07 14:40 | XMS_ITS | Encounter Summary ---
Author Organization [facility] Address [address] [place] [address] Phone Care Team Providers Care Hat Forming Machine Feeder Name Role Phone Anand Box MD Primary Care Provider Mango Iglesias MD Primary Care Provider [phone] Jyoti Gordillo MD Primary Care Provider [phone] Panda Rutledge MD Unavailable [phone] Livier Zafar NP Primary Care Provider [phone] Encounter Details Date Type Department Care Team (Latest Contact Info) Description 03/17/2017 Orders Only [facility] CONVERSION Scanning, Provider Social History Tobacco Use Types Packs/Day Years Used Date Smoking Tobacco: Former Sex and Gender Information Value Date Recorded Sex Assigned at Not on file Legal 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 Male 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 Gender Identity Male 07/20/2018 11:18 AM 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 Sexual Orientation Straight 12/21/2020 8: 07 AM [...] documented as of this encounter Care Teams Hat Forming Machine Feeder Relationship Specialty Start Date End Date Anand Box MD PCP - General 04/22/16 03/06/20 Mango Iglesias MD [address] [facility] [address] [place] [address] PCP - General Geriatric Medicine 03/07/20 04/29/20 Jyoti Gordillo MD [address] [facility] [address] [place] [address] PCP - General Rheumatology 04/30/20 12/23/22 Livier Zafar NP [address] [place] [address] PCP - General Nurse Practitioner 12/24/22 Panda Rutledge MD [address] [facility] [address] [place] [address] Referring Physician Psychiatry 04/30/20 documented as of this encounter
--- OUTSIDE RECORDS SUMMARY | 2024-11-07 14:40 | XMS_ITS | Encounter Summary ---
Author Organization [facility] Address [address] [place] [address] Care Team Providers Care Precast Molder Name Role Phone Kalin Rojas DO Primary [...] on file Legal Sex Male 2:59 AM PUTTY PATCHER Gender Identity Not on file Sexual Orientation Not on file documented as of this encounter Plan of Treatment Not on file documented as of this encounter Visit Diagnoses Diagnosis Sensorineural hearing loss, bilateral- Primary documented in this encounter Care Teams Precast Molder Relationship Specialty Start Date End Date Kalin Rojas DO PCP - General 08/08/15 documented as of this encounter
--- OUTSIDE RECORDS SUMMARY | 2024-11-07 14:41 | XMS_ITS | Clinical Summary ---
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 Gender Identity Male 07/20/2018 11:18 AM MULTIGRAPH OPERATOR Sexual Orientation Straight 12/21/2020 8: 07 AM [...] 09/10/2019, 04/19/2017 Medical Devices Implanted Type Area Account Service Associate Device Identifier Shelf Expiration Date Model / Serial / Lot [employer] [id number] Attune 5mm Cruciate Retaining Rotate Platform Knee 7 Insert - [id number] Implanted:Qty: 1 on 02/04/2021 by Guillermo Garrison MD at [facility] Right: Knee [employer] [id number] 09/22/2025 [id number] / / [id number] [employer] [id number] Attune Cementless Rotate Platform Knee 8 Baseplate Tibial - [id number] Implanted:Qty: 1 on 02/04/2021 by Guillermo Garrison MD at [facility] Right: Knee [employer] [id number] 12/20/2030 [id number] / / [id number] [employer] [id number] Attune Cruciate Retain Cementless Knee Right 7 Component Femoral - [id number] Implanted:Qty: 1 on 02/04/2021 by Guillermo Garrison MD at [facility] Right: Knee [employer] [id number] 09/22/2030 [id number] / / [id number] Procedures Procedure Name Priority Date/Time Associated Diagnosis [...] BOX Requesting: ANAND BOX Requesting Requesting ID: [id number] Attending Attending ID: [id number] Completed Time: 04/19/2017 08:49 AM Dictated Time: [...] BOX Requesting: ANAND BOX Requesting Requesting ID: [id number] Attending Attending ID: [id number] Completed Time: 04/19/2017 08:49 AM Dictated Time: [...] FAX: NextGen Order #: Anand Box MD [facility] PROCEDURES Final Res ult from Last 3 Months or Most Recently Relevant to Health Maintenance Insurance MEDICARE [facility] MEDICARE [facility] AARP Advance Directives For more information, please contact: [phone] Documents on File Type Date Recorded Patient Ticket Agent Expl anation ADVANCE DIRECTIVE 02/04/2021 7:06 AM * Full Code (Latest Code Status on File) Date Activated Date Inactivated Comments 02/04/2021 12:20 PM 02/05/2021 3:14 PM Care Teams Auto Refinisher Relationship Specialty Start Date End Date Livier Zafar NP [address] [place] [address] PCP - General Nurse Practitioner 12/24/22 Panda Rutledge MD [address] [address] Referring Physician Psychiatry 04/30/20
--- OUTSIDE RECORDS SUMMARY | 2024-11-07 14:41 | XMS_ITS ---
Author Organization [facility] Address [address] [place] [address] Care Team Providers Care Manager Transit Name Role Phone Panda Rutledge MD Unavailable [phone] Livier Zafar NP Primary Care Provider [phone] Active Problems Problem Noted Date Diagnosed Date Primary osteoarthritis of right knee 12/30/2020 Overview (12/30/2020): Added automatically from request for surgery [id number] Agitation 04/30/2020 Aggression 04/30/2020 Alcohol abuse 04/30/2020 [...]
--- OUTSIDE RECORDS SUMMARY | 2024-11-07 14:41 | XMS_ITS | Referral Summary ---
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 Gender Identity Male 07/20/2018 11:18 AM MEDICAL RECEPTIONIST Sexual Orientation Straight 12/21/2020 8: 07 AM [...] on file Medical Devices Implanted Type Area Manager Custom Device Identifier Shelf Expiration Date Model / Serial / Lot [employer] [id number] Attune 5mm Cruciate Retaining Rotate Platform Knee 7 Insert - [id number] Implanted:Qty: 1 on 02/04/2021 by Guillermo Garrison MD at [facility] Right: Knee [employer] [id number] 09/22/2025 [id number] / / [id number] [employer] [id number] Attune Cementless Rotate Platform Knee 8 Baseplate Tibial - [id number] Implanted:Qty: 1 on 02/04/2021 by Guillermo Garrison MD at [facility] Right: Knee [employer] [id number] 12/20/2030 [id number] / / [id number] [employer] [id number] Attune Cruciate Retain Cementless Knee Right 7 Component Femoral - [id number] Implanted:Qty: 1 on 02/04/2021 by Guillermo Garrison MD at [facility] Right: Knee [employer] [id number] 09/22/2030 [id number] / / [id number] Procedures Procedure Name Priority Date/Time Associated Diagnosis [...] BOX Requesting: ANAND BOX Requesting Requesting ID: [id number] Attending Attending ID: [id number] Completed Time: 04/19/2017 08:49 AM Dictated Time: [...] BOX Requesting: ANAND BOX Requesting Requesting ID: [id number] Attending Attending ID: [id number] Completed Time: 04/19/2017 08:49 AM Dictated Time: [...] FAX: NextGen Order #: Anand Box MD [facility] PROCEDURES Final Res ult from Last 3 Months or Most Recently Relevant to Health Maintenance Insurance [facility] MEDICARE [facility] MEDICARE [facility] Advance Directives For more information, please contact: [phone] Documents on File Type Date Recorded Patient Client Service Supervisor Expl anation ADVANCE DIRECTIVE 02/04/2021 7:06 AM * Full Code (Latest Code Status on File) Date Activated Date Inactivated Comments 02/04/2021 12:20 PM 02/05/2021 3:14 PM Care Teams Mussel Farmer Relationship Specialty Start Date End Date Livier Zafar NP [address] [place] [address] PCP - General Nurse Practitioner 12/24/22 Panda Rutledge MD [address] [address] Referring Physician Psychiatry 04/30/20
== END 2024-11-07 13:51 ==
PROVIDERS: Emergency Provider Physician Assistant; PCP Nurse Practitioner Family
DX: Z04.3 Encounter for examination and observation following other accident (principal); F03.90 Unspecified dementia, unspecified severity, without behavioral disturbance, psychotic disturbance, mood disturbance, and anxiety; N40.0 Benign prostatic hyperplasia without lower urinary tract symptoms; G47.30 Sleep apnea, unspecified; F32.A Depression, unspecified; F41.9 Anxiety disorder, unspecified; Z79.899 Other long term (current) drug therapy; W05.0XXA Fall from non-moving wheelchair, initial encounter
CPT/HCPCS: 99281